=== PATIENT | male | born 1955 | race Caucasian/White ===

== ENCOUNTER 2017-08-18 16:45 | Inpatient (IN) ==
[2017-08-18] MEDS ORDERED: Acetaminophen 325 MG TABLET PO ONE (19:05)
[2017-08-18] MEDS ORDERED: Naloxone 0.4 MG/ML INJ IVP PRN (19:32)
[2017-08-18] MEDS ORDERED: Acetaminophen 325 MG TABLET PO PRN (19:32)
[2017-08-18] MEDS ORDERED: Ondansetron 4 MG/2 ML VIAL IVP PRN (19:32)
--- NOTE | 2017-08-18 20:48 | Internal Med History&Physical ---
Date of Encounter: 08/18/17 Time of Encounter: 20:15 Assessment and Plan (1) NSTEMI (non-ST elevated myocardial infarction) Current visit: No Status: Acute Non-ST elevation [place] - currently chest pain-free Continue Aspirin, Plavix, Lipitor, Coreg, NTG as needed, IV Morphine as needed Avoid IV Heparin due to recent subdural hematoma Chest x-ray - no acute process EKG - sinus rhythm with no acute ST-T changes Troponin - 0.92, cycle troponin BNP - 85 Echocardiogram - pending PT/INR - 10.8/1.0 Cardiology consult - discussed with Dr. Steel, advised to continue Aspirin, Plavix for now Cardiac telemetry, labs in a.m., monitor closely (2) Subdural hematoma Current visit: Yes Status: Acute Recent Subdural Hematoma - s/p mechanical fall with injury - did not require any surgical intervention - no obvious focal neurological deficits Discharged from [facility] about 2 weeks ago Follow-up CT brain was done about 2 days ago as outpatient and results are pending Medical records from [facility] requested (3) CAD (coronary artery disease) Current visit: Yes Status: Chronic History of coronary artery disease status post stent Patient has been on Aspirin, Plavix and statin Qualifiers: Coronary Disease-Associated Artery/Lesion type: [place] artery [place] vs. transplanted heart: [place] heart Associated angina: with stable angina Qualified Code(s): I25.118 - Atherosclerotic heart disease of [place] coronary artery with other forms of angina pectoris (4) Hyperlipidemia Current visit: Yes Status: Chronic Continue Lipitor Qualifiers: Hyperlipidemia type: unspecified Qualified Code(s): E78.5 - Hyperlipidemia , unspecified (5) Alcohol abuse Current visit: Yes Status: Chronic Counseled about cessation, monitor for alcohol withdrawal Continue IV Thiamine, Folic Acid, CIWA protocol (6) Tobacco abuse Current visit: Yes Status: Chronic Patient states he smokes about 1 pack of cigarettes daily Counseled about cessation (7) DVT prophylaxis Current visit: Yes Status: Acute Continue SCDs, avoid anticoagulants due to recent subdural hematoma Internal Medicine - H&P: HPI Chief complaint: Chest pain Admitted From: Emergency Dept Plans for Post Hospital Care: Home History of present illness: Mr. Arriaza is a 62 year old male with past medical history of CVA, hyperlipidemia , hypertension, coronary artery disease status post stent and recent subdural hematoma. Patient presents as a transfer from [facility] for chest pain. Examined in the room. Patient is awake and alert. Not in any distress. Able to provide history. and daughter are at bedside. Patient states he woke up at around 10 AM this morning with chest pain. Patient describes it as left side and substernal chest pain radiating to left arm. Describes it as constant burning and pressure type of pain. He initially thought it was heartburn. Initial pain was 7 out of 10. Pain was constant. Patient was then taken to the ED by his , about 6 hours after symptom onset. Patient also complains of palpitations and mild shortness of breath. No aggravating factors. Alleviated with nitroglycerin. Patient states he is currently chest pain-free. States he is hungry and wants to eat something now. No other associated symptoms. According to family, patient had a subdural hematoma about 4 weeks ago, and was admitted at [facility]. Patient patient was in the hospital for about 2 weeks because of the subdural hematoma and alcohol withdrawal. Patient had a follow-up CT scan as outpatient about 2 days ago, and the results are still pending. Patient states he continues to smoke about 1 pack cigarettes daily. He states he had about 3-4 beers yesterday. Initial workup at [facility] revealed elevated troponin at 0.10. I do not have an EKG from [facility] at this time. Chest x-ray is negative. Repeat troponin here is 0.92, and EKG shows sinus rhythm and I do not see any acute ST- T changes. Patient has been given Aspirin, Plavix and Lipitor. He cannot receive IV Heparin at this time because of recent subdural hematoma. I have discussed with on-call jointer machine operator, Dr. Samy Steel. He agrees with continuing only Aspirin and Plavix. Patient will be evaluated by cardiology. I have discussed with the patient and his family regarding his condition and that he has NSTEMI. They are interested and agreed. Today also that IV heparin cannot be given at this time. CODE STATUS full code. Past Med Surg Social Fam HX - Past Medical History Medical history: CVA, hyperlipidemia, hypertension, myocardial infarction Psychiatric history: depression - Past Surgical History Surgical History: angioplasty/stent - Social History Smoking Status: Current every day smoker Smokeless Tobacco Status: No Alcohol use: heavy, recent Drug use: none Internal Medicine - H&P: Meds Atorvastatin [Lipitor] 40 mg PO HS 08/18/17 [History] Carvedilol [Coreg] 6.25 mg PO BIDWM 08/18/17 [History] Clopidogrel [Plavix] 75 mg PO DAILY 08/18/17 [History] FLUoxetine HCl [Fluoxetine HCl] 10 mg PO DAILY 08/18/17 [History] NIFEdipine [Nifedipine ER] 90 mg PO DAILY 08/18/17 [History] 3 Allergy/AdvReac Type Severity Reaction Status Date / Time No Known Allergies Allergy Verified 07/07/17 09:48 All Systems PM: A 10-system review of systems was performed and is negative for pertinent findings except as documented above in the HPI. - Constitutional Constitutional: no fatigue, no fever(s), no weakness - EENT Eyes: no blurry vision - Cardiovascular Cardiovascular ROS IM: chest pain, palpitations, no diaphoresis, no dyspnea, no dyspnea on exertion, no edema, no lightheadedness, no orthopnea, no syncope - Gastrointestinal Gastrointestinal: heartburn, no abdominal pain, no bloating, no cramping, no diarrhea, no hematemesis, no hematochezia, no nausea, no vomiting - Genitourinary Genitourinary ROS male: no dysuria - Musculoskeletal Musculoskeletal ROS IM: no back pain - Neurological Neurological ROS: no confusion, no dizziness, no loss of vision, no numbness, no tingling - Constitutional Vitals: Temp Pulse Resp BP Pulse Ox 98.0 F 94 20 132/93 96 08/18/17 18:38 08/18/17 18:38 08/18/17 18:38 08/18/17 18:38 08/18/17 18:38 General appearance: Present: cooperative, A&O X 3, pleasant, no acute distress, answers questions appropriately - Head Head exam: Present: atraumatic - Eye Eye exam: Present: EOMI - ENT ENT exam: Present: mucous membranes moist - Neck Neck exam general surgery: Present: full ROM - Respiratory Respiratory exam: Present: CTAB. Absent: accessory muscle use, chest wall tenderness, rales, rhonchi, wheezes, tachypnea - Cardiovascular Cardiovascular exam: Present: RRR, +S1, +S2 - GI/Abdominal GI/Abdominal exam: Present: soft. Absent: distended, firm, guarding, tenderness - Extremities Exam Extremities exam: Present: radial pulses palpable and symmetrical. Absent: calf tenderness, cyanotic, pedal edema - Neurological Exam Neurological exam: Present: alert, oriented X3, no focal deficits. Absent: facial droop, speech deficit
[2017-08-18] MEDS ORDERED: Folic Acid 1 MG TABLET PO SCH (21:00)
[2017-08-18] MEDS ORDERED: Thiamine (B-1) 100 MG in D5% in Water 50 ML IVPB SCH (21:00)
[2017-08-18] MEDS ORDERED: Nitroglycerin 0.4 MG TAB.SUBL SL PRN (21:52)
[2017-08-19 02:52] LABS: Prothrombin Time 11.1 Seconds (9.4-12.1)
[2017-08-19 02:56] LABS: Basophils % 0.6 %; Eosinophils # 0.2 K/mcL (0.0-0.6); Eosinophils % 2.5 %; Hematocrit 41.1 % (37.5-50.1); Hemoglobin 13.7 g/dL (12.9-16.9); Immature Granulocytes % 0.3 % (0-4); Lymphocytes # 1.5 K/mcL (0.6-4.6); Lymphocytes % 24.5 %; Mean Corpuscular HGB Conc 33.3 g/dL (31.6-35.5); Mean Corpuscular Hemoglobin 32.9 pg (28.0-33.3); Mean Corpuscular Volume 98.6 fL (83.0-100.0); Mean Platelet Volume 9.6 fL (9.4-12.4); Monocytes # 0.7 K/mcL (0.0-1.3); Monocytes % 11.5 %; Neutrophils # 3.8 K/mcL (1.6-8.9); Platelet Count 292 K/mcL (140-400); Red Blood Count 4.17 M/mcL (4.19-5.50); Red Cell Distribution Width 13.4 % (11.5-14.5); Segmented Neutrophils % 60.6 %
[2017-08-19 03:12] LABS: BUN/Creatinine Ratio 9 (6-26); Blood Urea Nitrogen 9 mg/dL (8-26); Calcium 8.6 mg/dL (8.6-10.8); Carbon Dioxide 21 mEq/L (19-29); Chloride 106 mEq/L (98-109); Cholesterol 149 mg/dL (< 200); Glucose 113 mg/dL (70-99); HDL Cholesterol 25 mg/dL (40-59); LDL Cholesterol,Calculated 94 mg/dL (0-99); Osmolality,Calculated 285 (280-300); Potassium 3.6 mEq/L (3.5-4.5); Sodium 138 mEq/L (136-145); Triglycerides 151 mg/dL (< 150); eGFR For African Americans > 60 (> 60); eGFR For Non-African Americans > 60 (> 60)
[2017-08-19] MEDS ORDERED: Heparin 25,000 UNIT/500 ML D5W 25,000 UNIT/500 ML MLS IVC SCH (03:30)
--- NOTE | 2017-08-19 03:39 | Event Note ---
Date of Encounter: 08/19/17 Time of Encounter: 03:15 Troponin has bumped up to 2.98. Repeat EKG does not show any changes from the previous EKG, sinus rhythm with no acute ST-T changes. Patient is awake and alert. Not in any distress. Denies chest pain or shortness of breath. He is resting comfortably. HR 90, BP 110/68, O2 sat 94% on room air. Heart: S1-S2 positive. Lungs: bilateral good air entry with no wheezes or crackles. I had discussed with on-call neurologist Dr. Pacheco earlier, regarding patient's recent subdural hematoma. Since patient does have a NSTEMI, he advised that patient can be started on low-dose IV Heparin without any bolus. Advised to closely monitor patient. IV Heparin was held until the medical records from [facility] were faxed back to us. I have reviewed the discharge summary and all the CT scans that were done recently. Patient was admitted for left frontal subdural hematoma after a mechanical fall. Most recent CT scan of the head w/o contrast was done on 08/16/2017 at [facility]. Report states that the left frontal hematoma has now resolved and the patient has a small residual hygroma. When patient was discharged, he was advised to continue Plavix. Patient will be started on low-dose IV Heparin as per protocol without any bolus. Patient will be monitored closely with neuro checks. Cardiology will evaluate patient this morning.
[2017-08-19 03:45] LABS: Bilirubin,Urine Negative (Negative); Blood,Urine Negative (Negative); Clarity,Urine Clear (Clear); Color,Urine Yellow (Yellow); Glucose,Urine (UA) Normal (Normal); Ketones,Urine Negative (Negative); Leukocyte Esterase,Urine Negative (Negative); Nitrite,Urine Negative (Negative); Protein,Urine Negative (Neg-Trace); Urobilinogen,Urine Normal (Normal)
[2017-08-19] MEDS ORDERED: 0.9 % Sodium Chloride 250 ML ONE (04:16)
[2017-08-19 04:27] LABS: Activated Partial Thrombo Time 28.7 Seconds (26.0-36.0)
[2017-08-19] MEDS ORDERED: Famotidine 20 MG/2 ML VIAL IVP SCH (06:00)
[2017-08-19] MEDS: *HR* Morphine 2 MG/ML SYRINGE IVP PRN ×2 (06:22→11:03)
--- NOTE | 2017-08-19 08:35 | Neurology - Consult Note ---
Date of Encounter: 08/19/17 Time of Encounter: 08:30 Assessment and Plan (1) History of subdural hematoma Current Visit: Yes Status: Acute Neurology was consulted for recommendations concerning use of heparin in patient who had former a former, traumatic subdural hematoma on 07/07/17. He had obtained the subdural hematoma after suffering a mechanical fall and hitting his head on his dryer. At that time he denied having any neurological symptoms other than headache. He reports these have a continuation of a headache for the past 6 week and continues to deny having any neurological symptoms. He will follow-up CT performed at [place] on 08/16/17 showed resorption of prior hematoma. Recommendation continue heparin without bolus Continue to monitor patient neurologic status Cease anticoagulation when able Plan for patient NSTEMI per primary team and cardiology (2) NSTEMI (non-ST elevated myocardial infarction) Current Visit: Yes Status: Acute Patient presented to [facility] with complaints of chest pain that have elevated troponin of 0.1 repeat troponins showed continued elevation to 2.98. Plan per primary team and cardiology (3) Alcohol abuse Current Visit: Yes Status: Chronic Patient reports drinking at least 2-3 beers a day. Continue neurologic checks Consider [facility] History of Present Illness Chief complaint: NSTEMI HPI: Mr. Arriaza is a 62 year old male with prior medical history of CVA (2 years ago), hypertension, hyperlipidemia, and coronary artery disease (s/p stent placement 2 years) who presented to the [facility] yesterday afternoon because of chest pain. He was found to have a NSTEMI and transferred to [place]. Neurology was consulted for recommendations concerning anticoagulation given patient had subdural hematoma [address] Pacheco was spoken to by the emergency room patient was placed on a heparin drip without bolus. Patient reports that he had developed the sudden dural hematoma 6 weeks ago after suffering a mechanical fall at home. He states he tripped on a step and hit his head on the dryer. He reports his only neurological symptom of that time was development of headache. He states his headache has persisted since that time being alleviated with running of his posterior right mastoid area. The pain is a 8/10 in severity on the right side of his head and nonradiating. He denies that at that time he had any sensation changes, weakness, or visual disturbances. He continues to deny having any of those neurological symptoms and states he has had relief of his headache with use of the morphine in the ER last night. Past Med Surg Social Fam HX - Past Medical History Medical history: CVA, hyperlipidemia, hypertension, myocardial infarction Psychiatric history: depression - Past Surgical History Surgical History: angioplasty/stent - Social History Smoking Status: Current every day smoker Smokeless Tobacco Status: No Alcohol use: heavy, recent Drug use: none Medications and Allergies Atorvastatin [Lipitor] 40 mg PO HS 08/18/17 [History] Carvedilol [Coreg] 6.25 mg PO BIDWM 08/18/17 [History] Clopidogrel [Plavix] 75 mg PO DAILY 08/18/17 [History] FLUoxetine HCl [Fluoxetine HCl] 10 mg PO DAILY 08/18/17 [History] NIFEdipine [Nifedipine ER] 90 mg PO DAILY 08/18/17 [History] 3 Allergy/AdvReac Type Severity Reaction Status Date / Time No Known Allergies Allergy Verified 07/07/17 09:48 - Constitutional Constitutional ROS IM: fever(s), headache(s), no chills, no night sweats - Nose, Mouth, Throat Nose, mouth and throat: no disequilibrium, no dizziness - Cardiovascular Cardiovascular ROS IM: chest pain, diaphoresis, no lightheadedness, no palpitations - Respiratory Respiratory IM: no cough, no chest congestion - Gastrointestinal Gastrointestinal: no abdominal pain, no nausea, no vomiting - Neurological Neurological ROS: headache(s), no dizziness, no focal weakness, no frequent falls, no lack of coordination, no numbness, no tingling, no tremor(s), no vertigo, no weakness, no other visual disturbances Physical Examination - Vital Signs Vital Signs: Initial Vital Signs Temp Pulse Resp BP Pulse Ox 98.0 F 94 20 132/93 96 08/18/17 18:38 08/18/17 18:38 08/18/17 18:38 08/18/17 18:38 08/18/17 18:38 - Exam Exam: General: Cooperative, pleasant, no acute distress, alert and oriented 3, answers questions appropriately HEENT: Normocephalic, atraumatic, neck supple, trachea midline, Conjunctiva pink , sclera anicteric, EOMI, PERRL, oral mucosa moist, no orophargeal erythema or exudates Respiratory: No accessory muscle usage, Diffuse rhonchi Cardiovascular: Regular rate and rhythm, S1 and S2 present, no murmurs/rubs/ gallops/clicks appreciated GI/abdominal: Nondistended, nontender, soft, normal bowel sounds, no peritoneal signs Extremities: No calf tenderness, noncyanotic, no pedal edema appreciated, warm, lower extremity pulses palpable and symmetrical Neurological: Alert and oriented 3, no facial droop, no focal deficits, cranial nerves II through XII intact and without focal deficit, finger to nose and heel to man intact, rapid alternating movements through the good anabel, strength 5/5 in bilateral upper and lower extremities, sensation to light touch grossly intact in upper and lower extremity bilaterally, DTRs 2+/5 in Achilles, patellar, biceps, brachioradialis Skin: Dry, intact, normal color Results - Laboratory Findings CBC and BMP: 08/19/17 02:40 08/19/17 02:40 Abnormal lab findings: Abnormal lab results RBC 4.17 M/mcL (4.19-5.50) L 08/19/17 02:40 Glucose 113 mg/dL (70-99) H 08/19/17 02:40 Troponin I 2.98 ng/mL (0-0.03) H* 08/19/17 02:40 Triglycerides 151 mg/dL (< 150) H 08/19/17 02:40 HDL Cholesterol 25 mg/dL (40-59) L 08/19/17 02:40 Cholesterol/HDL Ratio 6.0 (0-4.9) H 08/19/17 02:40 Consult Discharge Plan - Plan Referrals: NONE,PCP [Primary Care Provider] -
[2017-08-19] MEDS ORDERED: NIFEdipine XL (24 HR) 30 MG TAB.ER.24 PO SCH (09:00)
[2017-08-19] MEDS ORDERED: FLUoxetine 20 MG CAPSULE PO SCH (09:00)
[2017-08-19] MEDS ORDERED: Thiamine (B-1) 100 MG TABLET PO SCH ×2 (09:00→18:00)
[2017-08-19] MEDS: FLUoxetine HCl 10 MG CAPSULE PO SCH (09:33)
[2017-08-19] MEDS: Aspirin 81 MG TAB.CHEW PO SCH (09:33)
[2017-08-19] MEDS: Multivit/Ca/Min/Fe/FA 1 TAB TABLET PO SCH (09:33)
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
[2017-08-19] MEDS ORDERED: *HR* HYDROcodone/Acet 5/325 mg TABLET PO PRN (11:59)
[2017-08-19] MEDS ORDERED: *HR* LORazepam 1 MG TABLET PO PRN (12:00)
[2017-08-19] MEDS ORDERED: Heparin 1,000 UNITS/500 mL NS 500 ML ONE (13:03)
[2017-08-19] MEDS ORDERED: *HR* Heparin 10,000 UNIT/10 ML VIAL ONE (13:03)
[2017-08-19] MEDS ORDERED: 0.9 % Sodium Chloride 1,000 ML ONE ×2 (13:03→13:43)
[2017-08-19] MEDS ORDERED: Nitroglycerin 1,000 MCG/10 ML VIAL IV ONE (13:17)
[2017-08-19] MEDS ORDERED: *HR* FentaNYL (PF) 100 MCG/2 ML VIAL ONE (13:43)
[2017-08-19] MEDS ORDERED: *HR* Midazolam HCl 2 MG/2 ML VIAL ONE (13:43)
--- NOTE | 2017-08-19 13:49 | Pre-Sedation Evaluation ---
Pre-sedation evaluation - Pre-sedation checklist Date of procedure: 08/19/17 Procedure: [facility] Recent Vitals: Last Vital Signs Temp 98.5 F 08/19/17 11:28 Pulse 98 08/19/17 11:28 Resp 20 08/19/17 11:28 BP 136/93 08/19/17 11:28 Pulse Ox 95 08/19/17 11:28 H&P (including ROS) documented in medical record: Yes Previous reaction to sedatives/anesthetics: No Dietary Status: NPO after Midnight Airway Assessment: Patient can open mouth completely, TMJ function normal, Micrognathia (under-bite, receding chin) absent, Neck with adequate range of motion Dentition: poor dentition Possible difficult airway: No ASA Classification *see protocol: CLASS II-Mild systemic disease Plan of Care: Pt appropriate candidate for procedure/moderate/conscious sedation , Risks/benefits of procedure/sedation discussed w/ patient/family
[2017-08-19] MEDS ORDERED: *HR* Bivalirudin 250 MG VIAL IVC ONE ×2 (14:03→15:05)
[2017-08-19] MEDS ORDERED: *HR* Ticagrelor 90 MG TABLET ONE (14:58)
--- NOTE | 2017-08-19 15:27 | Invasive Diagnostic Lab Proc ---
Name: Matthieu Arriaza Date of Study: 08/19/2017 Date: 1955 Ht: 70.0in Medical Record#: [id number] Age: 62 Wt: 163.36lb Gender: Male BSA: 1.92 Order #: [id number] BMI: 23.44 Physicians Procedure Physician: Lala Steel MD, FACC Referring MD: Referring MD: Staff Name Position Time In Alexus Lui RN Drink Box Mechanic 01:38 PM Kelsie Peck RT (R) Scrub 01:38 PM Agustin Crowell RT (R) Monitor 01:38 PM Indications Indication Non-Stemi Procedures Performed Procedure L HRT ARTERY/VENTRICLE ANGIO PRQ CARD BM STENT W/ANGIO 1 VSL Pre-Procedure Checklist Informed consent is complete signed and on chart. H&P is on chart. ID band is on and ID verified with patient. Patient NPO for procedure The procedure was described for the patient and questions were answered. Blood Pressure: 138/94 ECG is on chart. Rhythm: NSR Plan of Care Patient will tolerate the procedure without complications. Adequate level of comfort will be maintained. Hemodynamics will remain stable Patient will recover from procedure without complications. Respiratory function will be maintained. Cardiac rhythm will remain stable. Patient temperature will be maintained. Patient and/or family have verbalized understanding of the procedure. Patient Education Chief Complaint/Reason for Test: Cardiac Cath Developmental Category: Geriatric (65+ years) Developmentally Appropriate for Age: Yes Learning Barriers: None Education Needs: Procedure Education Method: Verbal Information Taught: Cardiac Cath Educational Evaluation: Able to repeat information Intravenous Access Time IV Size Location DC'd Fluid/Drip Rate Units RN 01:40 PM 18g 1 11/24" Patent On Arrival Lt Antecubital 0.9NaCl 25 ml/hr Alexus Lui RN Allergies No Known Allergies Vital Signs Time BP (mmHg) HR (bpm) O2 Sat. RR (bpm) LOC 01:39 PM 138 / 94 92 100 % 16 5 = Fully awake and oriented or at pre-proc level 01:49 PM 138 / 94 91 99 % 10 01:54 PM 125 / 92 90 98 % 13 01:59 PM 123 / 88 87 99 % 14 02:04 PM 121 / 86 86 100 % 13 02:09 PM 114 / 83 85 100 % 12 02:14 PM 117 / 86 84 100 % 12 02:19 PM 115 / 82 84 99 % 13 02:24 PM 122 / 85 84 100 % 14 02:29 PM 121 / 83 83 100 % 12 02:34 PM 124 / 92 84 100 % 13 02:39 PM 137 / 99 86 100 % 13 02:44 PM 140 / 100 86 100 % 16 02:49 PM 144 / 102 88 100 % 12 02:50 PM 132 / 104 93 99 % 19 02:55 PM 132 / 98 89 96 % 17 03:00 PM 137 / 90 81 95 % 20 Procedural Medications Time Medication Dose Units Method Given By 01:50 PM Oxygen 2 L/min nasal cannula Alexus Lui RN 01:51 PM Versed 2 mg Intravenous Alexus Lui RN 01:51 PM Fentanyl 50 mcg Intravenous Alexus Lui RN 01:57 PM Benadryl 25 mg Intravenous Alexus Lui RN 01:57 PM Lidocaine 2% 12 ml Subcutaneous Lala Steel MD, FACC 02:04 PM Angiomax 0.75mg/kg bolus: 11 ml Intravenous Alexus Lui RN 02:04 PM Angiomax 1.75mg/kg/hr: 26 ml Intravenous Alexus Lui RN 02:53 PM Nitroglycerin 200 mcg Intracoronary Lala Steel MD, FACC 03:03 PM Brilinta 180 mg Orally Alexus Lui RN ASA Classification: CLASS II- Mild systemic disease (i.e. well-controlled diabetes, hypertension, asthma, cigarette smoking) Rody Score Preprocedure Postprocedure Activity 2- Moves 4 extremities sustained head lift Activity 2- Moves 4 extremities sustained head lift Circulation 2- SBP +/= 20 points of pre-anesthetic level Circulation 2- SBP +/= 20 points of pre-anesthetic level Consciousness 2- Awake and alert oriented x 3 Consciousness 2- Awake and alert oriented x 3 O2 Saturation 2- Able to maintain O2 satruation of 92% on room air O2 Saturation 2- Able to maintain O2 satruation of 92% on room air Respiratory 2- Able to deep breathe and cough well Respiratory 2- Able to deep breathe and cough well Total Score 10 Total Score 10 Contrast Agent: Isovue Diagnostic Contrast: 164 ml Total Contrast: 164 ml Fluoro Dose: 891 mGy Procedure Log Time Note Enter By 01:38 PM CathStat 01:38 PM Pt arrived to manager laboratory 1 at 13:38 01:38 PM Patient charges- Angio tray pack, Navilyst 3mm J, Pulse Oximetry and ACIST tubing and transducer :38 PM Case Delayed No :38 PM Alexus Lui RN Position: Drink Box Mechanic Time in: 13:38 01:38 PM Kelsie Peck RT (R) Position: Scrub Time in: ::39 PM Agustin Crowell RT (R) Position: Monitor Time in: ::39 PM Time: 13:39 Patient comfortable and pain free: Yes :39 PM Time: 13:39LOC: 5 = Fully awake and oriented or at pre-proc level :39 PM Clinical Presentation: Non-STEMI 01:41 PM Physician arrived 13:41 :41 PM ASA Class CLASS II- Mild systemic disease (i.e. well-controlled diabetes, hypertension, asthma, cigarette smoking) :41 PM Meet and greet completed :41 PM Sign in performed according to hospital policy. [email or web address] 22:41 PM Procedure start 13:41 :48 PM Vitals capture started with the following parameters, Patient=Adult, Interval=5 min, Initial Mbgyjxek=574 mmHg, Deflation Rate=5 mmHg, Cuff placed on Right Arm 01:49 PM HR=91 bpm, NTDC=186/94 mmhg, SpO2=99.0 %, Resp=10 B/min 01:51 PM Time: 13:50 Oxygen on at 2 L/min per nasal cannula by Alexus Lui RN :51 PM Time: 13:51 Versed 2 mg Intravenous Given by Alexus Lui RN :51 PM Time: 13:51 Fentanyl 50 mcg Intravenous Given by Alexus Lui RN :51 PM Hair removed from procedure site in procedure lab using clippers. Bilateral groin prepped with Chloraprep by Kelsie Peck RT (R), safety strap applied then patient was draped. Skin intact. :51 PM Recorded ECG: HR=90 Condition=Condition 1 01:53 PM Pressure channel 2 zeroed. 01:54 PM HR=90 bpm, ABPC=243/92 mmhg, SpO2=98.0 %, Resp=13 B/min 01:55 PM Time out performed according to hospital policy 01:57 PM Time: 13:57 Benadryl 25 mg Intravenous Given by Alexus Lui RN 01:57 PM Time: 13:57 12 ml Lidocaine 2% to right groin Subcutaneous Given by Lala Steel MD, [facility] 01:58 PM Access obtained by percutaneous puncture. 5Fr 10cm Terumo [place] sheath placed in right Femoral artery. [id number] 01:59 PM HR=87 bpm, NZTW=505/88 mmhg, SpO2=99.0 %, Resp=14 B/min 01:59 PM 5Fr FL 4 catheter inserted over the wire [facility] :59 PM 0.035 145cm Navilyst 3mmJ wire [id number] 01:59 PM LCA angiography performed in multiple views. 02:00 PM Recorded Pressure: Ao, HR=89, Condition=Condition 1 (Aorta) Ao 476/-73/214 02:00 PM Recorded Pressure: Ao, HR=87, Condition=Condition 1 (Aorta) Ao 115/92/103 02:01 PM Catheter removed 02:01 PM RCA angiography performed in multiple views. 02:02 PM Recorded Pressure: Ao, HR=87, Condition=Condition 1 (Aorta) Ao 110/85/98 02:02 PM Catheter removed 02:03 PM Sheath exchanged for a 6 Fr 11 cm Cordis Siena sheath [id number] 02:04 PM HR=86 bpm, LKJJ=752/86 mmhg, FaE7=498.0 %, Resp=13 B/min 02:04 PM Time: 14:04 Angiomax 0.75mg/kg bolus: 11 ml Intravenous Given by Alexus Lui RN Simon pump 02:04 PM Time: 14:04 Angiomax 1.75mg/kg/hr: 26 ml Intravenous Given by Alexus Lui RN Simon pump 02:05 PM 6Fr XB LAD 3.5 [place] Bright-Tip guide catheter was used to cannulate the PCI vessel successfully. reused? No [email or web address] 02:05 PM Lesion found in Proximal LAD. Pre Stenosis: 100 Pre BRE Flow: [email or web address] 02:05 PM Proximal Left Anterior Descending Coronary Artery with 100% stenosis. If graft is supplying this territory, 0 % stenosis. [email or web address] 02:05 PM Coronary Dominance: right [email or web address] 02:07 PM .014 Prowater 180cm guide wire across target lesion- . reused? No [email or web address] 02:07 PM Recorded Pressure: Ao, HR=86, Condition=Condition 1 (Aorta) Ao 115/74/92 02:09 PM HR=85 bpm, LBEU=067/83 mmhg, EgO4=688.0 %, Resp=12 B/min 02:11 PM .014 ChoICE PT Extra Support 300cm guide wire across target lesion- successful. reused? No [email or web address] 02:12 PM Inflation device was opened. [email or web address] 02:14 PM HR=84 bpm, YRTT=079/86 mmhg, KtQ7=941.0 %, Resp=12 B/min 02:14 PM Recorded Pressure: Ao, HR=85, Condition=Condition 1 (Aorta) Ao 109/79/93 02:16 PM 1.5 mm x 15 mm Emerge OTW balloon across target lesion- successful. reused? No [email or web address] 02:19 PM HR=84 bpm, ORQW=822/82 mmhg, SpO2=99.0 %, Resp=13 B/min 02:21 PM Guide wire removed intact. Choice PT to reshape. [email or web address] 02:24 PM HR=84 bpm, WYYU=577/85 mmhg, QgV0=170.0 %, Resp=14 B/min 02:29 PM HR=83 bpm, SAUP=943/83 mmhg, JqD4=078.0 %, Resp=12 B/min 02:29 PM Guide wire removed intact. choice Pt [email or web address] 02:30 PM .014 Fielder XT 300cm guide wire across target lesion- successful. reused? No [email or web address] 02:34 PM HR=84 bpm, BZQQ=581/92 mmhg, VuY7=069.0 %, Resp=13 B/min 02:39 PM HR=86 bpm, STWJ=154/99 mmhg, CqY6=602.0 %, Resp=13 B/min 02:41 PM Lesion found in Mid RCA. Pre Stenosis: 90 Pre BRE Flow: [email or web address] 02:42 PM Guide wire removed intact. [email or web address] 02:42 PM Guide wire removed intact. [email or web address] 02:42 PM Guide catheter removed intact. [email or web address] 02:42 PM Balloon catheter removed intact. [email or web address] 02:43 PM Recorded Pressure: Ao, HR=88, Condition=Condition 1 (Aorta) Ao 146/93/114 02:43 PM 6Fr JR 4 [place] Bright-Tip guide catheter was used to cannulate the PCI vessel successfully. reused? No [email or web address] 02:44 PM HR=86 bpm, VVGH=103/100 mmhg, QiJ3=224.0 %, Resp=16 B/min 02:44 PM prowater adavanced [email or web address] 02:45 PM 2.0 mm x 15 mm Emerge Monorail balloon across target lesion- successful. reused? No [email or web address] 02:45 PM Balloon inflated @ 14 melvi for 20 seconds [email or web address] 02:46 PM Right Coronary, Right Posterior Descending Arteries with Right Posterolateral and Acute Marginal branches with 90 % stenosis. If graft is supplying this area, 0 % stenosis [email or web address] 02:47 PM Balloon catheter removed intact. [email or web address] 02:48 PM 3.5mm x 24mm Synergy drug-eluting stent across target lesion- successful Lot #[id number] [email or web address] 02:49 PM HR=88 bpm, SXMH=548/102 mmhg, XkW7=489.0 %, Resp=12 B/min 02:49 PM Vitals capture stopped. 02:49 PM Vitals capture started with the following parameters, Patient=Adult, Interval=5 min, Initial Brxpzjhe=149 mmHg, Deflation Rate=5 mmHg, Cuff placed on Right Arm 02:49 PM Stent deployed @ 12 melvi for 30 seconds [email or web address] 02:50 PM HR=93 bpm, GBFO=652/104 mmhg, SpO2=99.0 %, Resp=19 B/min 02:50 PM Recorded Pressure: Ao, HR=86, Condition=Condition 1 (Aorta) Ao 140/97/116 02:51 PM Stent balloon reinflated @ 16 melvi for 20 seconds [email or web address] 02:52 PM Stent delivery system removed intact. [email or web address] 02:53 PM Time: 14:53 Nitroglycerin 200 mcg Intracoronary Given by Lala Steel MD, [facility] [email or web address] 02:54 PM Guide wire removed intact. [email or web address] 02:54 PM Guide catheter removed intact. [email or web address] 02:55 PM HR=89 bpm, XRMC=222/98 mmhg, SpO2=96.0 %, Resp=17 B/min 02:55 PM 5Fr Pigtail catheter inserted over the wire [facility] [email or web address] 02:55 PM Catheter selectively placed in left ventricle [email or web address] 02:55 PM Pressure channel 2 zeroed. 02:56 PM Recorded Pressure: LV, HR=84, Condition=Condition 1 (Left Ventricle) LV 113/14/16 02:56 PM Bolus angiogram of left Ventricle complete: 8 ml/sec for a total of 24 mls [email or web address] 02:56 PM Recorded Pressure: LV, Ao, HR=83, Condition=Condition 1 (Left Ventricle) LV 109/26/32, (Aorta) Ao 119/47/80 02:56 PM Catheter removed [email or web address] 02:57 PM Bolus angiogram of right Femoral complete: 4 ml/sec for a total of 7 mls [email or web address] 02:57 PM Procedure completed at 14:57 [email or web address] 02:58 PM Sign out completed: Radiation Dose mGy Fluoro Time: 24 Isovue 370 - 200ml contrast 164 ml given by Lala Steel MD, [facility]. Complications: NoneCardiac Rehab Consult needed: YesConfirmed administered medications: Yes [email or web address] 02:58 PM Sheath left in place to be pulled on floor/holding areaV+Pad [email or web address] 03:00 PM HR=81 bpm, FUIM=281/90 mmhg, SpO2=95.0 %, Resp=20 B/min 03:00 PM Post ECG NSR [email or web address] 03:00 PM Post Blood Pressure 137/90 [email or web address] 03:01 PM Lesion found in Proximal RCA. Pre Stenosis: 25 Pre BRE Flow: [email or web address] 03:01 PM Lesion found in Distal RCA. Pre Stenosis: 30 Pre BRE Flow: [email or web address] 03:02 PM Lesion found in LMCA. Pre Stenosis: 15 Pre BRE Flow: [email or web address] 03:02 PM Left Main Coronary Artery with 15% stenosis [email or web address] 03:02 PM Lesion found in 1st Diagonal. Pre Stenosis: 30 Pre BRE Flow: [email or web address] 03:02 PM Mid/Distal Left Anterior Descending Coronary Artery and diagonal branches with 30% stenosis. If graft is supplying this area, 0 % stenosis [email or web address] 03:02 PM Lesion found in Proximal Circumflex. Pre Stenosis: 30 Pre BRE Flow: [email or web address] 03:02 PM Circumflex, Obtuse Marginal, Left Posterior Descending, and Left Posterolateral Coronary Arteries with 30 % stenosis. If graft is supplying this area, 0 % stenosis [email or web address] 03:03 PM Lesion found in 1st RPL. Pre Stenosis: 50 Pre BRE Flow: [email or web address] 03:03 PM Lesion found in Ramus. Pre Stenosis: 25 Pre BRE Flow: [email or web address] 03:03 PM Ramus with 25% stenosis. If graft is supplying this area, 0 % stenosis [email or web address] 03:03 PM Time: 15:03 Brilinta 180 mg Orally Given by Alexus Lui RN [email or web address] 03:04 PM Vitals capture stopped. 03:04 PM Information taught Cardiac Cath and PCI [email or web address] 03:04 PM Education needs Procedure, Plan of Care, and Disease Process [email or web address] 03:04 PM Learning barriers :Sedated [email or web address] 03:04 PM Education Methods Verbal [email or web address] 03:05 PM Education evaluation Needs further instruction [email or web address] 03:05 PM Site status No bleeding/hematoma - Rt Groin as reported by Kelsie Peck RT (R) at 15:05 [email or web address] 03:05 PM Opsite applied [email or web address] 03:05 PM Delay to floor No [email or web address] 03:05 PM Family placed in consult room. [email or web address] 03:05 PM Complications: None [email or web address] 03:05 PM Fluoro Time: 24 [email or web address] 03:05 PM Isovue 370 - 200ml contrast 164 ml given by Lala Steel MD, [facility]. [email or web address] 03:05 PM Radiation Dose 891.39 mGy [email or web address] 03:12 PM 15:12 Post Pulses Bilateral DP & PT 2+ [email or web address] 03:15 PM Report given to carrie VELAZCO Pt taken to Room #10. 15:12 [email or web address] 03:18 PM Patient out of room: 15:18 [email or web address] Complications Complication None None Hemodynamics Pressures Site Systolic/A Wave Diastolic/V Wave Mean AO 476 -73 214 AO 115 92 103 AO 110 85 98 AO 115 74 92 AO 109 79 93 AO 146 93 114 AO 140 97 116 LV 113 14 16 LV 109 26 32 AO 119 47 80 Post Procedure Information Blood Pressure: 137/90 mmHg Rhythm: NSR Post procedural instructions were given Site Checks Time Location Status Staff Sheath In? Note 03:05 PM Rt Groin No bleeding/hematoma Kelsie Peck RT (R) Pulses Time Site Pre-Procedure Post-Procedure Note 08/19/2017 1:40:00 PM Bilateral DP & PT 2+ 08/19/2017 1:40:00 PM Bilateral radial 2+ 3:18:00 PM Bilateral DP & PT 2+ Updated by Agustin Crowell RT (R) on 08/19/2017 3:19:04 PM Agustin Crowell RT electronically signed on 08/19/2017 3:19:29 PM with status of Final
--- NOTE | 2017-08-19 16:46 | Internal Med Progress Note ---
Date of Encounter: 08/19/17 Time of Encounter: 16:41 - Assessment and plan (1) NSTEMI (non-ST elevated myocardial infarction) Current Visit: Yes Status: Acute (2) Subdural hematoma Current Visit: Yes Status: Acute (3) Alcohol abuse Current Visit: Yes Status: Chronic (4) Tobacco abuse Current Visit: Yes Status: Chronic (5) Hyperlipidemia Current Visit: Yes Status: Chronic Qualifiers: Hyperlipidemia type: unspecified Qualified Code(s): E78.5 - Hyperlipidemia , unspecified - Subjective Interval history: Mr. Matthieu Arriaza is a 62-year-old male with history of hypertension dyslipidemia and coronary artery disease a status post stent. Unfortunately he regularly smokes and drinks. He came to be a yesterday with chest pain and was diagnosed with non-STEMI with his creatinine continuously mounting up. To complicate the matter more he had an accidental fall 6 weeks ago when he sustained subdural hematoma. Repeat CT head showed chronic hematoma which is organized. Neurology was consulted. Patient was decided to be started on IV heparin while cardiology is planning for cardiac catheter today. His lab reviewed and he was discussed in PCR rounds. His hemoglobin and electrolytes as well as renal function is stable. Troponin mount to 5.9. He is already on IV heparin. He is also taking aspirin Plavix Coreg Lipitor. I will let thiamine multivitamin and folic acid as well as low-dose Ativan. If he goes in DTs. Transferred to [facility] under [facility] protocol. Consult provided. Unfortunately patient is not willing to quit his smoking or alcohol. - Constitutional Vitals: Temp Pulse Resp BP Pulse Ox 97.9 F 86 16 132/95 97 08/19/17 16:00 08/19/17 16:00 08/19/17 16:00 08/19/17 16:00 08/19/17 16:00 General appearance: Present: cooperative, A&O X 3, pleasant, no acute distress, answers questions appropriately - Head Head exam: Present: atraumatic, normocephalic - Eye Eye exam: Present: PERRL, conjuntiva pink, sclera anicteric Pupils: Present: PERRL - Neck Neck exam general surgery: Present: supple, trachea midline. Absent: lymphadenopathy - Respiratory Respiratory exam: Present: CTAB. Absent: accessory muscle use, rales, rhonchi, wheezes - Cardiovascular Cardiovascular exam: Present: RRR, +S1, +S2. Absent: diastolic murmur, gallop, rubs, systolic murmur - GI/Abdominal GI/Abdominal exam: Present: normal bowel sounds, soft, no peritoneal signs. Absent: distended, tenderness - Extremities Exam Extremities exam: Present: warm, radial pulses palpable and symmetrical. Absent : calf tenderness, cyanotic, pedal edema - Neurological Exam Neurological exam: Present: CN II-XII intact, oriented X3, no focal deficits. Absent: pronater drift, facial droop, speech deficit - Skin Skin exam: Present: dry, intact Internal Medicine: Result - Labs CBC & Chem 7: 08/19/17 02:40 08/19/17 02:40 Labs: Short CBC 08/19/17 Range/Units 02:40 WBC 6.3 (4.3-11.1) K/mcL Hgb 13.7 D (12.9-16.9) g/dL Hct 41.1 (37.5-50.1) % Plt Count 292 (140-400) K/mcL Neutrophils # 3.8 (1.6-8.9) K/mcL BMP 08/19/17 02:40 Sodium 138 Potassium 3.6 Chloride 106 Carbon Dioxide 21 BUN 9 Creatinine 0.96 Glucose 113 H Calcium 8.6 Cardiac Enzymes 08/18/17 08/19/17 08/19/17 Range/Units 20:24 02:40 08:30 Troponin I 0.92 H* 2.98 H* 5.94 H* (0-0.03) ng/mL Urine 08/19/17 Range/Units 03:30 Urine Color Yellow (Yellow) Urine Clarity Clear (Clear) Urine pH 6.0 (5.0-8.0) pH Units Ur Specific [place] 1.010 (1.010-1.025) Urine Protein Negative (Neg-Trace) mg/dL Urine Glucose (UA) Normal (Normal) mg/dL - ABG Interpretation ABG results: PT/INR, D-dimer PT 11.1 Seconds (9.4-12.1) 08/19/17 02:40 - Impressions Impressions Echocardiogram 08/19/17 09:00 Impressions: LVEF 35%. Mildly dilated left ventricle. Left ventricular systolic dysfunction (LAD distribution). Indeterminate diastolic function. Normal right ventricular structure and function. Unable to estimate RVSP due to lack of TR jet. No significant valvular dysfunction. Wall motion abnormalities similar to prior test results. Cardiology service aware. Spoke with Pao Fletcher CNP. Left Ventricular Wall Motion: Rest Echo Findings The apex, apical inferior, apical anterior and apical lateral booth were hypokinetic. The apical septal, mid inferior septal and mid anterior septal booth were akinetic. All other wall segments showed normal motion. Findings: Study Quality * Technically adequate exam. ECG Findings * Normal sinus rhythm. Left Ventricle * LVEF 35%. * Mildly dilated left ventricle. * Left ventricular systolic dysfunction (LAD distribution). * Indeterminate diastolic function. Right Ventricle * Normal right ventricular structure and function. Left Atrium * Mild to moderately dilated left atrium. Right Atrium * Normal right atrial size. Interatrial Septum * No evidence of PFO by color Doppler. Aortic Valve * Trileaflet aortic valve with normal function. * No aortic regurgitation. * No aortic stenosis. Mitral Valve * Normal mitral valve structure and function. * No mitral stenosis. * Trace mitral regurgitation. Tricuspid Valve * Normal tricuspid valve structure and function. * No tricuspid regurgitation. * Unable to estimate RVSP due to lack of TR jet. Pulmonic Valve * Normal pulmonic valve structure and function. * No pulmonic regurgitation. Aorta * Normally sized aortic root. Pericardium * The pericardium appears normal. IVC * Normal IVC dimensions and inspiratory collapse. Pulmonary Artery * Normal visualized portions of the main pulmonary artery. Head CT 08/19/17 10:21 IMPRESSION: 1. Expected evolution of the left subdural hematoma, now with a subacute to chronic appearance. No acute intracranial abnormality. 2. Periventricular and subcortical white matter hypodensities are commonly due to chronic small vessel ischemic change. D/ / Carson Lozoya MD / Carson Lozoya MD Interpreting Provider: Carson Lozoya MD Consult Discharge Plan - Plan Referrals: NONE,PCP [Primary Care Provider] -
[2017-08-19] MEDS ORDERED: Folic Acid 1 MG TABLET PO SCH (18:00)
--- NOTE | 2017-08-19 18:10 | Electrocardiograph Report ---
[place] [id number] Test Date: 2017-08-18 Pat Name: Matthieu Arriaza Department: 112 Room: 2N10 Gender: Clerk Operator: CHRIS : 1955 Requested By: Abdullahi Suazo Order Number: [id number] Reading MD: Lala Steel Measurements Intervals [place] Rate: 89 P: 13 [place]: 145 QRS: -17 QRSD: 86 T: 28 QT: 380 QTc: 427 Interpretive Statements SINUS RHYTHM INFERIOR MYOCARDIAL INFARCTION, OF INDETERMINATE AGE ANTEROSEPTAL MYOCARDIAL INFARCTION, OF INDETERMINATE AGE Electronically Signed On 08-19-2017 18:08:57 EDT by Lala Steel
--- NOTE | 2017-08-19 18:12 | Electrocardiograph Report ---
[place] [id number] Test Date: 2017-08-19 Pat Name: Matthieu Arriaza Department: 112 Room: 2N10 Gender: M Alternative Education Teacher: [facility] : 1955 Requested By: Abdullahi Suazo Order Number: [id number] Reading MD: Lala Steel Measurements Intervals [place] Rate: 97 P: 29 [place]: 134 QRS: -5 QRSD: 86 T: -64 QT: 372 QTc: 426 Interpretive Statements SINUS RHYTHM INFERIOR MYOCARDIAL INFARCTION, OF INDETERMINATE AGE ANTEROSEPTAL MYOCARDIAL INFARCTION, OF INDETERMINATE AGE Electronically Signed On 08-19-2017 18:10:51 EDT by Lala Steel
[2017-08-19] MEDS ORDERED: *HR* Atropine Sulfate 1 MG/10 ML SYRINGE ONE (20:36)
[2017-08-19] MEDS: Famotidine 20 MG TABLET PO SCH (21:44)
[2017-08-20 02:47] LABS: Basophils # 0.1 K/mcL (0.0-0.2); Basophils % 0.8 %; Eosinophils # 0.1 K/mcL (0.0-0.6); Eosinophils % 1.6 %; Hematocrit 41.3 % (37.5-50.1); Hemoglobin 13.6 g/dL (12.9-16.9); Immature Granulocytes % 0.2 % (0-4); Lymphocytes # 1.3 K/mcL (0.6-4.6); Lymphocytes % 20.6 %; Mean Corpuscular HGB Conc 32.9 g/dL (31.6-35.5); Mean Corpuscular Hemoglobin 33.1 pg (28.0-33.3); Mean Corpuscular Volume 100.5 fL (83.0-100.0); Mean Platelet Volume 9.5 fL (9.4-12.4); Monocytes # 0.8 K/mcL (0.0-1.3); Monocytes % 11.9 %; Neutrophils # 4.2 K/mcL (1.6-8.9); Platelet Count 269 K/mcL (140-400); Red Blood Count 4.11 M/mcL (4.19-5.50); Red Cell Distribution Width 13.6 % (11.5-14.5); Segmented Neutrophils % 64.9 %
[2017-08-20 02:59] LABS: BUN/Creatinine Ratio 10 (6-26); Blood Urea Nitrogen 8 mg/dL (8-26); Calcium 8.1 mg/dL (8.6-10.8); Carbon Dioxide 22 mEq/L (19-29); Chloride 107 mEq/L (98-109); Glucose 95 mg/dL (70-99); Osmolality,Calculated 280 (280-300); Potassium 3.8 mEq/L (3.5-4.5); Sodium 136 mEq/L (136-145); eGFR For African Americans > 60 (> 60); eGFR For Non-African Americans > 60 (> 60)
[2017-08-20] MEDS: Multivit/Ca/Min/Fe/FA 1 TAB TABLET PO SCH (08:14)
[2017-08-20] MEDS: FLUoxetine HCl 10 MG CAPSULE PO SCH (08:14)
[2017-08-20] MEDS: Aspirin 81 MG TAB.CHEW PO SCH (08:15)
[2017-08-20] MEDS: Famotidine 20 MG TABLET PO SCH (08:15)
--- NOTE | 2017-08-20 10:21 | Cardiology Progress Note ---
Date of Encounter: 08/20/17 Time of Encounter: 09:00 Assessment and Plan (1) NSTEMI (non-ST elevated myocardial infarction) Current Visit: Yes Status: Acute Per cardiology: -NSTEMI on presentation. Peak troponin 5.94. -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 -On asa, statin, beta andrea, and plavix. -Patient educated on dual anti-platelet therapy uninterrupted for at least one year. Patient states understanding. -Denies chest pain overnight. -Right groin access site education given to patient. Patient states understanding. -Cardiology will sign off and will follow in outpatient setting. Follow up set. Patient educated on importance of cardiology follow up. (2) Tobacco abuse Current Visit: Yes Status: Chronic Per cardiology: -Patient states that he has smoked about about a PPD for the past 50 year. -I spent 3 minutes reviewing smoking cessation education with patient. Discussion w patient/family: The assessment and plan as outlined above was discussed with the patient who expressed understanding and agreement. All questions were answered. Thank you for involving us in the care of your patient. Please call with any questions. Discussed and reviewed with . Subjective Principal diagnosis: NSTEMI Interval history: Patient states he feels great this morning. Denies chest pain. Denies issues walking or using right leg. Objective Vital Signs, Last 4 Hours Temp Pulse Resp BP Pulse Ox 08/20/17 08:14 97.8 F 86 18 127/84 97 General: Conversant, No Apparent Distress HEENT: Atraumatic, Normocephaly, Mucus Membranes Moist Neck: No JVD, Normal carotid pulses Cardiac: Reg Rate and Rhythm, Normal S1 and S2, No Murmur Lungs: Normal Breath Sounds, No Wheeze, Rales, Rhonchi Neuro: Alert and responsive, No focal deficits noted Abdomen: Soft, Non-Tender Skin: No rashes noted on visualized skin, Other (Right groin access site without hematoma or ecchymosis. ) Musculoskeletal: No Chest Wall Tenderness Extremities: No Clubbing, No Cyanosis, No Edema, Normal Pulses Results 08/20/17 02:41 08/20/17 02:41 Lab Results Impressions Head CT 08/19/17 10:21 IMPRESSION: 1. Expected evolution of the left subdural hematoma, now with a subacute to chronic appearance. No acute intracranial abnormality. 2. Periventricular and subcortical white matter hypodensities are commonly due to chronic small vessel ischemic change. D/ / Carson Lozoya MD / Carson Lozoya MD Interpreting Provider: Carson Lozoya MD Active Medications Acetaminophen (Tylenol) 650 mg PO Q6HR PRN PRN Reason: Mild Pain (1-3) Stop: 02/17/18 19:33 Hydrocodone Bitart/Acetaminophen ([place] 5-325 Mg) 1 tab PO Q6HR PRN PRN Reason: Moderate to Severe Pain (4-10) Stop: 02/18/18 12:00 Last Admin: 08/19/17 21:45 Dose: 1 tab Aspirin (Aspirin) 81 mg PO DAILY [facility] Stop: 02/18/18 09:01 Last Admin: 08/20/17 08:15 Dose: 81 mg Atorvastatin Calcium (Lipitor) 40 mg PO HS [facility] Stop: 02/17/18 21:01 Last Admin: 08/19/17 21:44 Dose: 40 mg Carvedilol (Coreg) 6.25 mg PO BIDWM [facility]ADI PRN Reason: Protocol Stop: 02/18/18 08:01 Last Admin: 08/20/17 08:14 Dose: 6.25 mg Clopidogrel Bisulfate (Plavix) 75 mg PO DAILY [facility] Stop: 02/17/18 19:46 Last Admin: 08/20/17 08:14 Dose: 75 mg Famotidine (Pepcid) 20 mg PO 0730,1630 FADI PRN Reason: Protocol Stop: 02/18/18 16:31 Last Admin: 08/20/17 08:15 Dose: 20 mg Fluoxetine HCl (Prozac) 10 mg PO DAILY [facility] Stop: 02/18/18 09:01 Last Admin: 08/20/17 08:14 Dose: 10 mg Folic Acid (Folic Acid) 1 mg PO Q24H [facility] Stop: 02/18/18 18:01 Last Admin: 08/19/17 21:45 Dose: 1 mg Lorazepam (Ativan) 1 mg PO TID PRN PRN Reason: Anxiety Stop: 02/18/18 12:01 Multivitamins/Calcium (Thera M Plus) 1 tab PO DAILY FADI PRN Reason: Protocol Stop: 02/18/18 09:01 Last Admin: 08/20/17 08:14 Dose: 1 tab Naloxone HCl (Narcan) 0.4 mg IVP Q2MIN PRN PRN Reason: Opioid Reversal Stop: 02/17/18 19:33 Nitroglycerin (Nitroglycerin) 0.4 mg SL Q5MIN PRN PRN Reason: Chest Pain Stop: 02/17/18 21:53 Ondansetron HCl (Zofran) 4 mg IVP Q8HR PRN PRN Reason: Nausea And Vomiting Stop: 02/17/18 19:33 Last Admin: 08/19/17 06:28 Dose: 4 mg Thiamine HCl (Vitamin B-1) 100 mg PO Q24H [facility] Stop: 02/18/18 18:01 Last Admin: 08/19/17 21:44 Dose: 100 mg Laboratory Tests 08/20/17 08/20/17 02:41 02:41 Hgb 13.6 Creatinine 0.84 - Imaging and Cardiology Chest Xray: report reviewed Cardiac cath: report reviewed - EKG Interpretation EKG results cardiology: other (Telemetry reviewed with average HR 85, sinus rhythm. PVCs and PACs noted.) Consult Discharge Plan - Plan Referrals: NONE,PCP [Primary Care Provider] -
[2017-08-20 11:31] VITALS: BP 115/83
--- NOTE | 2017-08-20 13:51 | Discharge Summary ---
Date of Encounter: 08/20/17 Time of Encounter: 13:44 - Discharge Diagnosis (1) NSTEMI (non-ST elevated myocardial infarction) Priority: Primary Status: Acute (2) Subdural hematoma Priority: Secondary Status: Acute (3) Alcohol abuse Priority: Secondary Status: Chronic (4) Tobacco abuse Priority: Secondary Status: Chronic (5) Hyperlipidemia Priority: Secondary Status: Chronic Qualifiers: Hyperlipidemia type: unspecified Qualified Code(s): E78.5 - Hyperlipidemia , unspecified - Discharge Medications Prescriptions: Nitroglycerin 0.4 mg SL Q5MIN PRN #40 tab.subl PRN Reason: Chest Pain Atorvastatin [Lipitor] 40 mg PO HS #30 tablet Carvedilol [Coreg] 12.5 mg PO BIDWM #60 tablet Clopidogrel [Plavix] 75 mg PO DAILY #30 tablet FLUoxetine HCl [Fluoxetine HCl] 10 mg PO DAILY #30 capsule Lisinopril [Zestril] 5 mg PO DAILY #30 tablet Home Medications: Acetaminophen [Tylenol] 650 mg PO Q6HR PRN tablet 08/20/17 [Rx] Aspirin 81 mg PO DAILY tab.chew 08/20/17 [Rx] Atorvastatin [Lipitor] 40 mg PO HS #30 tablet 08/20/17 [Rx] Carvedilol [Coreg] 12.5 mg PO BIDWM #60 tablet 08/20/17 [Rx] Clopidogrel [Plavix] 75 mg PO DAILY #30 tablet 08/20/17 [Rx] FLUoxetine HCl [Fluoxetine HCl] 10 mg PO DAILY #30 capsule 08/20/17 [Rx] Folic Acid 1 mg PO Q24H tablet 08/20/17 [Rx] Lisinopril [Zestril] 5 mg PO DAILY #30 tablet 08/20/17 [Rx] Multivit/Ca/Min/Fe/FA [Thera M Plus] 1 tab PO DAILY tablet 08/20/17 [Rx] Nitroglycerin 0.4 mg SL Q5MIN PRN #40 tab.subl 08/20/17 [Rx] Thiamine (B-1) [Vitamin B-1] 100 mg PO Q24H tablet 08/20/17 [Rx] Allergies/Adverse Reactions: 3 Allergy/AdvReac Type Severity Reaction Status Date / Time No Known Allergies Allergy Verified 07/07/17 09:48 Procedures/tests Complete & Pending: Procedures Performed prior 72 hours Category Date Time Status CT head/brain wo con [CT] Stat Cat Scan 08/19/17 10:21 Completed CL Cardiac Catheterization [CL] Routine Opal Miner 08/19/17 10:12 Completed ECG 12 lead ECG [ECG] AM 0600 Y 08/19/17 06:00 Ordered ECG 12 lead ECG [ECG] Stat Y 08/18/17 19:32 Completed EKG [ECG 12 lead ECG] [ECG] Stat Y 08/19/17 03:21 Completed EV echocardiogram Routine Y 08/19/17 09:00 Completed Date of admission: 08/18/17 19:32 Primary care physician: PCP HERLINDA Consults: 08/18/17 20:49 Consult to Cardiology [CONS] Routine Comment: Consulting Provider: Cardiology Cecelia Reason for Consult: chest pain, elevated troponin Call Completed: No 08/19/17 03:25 Consult to Neurology [CONS] Routine Consulting Provider: [facility] Reason for Consult: recent subdural hematoma Call Completed: Yes 08/19/17 15:16 Consult to Cardiac Rehabilitation-Phase1 [CONS] Routine Comment: Reason for Consult: post op cath Call Completed: Yes Discharging clinician: Alanis Alcantara Anticipated date of discharge: 08/20/17 - Patient Status Disposition: Home, Self-Care Condition: Fair Overall status at discharge: patient is progressing back to baseline - Discharge Instructions Follow Up With: NONE,PCP [Primary Care Provider] - - Diet and Activity Activity: resume usual activities as tolerated Diet: advance to your usual diet, low fat, low cholesterol, low salt diet Hospital course: Mr. Matthieu Arriaza is a 62-year-old male with history of hypertension dyslipidemia and coronary artery disease and status post stent. Unfortunately he regularly smokes and drinks. He came to be a yesterday with chest pain and was diagnosed with non-STEMI . To complicate the matter more he had an accidental fall 6 weeks ago when he sustained subdural hematoma. Repeat CT head showed chronic hematoma which is organized. Neurology was consulted. Patient was decided to be started on IV heparin while cardiology proceeded with cardiac catheter and placed a stent. 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 Patient will be discharged home on Coreg and aspirin Plavix lisinopril. Strongly recommended not to smoke or drink. Patient suggested to use nicotine patch which are available [id number]. He is aware of outpatient alcohol rehabilitation and encouraged to contact. Nursing staff asked to make an appointment with cardiology and [facility]. - Time Spent with Patient Total time spent providing and/or coordinating discharge services: Greater than 30 minutes - Constitutional Vitals: Temp Pulse Resp BP Pulse Ox 97.7 F 81 16 115/83 99 08/20/17 11:23 08/20/17 11:38 08/20/17 11:38 08/20/17 11:38 08/20/17 11:38 General appearance: Present: cooperative, A&O X 3, pleasant, no acute distress, answers questions appropriately - Head Head exam: Present: atraumatic, normocephalic - Eye Eye exam: Present: PERRL, conjuntiva pink, sclera anicteric Pupils: Present: PERRL - Neck Neck exam general surgery: Present: supple, trachea midline. Absent: lymphadenopathy - Respiratory Respiratory exam: Present: CTAB. Absent: accessory muscle use, rales, rhonchi, wheezes - Cardiovascular Cardiovascular exam: Present: RRR, +S1, +S2. Absent: diastolic murmur, gallop, rubs, systolic murmur - GI/Abdominal GI/Abdominal exam: Present: normal bowel sounds, soft, no peritoneal signs. Absent: distended, tenderness - Extremities Exam Extremities exam: Present: warm, radial pulses palpable and symmetrical. Absent : calf tenderness, cyanotic, pedal edema - Neurological Exam Neurological exam: Present: CN II-XII intact, oriented X3, no focal deficits. Absent: pronater drift, facial droop, speech deficit - Skin Skin exam: Present: dry, intact
== END 2017-08-20 14:42 | disposition home or self-care (01) | DRG 247 ==
LOC: 2ANU → 2NNU 08-19 15:18
PROVIDERS: ADMIT Internal Medicine; ATTEND Internal Medicine

== ENCOUNTER 2018-08-10 21:21 | Observation (INO) ==
[2018-08-10 21:59] LABS: Basophils # 0.1 K/mcL (0.0-0.2); Eosinophils # 0.1 K/mcL (0.0-0.6); Eosinophils % 1.8 %; Hematocrit 39.5 % (37.5-50.1); Hemoglobin 13.7 g/dL (12.9-16.9); Immature Granulocytes % 0.2 % (0-4); Lymphocytes # 1.8 K/mcL (0.6-4.6); Lymphocytes % 36.5 %; Mean Corpuscular HGB Conc 34.7 g/dL (31.6-35.5); Mean Corpuscular Hemoglobin 33.7 pg (28.0-33.3); Mean Corpuscular Volume 97.3 fL (83.0-100.0); Mean Platelet Volume 9.4 fL (9.4-12.4); Monocytes # 0.5 K/mcL (0.0-1.3); Monocytes % 10.6 %; Neutrophils # 2.5 K/mcL (1.6-8.9); Platelet Count 195 K/mcL (140-400); Red Blood Count 4.06 M/mcL (4.19-5.50); Red Cell Distribution Width 14.4 % (11.5-14.5); Segmented Neutrophils % 49.9 %
[2018-08-10 22:04] LABS: INR 0.9; Prothrombin Time 10.3 Seconds (9.4-12.1)
[2018-08-10 22:07] LABS: Activated Partial Thrombo Time 27.6 Seconds (26.0-36.0)
[2018-08-10 22:17] LABS: BUN/Creatinine Ratio 10 (6-26); Blood Urea Nitrogen 9 mg/dL (8-23); Calcium 8.3 mg/dL (8.6-10.3); Carbon Dioxide 23 mEq/L (23-29); Chloride 107 mEq/L (98-107); Glucose 104 mg/dL (70-105); Osmolality,Calculated 285 (280-300); Potassium 3.7 mEq/L (3.5-5.1); Sodium 138 mEq/L (136-145); eGFR For Non-African Americans > 60 (> 60)
--- NOTE | 2018-08-10 22:22 | Emergency Department Note ---
Disposition Clinical Impression: Unstable angina Disposition: Admitted As Inpatient Condition: Good [facility]errals: [facility] [Primary Care Provider] - Forms: ED Satisfaction Letter General Adult HPI - General Chief complaint: ED Chest Pain Stated complaint: cp harika Time Seen by Provider: 08/10/18 21:24 Source: patient, family, EMS Mode of arrival: EMS Limitations: no limitations Nursing Notes Reviewed: Yes Vital Signs Reviewed: Yes - History of Present Illness HPI Narrative: 63-year-old male with significant past medical history of coronary artery disease and hypertension presenting to the emergency department chief complaint of chest pain. Patient states for the past week he has had intermittent substernal chest pain and pressure that takes his breath away. Denies nausea, vomiting or diaphoresis. Patient states approximately one year ago he had a stent placed. Currently on Plavix. Patient states when he has the pressure in his chest that takes his breath away and make him feel weak. Has been feeling weak for the past week. Patient called EMS today when he was having crushing substernal chest pain. They provided him with 4 nitroglycerin, morphine and Zofran and the pain was resolved. Patient chest pain-free at this time. Pain Scale: 0 - Related Data Previous Rx's Medication Instructions Recorded Acetaminophen [Tylenol] 650 mg PO Q6HR PRN tablet 08/20/17 Aspirin 81 mg PO DAILY tab.chew 08/20/17 Atorvastatin [Lipitor] 40 mg PO HS #30 tablet 08/20/17 Carvedilol [Coreg] 12.5 mg PO BIDWM #60 tablet 08/20/17 Clopidogrel [Plavix] 75 mg PO DAILY #30 tablet 08/20/17 FLUoxetine HCl [Fluoxetine HCl] 10 mg PO DAILY #30 capsule 08/20/17 Folic Acid 1 mg PO Q24H tablet 08/20/17 Lisinopril [Zestril] 5 mg PO DAILY #30 tablet 08/20/17 Multivit/Ca/Min/Fe/FA [Thera M 1 tab PO DAILY tablet 08/20/17 Plus] Nitroglycerin 0.4 mg SL Q5MIN PRN #40 tab.subl 08/20/17 Thiamine (B-1) [Vitamin B-1] 100 mg PO Q24H tablet 08/20/17 Allergies Allergy/AdvReac Type Severity Reaction Status Date / Time No Known Allergies Allergy Verified 07/07/17 09:48 All systems ED: reviewed and negative except as stated. Constitutional: Reports: weakness. Denies: fever, chills Eyes: Reports: as per HPI ENT ED: Reports: as per HPI Cardiovascular: Reports: chest pain. Denies: palpitations Respiratory: Reports: dyspnea. Denies: wheezes, hemoptysis Gastrointestinal: Denies: abdominal pain, nausea, vomiting Genitourinary: Reports: as per HPI Musculoskeletal: Reports: as per HPI Integumentary: Reports: as per HPI Neurological: Denies: numbness, paresthesias Psychiatric: Reports: as per HPI Endocrine: Reports: as per HPI Hematological/Lymphatic: Reports: as per HPI Allergic/Immunologic: Reports: as per HPI Past Medical History - Past Medical History Attestation: Yes The following information was validated with the patient. Medical history: Reports: CVA, hyperlipidemia, hypertension, myocardial infarction Surgical history: Reports: angioplasty/stent Psychiatric history: Reports: depression - Social History Smoking Status: Current every day smoker Smokeless Tobacco Status: No Alcohol use: Reports: heavy, recent Drug use: Reports: none Physical Exam - General Limitations: other General appearance: alert, in no apparent distress - Head Head exam: atraumatic, normocephalic, normal inspection - Eye Eye exam: Present: normal appearance. Absent: scleral icterus, conjunctival injection - ENT ENT exam: normal exam, mucous membranes moist - Neck Neck exam: Present: normal inspection, full ROM. Absent: tenderness, meningismus - Chest Chest inspection: Present: normal inspection, symmetric chest wall rise. Absent : tenderness, rash - Respiratory Respiratory exam: Present: normal lung sounds bilaterally. Absent: respiratory distress, wheezes - Cardiovascular Cardiovascular exam: Present: regular rate, normal rhythm, normal heart sounds - Abdominal Exam Abdominal exam: Present: soft, Non-Tender. Absent: distention, guarding, rebound - Extremities Exam Extremities exam: Present: normal inspection, full ROM - Neurological Exam Neurological exam: Present: alert, oriented X3 - Psychiatric Psychiatric exam: Present: normal affect, normal mood - Skin Skin exam: Present: warm, intact Course Course Narrative: 63-year-old male presenting for chest pain. Has history of coronary artery disease and recent stent. Patient has not had workup in approximately one year. Patient chest pain-free at this time. He is alert and oriented 3 in room with stable vital signs. We will perform chest pain rule out. Due to patient's risk factors patient will most likely be admitted. Pending results. Patient agrees with this plan. - Reevaluation(s) Reevaluation #1: Patient laboratory analysis benign. EKG does showed J point elevation in V1 and V2 but this is unchanged from previous. Patient remains chest pain-free. He is alert and oriented 3 in the room with stable vital signs. We will plan to admit the patient for further chest pain evaluation. I spoke with the hospitalist front end application developer Dr. Mills who is concerned that the patient has unstable angina and would like us to provide him with one dose of Lovenox in the emergency department. Patient agrees to admission. Vital Signs Temperature 98.4 F 08/10/18 21:30 Pulse Rate 97 08/10/18 21:30 Respiratory Rate 24 08/10/18 21:30 Blood Pressure 125/90 08/10/18 21:30 O2 Sat by Pulse Oximetry 100 08/10/18 21:30 Temperature 98.4 F 08/10/18 21:30 Pulse Rate 78 08/10/18 22:35 Respiratory Rate 22 08/10/18 22:35 Blood Pressure 136/88 08/10/18 22:35 O2 Sat by Pulse Oximetry 98 08/10/18 22:35 Oxygen Delivery Oxygen Delivery Room Air Medical Decision Making - Lab Data Result diagrams: 08/10/18 21:42 08/10/18 21:42 Lab Results 08/10/18 08/10/18 08/10/18 Range/Units 21:42 21:42 21:42 WBC 5.0 (4.3-11.1) K/mcL RBC 4.06 L (4.19-5.50) M/mcL Hgb 13.7 (12.9-16.9) g/dL Hct 39.5 (37.5-50.1) % MCV 97.3 (83.0-100.0) fL MCH 33.7 H (28.0-33.3) pg MCHC 34.7 (31.6-35.5) g/dL RDW 14.4 (11.5-14.5) % Plt Count 195 (140-400) K/mcL MPV 9.4 (9.4-12.4) fL Immature Gran % 0.2 (0-4) % Seg Neutrophils % 49.9 % Lymphocytes % 36.5 % Monocytes % 10.6 % Eosinophils % 1.8 % Basophils % 1.0 % Neutrophils # 2.5 (1.6-8.9) K/mcL Lymphocytes # 1.8 (0.6-4.6) K/mcL Monocytes # 0.5 (0.0-1.3) K/mcL Eosinophils # 0.1 (0.0-0.6) K/mcL Basophils # 0.1 (0.0-0.2) K/mcL PT 10.3 (9.4-12.1) Seconds INR 0.9 APTT 27.6 (26.0-36.0) Seconds Sodium 138 (136-145) mEq/L Potassium 3.7 (3.5-5.1) mEq/L Chloride 107 (98-107) mEq/L Carbon Dioxide 23 (23-29) mEq/L BUN 9 (8-23) mg/dL Creatinine 0.92 (0.70-1.30) mg/dL Est GFR ( Amer) > 60 (> 60) Est GFR (Non-Af Amer) > 60 (> 60) BUN/Creatinine Ratio 10 (6-26) Glucose 104 (70-105) mg/dL Calculated Osmolality 285 (280-300) Calcium 8.3 L (8.6-10.3) mg/dL Troponin I < 0.03 (< 0.04) ng/mL - EKG Data EKG #1 EKG attestation: Yes I reviewed and interpreted this EKG. EKG results narrative: Sinus rhythm. 89 beats for minute. J-point elevation in V1, V2 and V3.. No other signs of acute ischemia. Compared to previous EKG completed on 2016 no significant changes noted.
[2018-08-10 22:50] LABS: Troponin I < 0.03 ng/mL (< 0.04)
--- NOTE | 2018-08-10 22:54 | Emergency Department Note ---
Disposition Clinical Impression: Unstable angina Disposition: Admitted As Inpatient Condition: Good [facility]errals: [facility] [Primary Care Provider] - Forms: ED Satisfaction Letter General Adult HPI - General Chief complaint: ED Chest Pain Stated complaint: cp harika Time Seen by Provider: 08/10/18 21:24 Source: patient, family, EMS Mode of arrival: EMS Limitations: other - History of Present Illness Pain Scale: 0 - Related Data Previous Rx's Medication Instructions Recorded Acetaminophen [Tylenol] 650 mg PO Q6HR PRN tablet 08/20/17 Aspirin 81 mg PO DAILY tab.chew 08/20/17 Atorvastatin [Lipitor] 40 mg PO HS #30 tablet 08/20/17 Carvedilol [Coreg] 12.5 mg PO BIDWM #60 tablet 08/20/17 Clopidogrel [Plavix] 75 mg PO DAILY #30 tablet 08/20/17 FLUoxetine HCl [Fluoxetine HCl] 10 mg PO DAILY #30 capsule 08/20/17 Folic Acid 1 mg PO Q24H tablet 08/20/17 Lisinopril [Zestril] 5 mg PO DAILY #30 tablet 08/20/17 Multivit/Ca/Min/Fe/FA [Thera M 1 tab PO DAILY tablet 08/20/17 Plus] Nitroglycerin 0.4 mg SL Q5MIN PRN #40 tab.subl 08/20/17 Thiamine (B-1) [Vitamin B-1] 100 mg PO Q24H tablet 08/20/17 Allergies Allergy/AdvReac Type Severity Reaction Status Date / Time No Known Allergies Allergy Verified 07/07/17 09:48 Constitutional: Reports: weakness. Denies: fever, chills Eyes: Reports: as per HPI ENT ED: Reports: as per HPI Cardiovascular: Reports: chest pain. Denies: palpitations Respiratory: Reports: dyspnea. Denies: wheezes, hemoptysis Gastrointestinal: Denies: abdominal pain, nausea, vomiting Genitourinary: Reports: as per HPI Musculoskeletal: Reports: as per HPI Integumentary: Reports: as per HPI Neurological: Denies: numbness, paresthesias Psychiatric: Reports: as per HPI Endocrine: Reports: as per HPI Hematological/Lymphatic: Reports: as per HPI Allergic/Immunologic: Reports: as per HPI Past Medical History - Past Medical History Medical history: Reports: CVA, hyperlipidemia, hypertension, myocardial infarction Surgical history: Reports: angioplasty/stent Psychiatric history: Reports: depression - Social History Smoking Status: Current every day smoker Smokeless Tobacco Status: No Alcohol use: Reports: heavy, recent Drug use: Reports: none Physical Exam - General Limitations: other General appearance: alert, in no apparent distress Course Vital Signs Temperature 98.4 F 08/10/18 21:30 Pulse Rate 97 08/10/18 21:30 Respiratory Rate 24 08/10/18 21:30 Blood Pressure 125/90 08/10/18 21:30 O2 Sat by Pulse Oximetry 100 08/10/18 21:30 Temperature 98.4 F 08/10/18 21:30 Pulse Rate 77 08/10/18 23:18 Respiratory Rate 20 08/10/18 23:18 Blood Pressure 139/95 08/10/18 23:18 O2 Sat by Pulse Oximetry 97 08/10/18 23:18 Oxygen Delivery Oxygen Delivery Room Air Medical Decision Making - Lab Data Result diagrams: 08/10/18 21:42 08/10/18 21:42 Lab Results 08/10/18 08/10/18 08/10/18 Range/Units 21:42 21:42 21:42 WBC 5.0 (4.3-11.1) K/mcL RBC 4.06 L (4.19-5.50) M/mcL Hgb 13.7 (12.9-16.9) g/dL Hct 39.5 (37.5-50.1) % MCV 97.3 (83.0-100.0) fL MCH 33.7 H (28.0-33.3) pg MCHC 34.7 (31.6-35.5) g/dL RDW 14.4 (11.5-14.5) % Plt Count 195 (140-400) K/mcL MPV 9.4 (9.4-12.4) fL Immature Gran % 0.2 (0-4) % Seg Neutrophils % 49.9 % Lymphocytes % 36.5 % Monocytes % 10.6 % Eosinophils % 1.8 % Basophils % 1.0 % Neutrophils # 2.5 (1.6-8.9) K/mcL Lymphocytes # 1.8 (0.6-4.6) K/mcL Monocytes # 0.5 (0.0-1.3) K/mcL Eosinophils # 0.1 (0.0-0.6) K/mcL Basophils # 0.1 (0.0-0.2) K/mcL PT 10.3 (9.4-12.1) Seconds INR 0.9 APTT 27.6 (26.0-36.0) Seconds Sodium 138 (136-145) mEq/L Potassium 3.7 (3.5-5.1) mEq/L Chloride 107 (98-107) mEq/L Carbon Dioxide 23 (23-29) mEq/L BUN 9 (8-23) mg/dL Creatinine 0.92 (0.70-1.30) mg/dL Est GFR ( Amer) > 60 (> 60) Est GFR (Non-Af Amer) > 60 (> 60) BUN/Creatinine Ratio 10 (6-26) Glucose 104 (70-105) mg/dL Calculated Osmolality 285 (280-300) Calcium 8.3 L (8.6-10.3) mg/dL Troponin I < 0.03 (< 0.04) ng/mL Attestation Statement - Attestation Attestation: I examined this patient and my medical decision-making was reviewed with the Resident Physician. I agree with the documented findings, disposition and treatment plan as described except to the extent set forth below. 63-year-old male in presented to the emergency room for chest pain. Intermittent times one week. Worse tonight. EKG is not normal however there is findings on the EKG that are unchanged from her previous EKG. The concern today was possible ST elevation in the septal leads however there is no reciprocal changes and I feel like there is a slight J-point present. The previous EKG also suffers the same morphology in all leads. And the fact that he is not having active chest pain and do not feel that this is an acute ME. His troponin came back negative. We will admit the patient if he will be willing to for observation for ACS rule out. hosptialist preferred lovenox so it was given at their request.
[2018-08-10] MEDS ORDERED: *HR* Enoxaparin 100 MG/ML SYRINGE SQ STA (23:10)
[2018-08-10] MEDS ORDERED: Acetaminophen 325 MG TABLET PO ONE (23:30)
[2018-08-11] MEDS ORDERED: Naloxone 0.4 MG/ML INJ IVP PRN (02:03)
[2018-08-11] MEDS ORDERED: Nitroglycerin 0.4 MG TAB.SUBL SL PRN (02:10)
[2018-08-11] MEDS ORDERED: *HR* Morphine 2 MG/ML SYRINGE IVP PRN (02:10)
[2018-08-11] MEDS ORDERED: 0.9 % Sodium Chloride w KCl 20 MEQ/1,000 ML MLS IVC SCH (02:15)
--- NOTE | 2018-08-11 02:24 | Internal Med History&Physical ---
Date of Encounter: 08/11/18 Time of Encounter: 01:45 Internal Medicine - H&P: HPI Chief complaint: chest pain Admitted From: Emergency Dept Plans for Post Hospital Care: Home History of present illness: Mr. Arriaza is a 63 year old male who presents with complaints of chest pain, pressure, and shortness of breath tonight. Symptoms started while he was watching TV. He took a SL nitroglycerin without relief. He then called EMS and was brought to ER. He received 3 more SL NTG en route to ER. By the time he arrived to ER, he was chest pain free after 4 total doses of NTG. Work-up in ER was negative, and patient was admitted to hospitalist service. Upon my assessment of the patient, he remains chest pain free. He reiterates the above history. He also states his chest pain was identical to that of his NSTEMI last year. He states he has been taking his ASA and Plavix as directed. He continues to smoke despite his coronary disease. He denies any coughing, fevers, chest congestion, wheezing, vomiting, or diarrhea. Past Med Surg Social Fam HX - Past Medical History Attestation: Yes The following information was validated with the patient. Source: patient, old records reviewed Medical history: CVA, hyperlipidemia, hypertension, myocardial infarction Additional medical history: alcohol abuse Psychiatric history: depression - Past Surgical History Surgical History: angioplasty/stent - Social History Smoking Status: Current every day smoker Smokeless Tobacco Status: No Alcohol use: heavy, recent Drug use: none Current living situation: Home, With Family Activity Level: Independent ambulation Recent Out of Country Travel Within the Last 8 Weeks: No - Family History Mother Adopted: No Living Status: Cause of : cancer Hx Family Cardiac Disorders: No Hx Family Respiratory Disorders: Yes (mother COPD) Hx Family Cancer: Yes (mother lung) Hx Family GI Disorders: No Hx Family Genitourinary Disorders: No Hx Family Endocrine Disorder: No Hx Family Musculoskeletal Disorders: No Hx Family Neuromuscular Disorders: No Hx Family Neurologic Disorders: No Hx Family HEENT Disorders: No Hx Family Autoimmune Disorders: No Hx Family Reproductive Disorders: No Hx Family Psychosocial Disorders: No Hx Family Medical Disorders: No Internal Medicine - H&P: Meds Acetaminophen [Tylenol] 650 mg PO Q6HR PRN tablet 08/20/17 [Rx] Aspirin 81 mg PO DAILY tab.chew 08/20/17 [Rx] Atorvastatin [Lipitor] 40 mg PO HS #30 tablet 08/20/17 [Rx] Carvedilol [Coreg] 12.5 mg PO BIDWM #60 tablet 08/20/17 [Rx] Clopidogrel [Plavix] 75 mg PO DAILY #30 tablet 08/20/17 [Rx] FLUoxetine HCl [Fluoxetine HCl] 10 mg PO DAILY #30 capsule 08/20/17 [Rx] Folic Acid 1 mg PO Q24H tablet 08/20/17 [Rx] Lisinopril [Zestril] 5 mg PO DAILY #30 tablet 08/20/17 [Rx] Multivit/Ca/Min/Fe/FA [Thera M Plus] 1 tab PO DAILY tablet 08/20/17 [Rx] Nitroglycerin 0.4 mg SL Q5MIN PRN #40 tab.subl 08/20/17 [Rx] Thiamine (B-1) [Vitamin B-1] 100 mg PO Q24H tablet 08/20/17 [Rx] 3 Allergy/AdvReac Type Severity Reaction Status Date / Time No Known Allergies Allergy Verified 07/07/17 09:48 - Constitutional Constitutional: no chills, no fever(s), no night sweats - EENT Eyes: no blurry vision, no change in vision Ears: no ear pain, no tinnitus Nose, mouth and throat: no nasal congestion, no sinus pressure, no sore throat - Cardiovascular Cardiovascular ROS IM: chest pain, diaphoresis, dyspnea, no palpitations, no syncope - Respiratory Respiratory: no cough, no hemoptysis, no chest congestion, no excessive phlegm production, no change in phlegm color - Gastrointestinal Gastrointestinal: no abdominal pain, no diarrhea, no hematemesis, no hematochezia, no melena, no nausea, no vomiting - Genitourinary Genitourinary ROS male: no dysuria, no flank pain, no hematuria - Musculoskeletal Musculoskeletal ROS IM: no arthralgias, no back pain - Integumentary Integumentary IM: no rash, no jaundice - Neurological Neurological ROS: no dizziness, no focal weakness, no frequent falls, no headache(s) - Psychiatric Psychiatric: no anxiety, no depression - Endocrine Endocrine IM: no polydipsia, no polyphagia, no polyuria - Allergic/Immunologic Allergic/Immunologic: no wheezing, no GI upset with certain foods - Constitutional Vitals: Temp Pulse Resp BP Pulse Ox 98.6 F 93 17 150/90 96 08/11/18 01:09 08/11/18 01:08/11/18 01:08/11/18 01:08/11/18 01:09 General appearance: Present: cooperative, A&O X 3, pleasant, no acute distress, answers questions appropriately Exam: see below - Head Head exam: Present: normal inspection - Eye Eye exam: Present: EOMI, PERRL. Absent: scleral icterus Pupils: Present: normal accommodation - ENT ENT exam: Present: mucous membranes dry, normal exam, normal oropharynx - Neck Neck exam general surgery: Present: full ROM, supple. Absent: tenderness, nuchal rigidity, thyromegaly - Respiratory Respiratory exam: Present: CTAB. Absent: chest wall tenderness, rales, rhonchi , wheezes - Cardiovascular Cardiovascular exam: Present: distant heart sounds, RRR, +S1, +S2. Absent: diastolic murmur, systolic murmur - GI/Abdominal GI/Abdominal exam: Present: normal bowel sounds, soft. Absent: guarding, hepatomegaly, mass, rebound, splenomegaly, tenderness - Extremities Exam Extremities exam: Present: full ROM, warm, radial pulses palpable and symmetrical. Absent: calf tenderness, pedal edema, tenderness - Back Exam Back exam: Absent: CVA tenderness (L), CVA tenderness (R) - Neurological Exam Neurological exam: Present: alert, CN II-XII intact, oriented X3, no focal deficits - Psychiatric Psychiatric exam: Present: normal affect, normal mood - Skin Skin exam: Present: dry, intact, warm Internal Med - H&P Results - Labs CBC & Chem 7: 08/10/18 21:42 08/10/18 21:42 - EKG Data -: EKG Interpreted by Myself - EKG Data Prior EKG available for review: yes When compared to previous EKG: there is no significant change EKG comments: 08/11/18 02:50 NSR; old anteroseptal PA; no acute ST-T changes 08/11/18 02:50 - Diagnostic Studies Chest x-ray Status: image reviewed by me (negative) - Assessment and plan (1) Unstable angina Current Visit: Yes Status: Acute Assessment and plan: 1. Will continue ASA, Plavix, and home meds as appropriate. 2. Will place him on Lovenox 1 mg/kg SQ Q12H. 3. Will order SL NTG PRN IV Morphine PRN chest pain. 4. Will trend EKG's, Troponins, and order ECHO. 5. Keep npo and consult cardiology for possible LHC. (2) Alcohol abuse Current Visit: Yes Status: Chronic Assessment and plan: 1. Will place on CIWA protocol and monitor for withdrawal. 2. Continue MVI, Thiamine, and Folate. (3) DVT prophylaxis Current Visit: Yes Status: Acute Assessment and plan: 1. Patient on Lovenox 1 mg/kg SQ Q 12h for unstable angina.
[2018-08-11] MEDS ORDERED: *HR* LORazepam 2 MG/ML VIAL IVP PRN ×3 (02:47→11:23)
[2018-08-11] MEDS ORDERED: Ondansetron ODT 4 MG TAB.RAPDIS SL PRN (05:28)
[2018-08-11 05:38] LABS: Basophils # 0.1 K/mcL (0.0-0.2); Basophils % 0.9 %; Eosinophils # 0.1 K/mcL (0.0-0.6); Hematocrit 40.3 % (37.5-50.1); Hemoglobin 13.7 g/dL (12.9-16.9); Immature Granulocytes % 0.4 % (0-4); Lymphocytes # 1.9 K/mcL (0.6-4.6); Lymphocytes % 34.9 %; Mean Corpuscular Hemoglobin 33.5 pg (28.0-33.3); Mean Corpuscular Volume 98.5 fL (83.0-100.0); Mean Platelet Volume 9.8 fL (9.4-12.4); Monocytes # 0.4 K/mcL (0.0-1.3); Monocytes % 7.9 %; Neutrophils # 2.9 K/mcL (1.6-8.9); Platelet Count 190 K/mcL (140-400); Red Blood Count 4.09 M/mcL (4.19-5.50); Red Cell Distribution Width 14.4 % (11.5-14.5); Segmented Neutrophils % 53.9 %
[2018-08-11 05:42] LABS: Prothrombin Time 10.8 Seconds (9.4-12.1)
[2018-08-11 05:44] LABS: Activated Partial Thrombo Time 41.3 Seconds (26.0-36.0)
[2018-08-11 06:18] LABS: Troponin I < 0.03 ng/mL (< 0.04)
[2018-08-11 06:42] LABS: Alanine Aminotransferase 35 Units/L (7-52); Albumin 3.3 g/dL (3.5-5.7); Albumin/Globulin Ratio 1.3 (1.1-2.2); Alkaline Phosphatase 56 Units/L (34-104); Aspartate Amino Transferase 37 Units/L (13-39); BUN/Creatinine Ratio 9 (6-26); Bilirubin,Total 0.4 mg/dL (0.3-1.0); Blood Urea Nitrogen 9 mg/dL (8-23); Calcium 8.2 mg/dL (8.6-10.3); Carbon Dioxide 25 mEq/L (23-29); Chloride 105 mEq/L (98-107); Chol/HDL Ratio 2.7 (0-4.9); Cholesterol 143 mg/dL (< 200); Globulin 2.6 g/dL (2.4-3.5); Glucose 129 mg/dL (70-105); HDL Cholesterol 53 mg/dL (40-59); LDL Cholesterol,Calculated 57 mg/dL (0-99); Magnesium 1.8 mg/dL (1.6-2.6); Osmolality,Calculated 286 (280-300); Potassium 3.5 mEq/L (3.5-5.1); Sodium 138 mEq/L (136-145); Total Protein 5.9 g/dL (6.4-8.9); Triglycerides 164 mg/dL (< 150); eGFR For Non-African Americans > 60 (> 60)
[2018-08-11] MEDS ORDERED: Aspirin 81 MG TAB.CHEW PO SCH (09:00)
[2018-08-11] MEDS ORDERED: Thiamine (B-1) 100 MG TABLET PO SCH (09:00)
[2018-08-11] MEDS ORDERED: Multivit/Ca/Min/Fe/FA 1 TAB TABLET PO SCH (09:00)
[2018-08-11] MEDS ORDERED: Folic Acid 1 MG TABLET PO SCH (09:00)
--- NOTE | 2018-08-11 09:24 | Cardiology Consult Note ---
<MichaelShaquille evans R - Last Filed: 08/11/18 09:20> Date of Encounter: 08/11/18 Time of Encounter: 09:20 Assessment and Plan (1) Chest pain Status: Acute Presents with chest pain, similar to prior anginal equivalent, but not as severe. Relieved with nitro en route to ED. No recurrence. Troponin negative x 2. EKG no ischemic change compared to prior. [facility] 08/19/17 Double vessel CAD. RUNNING SPECIALIST of previously stented pLAD. EF 35%. Successful PTCA/Drug-Eluting Stent placement in mRCA. TTE 08/19/17 LVEF 35%. Left ventricular systolic dysfunction (LAD distribution). Pt reports compliance with DAPT (ASA and Plavix). Single CP episode relieved with nitro with known RUNNING SPECIALIST of pLAD. Discussed medical management vs. ischemic evaluation (stress test) with pt. He declines stress test, opts for medical management. Add Imdur 30mg daily. TTE pending. If no significant change from previous TTE, no further inpt cardiac testing will be warranted. BP elevated. Will resume BB and ACEi. Qualifiers: Chest pain type: unspecified Qualified Code(s): R07.9 - Chest pain, unspecified (2) CAD (coronary artery disease) Status: Chronic As above, [facility] 08/19/17 Double vessel CAD. RUNNING SPECIALIST of previously stented pLAD. [facility] Continue DAPT (ASA and Plavix), Statin, BB, ACEi. Will start Imdur 30mg daily. Qualifiers: Coronary Disease-Associated Artery/Lesion type: [place] artery [place] vs. transplanted heart: [place] heart Associated angina: with stable angina Qualified Code(s): I25.118 - Atherosclerotic heart disease of [place] coronary artery with other forms of angina pectoris (3) Tobacco abuse Status: Chronic Continues to smoke 1PPD. Smoking cessation counseling given. (4) Essential hypertension Status: Chronic BP elevated this AM 170s systolic. Will resume home BB and ACEi. Adjust as necessary to optimal BP control. (5) Ischemic cardiomyopathy Status: Chronic Known ICMP. TTE 08/19/17: LVEF 35%. Left ventricular systolic dysfunction (LAD distribution). Repeat TTE pending. Euvolemic on exam. Continue BB and ACEi. If EF remains <35%, outpt referral to ICD insertion. Discussion w patient/family: The assessment and plan as outlined above was discussed with the patient and/or family members who expressed understanding and agreement. All questions were answered. Thank you for involving us in the care of your patient. Please call with any questions. I will discuss all the above with Dr. Liao and make changes as necessary. History of Present Illness Consult date: 08/11/18 Requesting physician: [place] Consult reason: Chest pain Chief complaint: Chest pain History of present illness: Mr. Arriaza is a 63 year old male with PMH of CAD with hx NSTEMI and PCI (most recent 07/2017), ICMP EF 35%, tobacco abuse, presented with complaints of chest pain, pressure, and shortness of breath last night. Symptoms started while he was watching TV. He states it felt like a "punch" to the chest. He took a SL nitroglycerin without relief. He then called EMS and was brought to ER. He received 3 more SL NTG en route to ER. By the time he arrived to ER, he was chest pain free after 4 total doses of NTG. He remains chest pain free. Pt states pain was similar to prior anginal equivalent, but not as severe and did not last as long. He states he has been compliant with DAPT (ASA and Plavix). He unfortunately continues to smoke 1PPD. Troponin negative x 2. Cardiology consulted for further recs. Prior CV testing [facility] 08/19/17: Double vessel coronary artery disease. RUNNING SPECIALIST of previously stented proximal LAD. There is moderate to severe LV Dysfunction EF 35%. Patient had successful PTCA/Drug-Eluting Stent placement in the mid RCA. TTE 08/19/17: LVEF 35%. Mildly dilated left ventricle. Left ventricular systolic dysfunction (LAD distribution). Indeterminate diastolic function. Normal right ventricular structure and function. Unable to estimate RVSP due to lack of TR jet. No significant valvular dysfunction. Wall motion abnormalities similar to prior test results. Past Med Surg Social Fam HX - Past Medical History Medical history: cardiomyopathy, coronary artery disease, CVA, hyperlipidemia, hypertension, myocardial infarction Additional medical history: alcohol abuse Psychiatric history: depression - Past Surgical History Surgical History: angioplasty/stent - Social History Smoking Status: Current every day smoker Smokeless Tobacco Status: No Alcohol use: heavy, recent Drug use: none - Family History Mother Adopted: No Living Status: Cause of : cancer Hx Family Cardiac Disorders: No Hx Family Respiratory Disorders: Yes (mother COPD) Hx Family Cancer: Yes (mother lung) Hx Family GI Disorders: No Hx Family Genitourinary Disorders: No Hx Family Endocrine Disorder: No Hx Family Musculoskeletal Disorders: No Hx Family Neuromuscular Disorders: No Hx Family Neurologic Disorders: No Hx Family HEENT Disorders: No Hx Family Autoimmune Disorders: No Hx Family Reproductive Disorders: No Hx Family Psychosocial Disorders: No Hx Family Medical Disorders: No Medications and Allergies Acetaminophen [Tylenol] 650 mg PO Q6HR PRN tablet 08/20/17 [Rx] Clopidogrel [Plavix] 75 mg PO DAILY #30 tablet 08/20/17 [Rx] FLUoxetine HCl [Fluoxetine HCl] 10 mg PO DAILY #30 capsule 08/20/17 [Rx] Nitroglycerin 0.4 mg SL Q5MIN PRN #40 tab.subl 08/20/17 [Rx] Aspirin 325 mg PO DAILY 08/11/18 [History] Atorvastatin Calcium 80 mg PO DAILY 08/11/18 [History] Carvedilol [Coreg] 6.25 mg PO BIDWM 08/11/18 [History] Isosorbide MONOnitrate (24 HR) [Imdur] 30 mg PO DAILY 30 Days #30 tab.er.24h [Rx] Losartan Potassium [Cozaar] 50 mg PO DAILY 08/11/18 [History] 3 Allergy/AdvReac Type Severity Reaction Status Date / Time No Known Allergies Allergy Verified 08/11/18 09:12 All Systems Review: The remainder of the systems were reviewed and are negative - Cardiovascular Cardiovascular: as per HPI, chest pain at rest, dyspnea at rest - Respiratory Respiratory: dyspnea Physical Examination Vital Signs, Last 4 Hours Temp Pulse Resp BP Pulse Ox 08/11/18 08:10 97.9 F 78 18 173/85 96 Vital Signs Temp Pulse Resp BP Pulse Ox 08/11/18 08:10 97.9 F 78 18 173/85 96 08/11/18 01:09 98.6 F 93 17 150/90 96 08/11/18 00:02 18 144/90 08/10/18 23:45 81 22 144/98 98 08/10/18 23:18 77 20 139/95 97 08/10/18 22:35 78 22 136/88 98 08/10/18 21:30 98.4 F 97 24 125/90 100 Intake and Output 08/10/18 08/11/18 08/11/18 23:59 07:59 15:59 Output Total 0 / 0 Balance 0 / 0 Output: Urine 0 / 0 Other: Weight 86.636 kg 85.1 kg Patient Weight 08/11/18 23:59 Weight 85.1 kg General: Conversant, No Apparent Distress HEENT: Atraumatic, Normocephaly, Mucus Membranes Moist Neck: No JVD, Normal carotid pulses Cardiac: Reg Rate and Rhythm, Normal S1 and S2, No Murmur Lungs: Other (coarse) Neuro: Alert and responsive, No focal deficits noted Abdomen: Soft, Non-Tender Skin: No rashes noted on visualized skin Musculoskeletal: No Chest Wall Tenderness Extremities: No Clubbing, No Cyanosis, No Edema, Normal Pulses Results 08/11/18 04:36 08/11/18 04:36 Lab Results 08/11/18 08/11/18 08/11/18 04:36 04:36 04:36 WBC 5.5 Hgb 13.7 Hct 40.3 Plt Count 190 INR 1.0 APTT 41.3 H Sodium 138 Potassium 3.5 Chloride 105 Carbon Dioxide 25 BUN 9 Creatinine 1.02 Glucose 129 H Calcium 8.2 L Magnesium 1.8 Total Bilirubin 0.4 AST 37 ALT 35 Alkaline Phosphatase 56 Troponin I < 0.03 Short CBC 08/11/18 08/10/18 Range/Units 04:36 21:42 WBC 5.5 5.0 (4.3-11.1) K/mcL Hgb 13.7 13.7 (12.9-16.9) g/dL Hct 40.3 39.5 (37.5-50.1) % Plt Count 190 195 (140-400) K/mcL Neutrophils # 2.9 2.5 (1.6-8.9) K/mcL BMP 08/11/18 08/10/18 Range/Units 04:36 21:42 Sodium 138 138 (136-145) mEq/L Potassium 3.5 3.7 (3.5-5.1) mEq/L Chloride 105 107 (98-107) mEq/L Carbon Dioxide 25 23 (23-29) mEq/L BUN 9 9 (8-23) mg/dL Creatinine 1.02 0.92 (0.70-1.30) mg/dL Glucose 129 H 104 (70-105) mg/dL Calcium 8.2 L 8.3 L (8.6-10.3) mg/dL Cardiac Enzymes 08/11/18 08/10/18 Range/Units 04:36 21:42 Troponin I < 0.03 < 0.03 (< 0.04) ng/mL Liver Function 08/11/18 Range/Units 04:36 Total Bilirubin 0.4 (0.3-1.0) mg/dL AST 37 (13-39) Units/L ALT 35 (7-52) Units/L Alkaline Phosphatase 56 (34-104) Units/L Albumin 3.3 L (3.5-5.7) g/dL Impressions Chest X-Ray 08/10/18 21:28 IMPRESSION: No radiographic evidence of acute cardiopulmonary disease. D/ / Caden Camargo / Caden Camargo Interpreting Provider: Caden Camargo Active Medications Aspirin (Aspirin) 81 mg PO DAILY [facility] Stop: 02/10/19 09:01 Atorvastatin Calcium (Lipitor) 40 mg PO HS [facility] Stop: 02/10/19 21:01 Clopidogrel Bisulfate (Plavix) 75 mg PO DAILY [facility] Stop: 02/10/19 09:01 Enoxaparin Sodium (Lovenox) 90 mg 1 mg/kg (90 mg) SQ Q12H [facility] PRN Reason: Protocol Stop: 02/10/19 11:01 Folic Acid (Folic Acid) 1 mg PO DAILY [facility] Stop: 02/10/19 09:01 Potassium Chloride/Sodium Chloride (Kcl 20 Meq In 0.9% Sodium Chloride) 20 meq in 1,000 mls @ 75 mls/hr IVC .[id number] [facility]ADI Stop: 08/12/18 04:54 Last Admin: 08/11/18 03:41 Dose: 75 mls/hr Isosorbide Mononitrate (Imdur) 30 mg PO DAILY [facility] Stop: 02/10/19 09:31 Lorazepam (Ativan) 1 mg IVP Q1H PRN PRN Reason: Alcohol Withdrawal Stop: 02/10/19 02:48 Morphine Sulfate (Morphine Sulfate) 2 mg IVP Q3H PRN; Protocol PRN Reason: Chest Pain Stop: 02/10/19 02:11 Multivitamins/Calcium (Thera M Plus) 1 tab PO DAILY [facility]ADI PRN Reason: Protocol Stop: 02/10/19 09:01 Naloxone HCl (Narcan) 0.4 mg IVP Q2MIN PRN PRN Reason: SEE COMMENTS Stop: 02/10/19 02:04 Nitroglycerin (Nitroglycerin) 0.4 mg SL Q5MIN PRN PRN Reason: Chest Pain Stop: 02/10/19 02:11 Ondansetron HCl (Zofran Odt) 4 mg SL Q6HR PRN PRN Reason: Nausea And Vomiting Stop: 02/10/19 05:29 Last Admin: 08/11/18 05:39 Dose: 4 mg Thiamine HCl (Vitamin B-1) 100 mg PO DAILY [facility]ADI Stop: 02/10/19 09:01 - Imaging and Cardiology Echo: pending Cardiac cath: report reviewed - EKG Interpretation EKG results cardiology: personally reviewed (SR, prior infarct), other (12 hr tele AVG HR 87, SR, no significant pauses or arrhythmias.) Consult Discharge Plan - Plan Instructions: Chest Pain (DC) Additional Instructions: Dr Chambers office is aware you require follow up and will be contacting you to schedule appointment [facility] - 08/18/18 10:30 am (Please follow up as schedule...) Prescriptions: Isosorbide MONOnitrate (24 HR) [Imdur] 30 mg PO DAILY 30 Days #30 tab.er.24h < A - Last Filed: 08/11/18 17:33> Date of Encounter: 08/11/18 - Attending Attestation I have personally performed a face to face evaluation on this patient. I have reviewed and agree with the care plan. History and Exam by me shows: 63 y/o M with hx of CAD presenting with chest pain. Echo shows EF of 40%. Patient does not want stress test or coronary angiogram. Optimize medical management, with B and[place], and ACEI. Assessment and Plan Discussion w patient/family: The assessment and plan as outlined above was discussed with the patient and/or family members who expressed understanding and agreement. All questions were answered. Thank you for involving us in the care of your patient. Please call with any questions. History of Present Illness History of present illness: Mr. Arriaza is a 63 year old male All Systems Review: The remainder of the systems were reviewed and are negative Results 08/11/18 04:36 08/11/18 04:36 Lab Results 08/11/18 08/11/18 08/11/18 04:36 04:36 04:36 WBC 5.5 Hgb 13.7 Hct 40.3 Plt Count 190 INR 1.0 APTT 41.3 H Sodium 138 Potassium 3.5 Chloride 105 Carbon Dioxide 25 BUN 9 Creatinine 1.02 Glucose 129 H Calcium 8.2 L Magnesium 1.8 Total Bilirubin 0.4 AST 37 ALT 35 Alkaline Phosphatase 56 Troponin I < 0.03 08/11/18 10:23 WBC Hgb Hct Plt Count INR APTT Sodium Potassium Chloride Carbon Dioxide BUN Creatinine Glucose Calcium Magnesium Total Bilirubin AST ALT Alkaline Phosphatase Troponin I < 0.03
[2018-08-11] MEDS ORDERED: Isosorbide MONOnitrate (24 HR) 30 MG TAB.ER.24H PO SCH (09:30)
[2018-08-11] MEDS ORDERED: Perflutren Lipid Microsphere 1.3 ML in 0.9 % Sodium Chloride 8.7 ML IVP ONE (09:30)
[2018-08-11] MEDS ORDERED: *HR* Enoxaparin 100 MG/ML SYRINGE SQ SCH (11:00)
[2018-08-11 11:24] VITALS: BP 156/82
--- NOTE | 2018-08-11 12:59 | Event Note ---
Date of Encounter: 08/11/18 Time of Encounter: 10:40 pt seen and examined Denies any further episodes of chest pain, no palpitations, sob/n/v/ diaphoresis. No presyncope, syncope, le edema or orthopnea. Awaiting echo results and further cards recs He is stating he wants to dc to home today. at bedside encouraging him to permit full work up to be completed gen- awake, alert, nad eyes- pupils equal round, eom intact neck - supple, trachea midline cv- RRR, no murmurs appreciated, normal S1S2, no jvd, no le edema, radial pulse 2+ and regular lungs- occassional exp wheeze anteriorly, no rhonchi, no crackles, normal resp effort on ra abd- soft, nt, nd, + bs skin - normal color, no rash, pallor or jaundice Angina with known CAD. Compliant with meds -cards work up today-trop trend neg, echo pending, he refused stress test, further cards recs pending echo Bp elevated- cont home meds and improved, monitor and will require outpt fu hx etoh abuse on ciwa, no s/s of w/d at this time
--- NOTE | 2018-08-11 13:45 | Discharge Summary ---
- NOTES TO OUTPATIENT PROVIDER Notes to Outpatient Provider: requires outpt cards follow up Orders not resulted at time of discharge: Pending orders 08/11/18 06:00 ECG 12 lead ECG [ECG] AM 0600 Date of Encounter: 08/11/18 Time of Encounter: 10:40 - Discharge Diagnosis (1) Unstable angina Priority: Primary Status: Resolved Assessment and Plan: Known hx cad, ICM and prsented with chest pain concerning for unstable angina Chest pain likely 2/2 Angina, not unstable History includes: HC 08/19/17 Double vessel CAD. REIMBURSEMENT REP of previously stented pLAD. EF 35%. Successful PTCA/Drug-Eluting Stent placement in mRCA. TTE 08/19/17 LVEF 35%. Left ventricular systolic dysfunction (LAD distribution). pain resolved with nitro en route and did not return -trop trend neg, ekg without acute ischemic changes -cont DAPT and pt reported compliance -therapeutic lovenox on admit discontinued -cont statin, BB, arb, prn nitro (docuemnted by cards cont acei however updated pharm med rec determined he takes arb now not acei) -consulted cards and rec for stress test vs medical management and pt opted for med management -imdur added -echo 08/11 EF 40%, hypokinetic booth not sig changed from prior as d/w cards team -08/11 as d/w cards may dc to home and their office will be in touch with him to schedule his outpt appt with dr Chambers (2) CAD (coronary artery disease) Priority: Primary Status: Chronic Assessment and Plan: as above cont home meds + imdur at dc and fu with dr Chambers Qualifiers: Coronary Disease-Associated Artery/Lesion type: [place] artery [place] vs. transplanted heart: [place] heart Associated angina: with stable angina Qualified Code(s): I25.118 - Atherosclerotic heart disease of [place] coronary artery with other forms of angina pectoris (3) Essential hypertension Priority: Secondary Status: Chronic Assessment and Plan: Bps mildly elevated and imdur added as above requires outpt fu for further management (4) Ischemic cardiomyopathy Priority: Secondary Status: Chronic Assessment and Plan: as above (5) Hyperlipidemia Priority: Secondary Status: Chronic Assessment and Plan: Lipid panl here with elevated TGs -cont statin Qualifiers: Hyperlipidemia type: unspecified Qualified Code(s): E78.5 - Hyperlipidemia , unspecified (6) Alcohol abuse Priority: Secondary Status: Chronic Assessment and Plan: no s/s of etoh withdrawal ciwa in place this admission (7) DVT prophylaxis Priority: Secondary Status: Acute Assessment and Plan: lovenox (8) Tobacco abuse Priority: Secondary Status: Chronic Assessment and Plan: educated regarding quitting declined nicotine patch Hospital course: Mr. Arriaza is a 63 year old male with chest pain and known CAD. He was evaluated by cardiology with neg trops, unremarkable tele, echo with improved EF and no sig change in wall motion abnormalities. EKG without acute ischemic changes. He refused stress testing and opted for medical management. Cont on home meds with addition of imdur and outpt fu with his cards Dr Chambers and rec by cards team. dc to home in stable condition. He is not interested in stopping smoking. Full details of admission as above in a/p. This was a same day admission and discharge with face to face encounters occurring >8 hrs apart Discharge discussed with: patient - Time Spent with Patient Total time spent providing and/or coordinating discharge services: Less than 30 minutes - Discharge Medications Prescriptions: Isosorbide MONOnitrate (24 HR) [Imdur] 30 mg PO DAILY 30 Days #30 tab.er.24h Home Medications: Acetaminophen [Tylenol] 650 mg PO Q6HR PRN tablet 08/20/17 [Rx] Clopidogrel [Plavix] 75 mg PO DAILY #30 tablet 08/20/17 [Rx] FLUoxetine HCl [Fluoxetine HCl] 10 mg PO DAILY #30 capsule 08/20/17 [Rx] Nitroglycerin 0.4 mg SL Q5MIN PRN #40 tab.subl 08/20/17 [Rx] Aspirin 325 mg PO DAILY 08/11/18 [History] Atorvastatin Calcium 80 mg PO DAILY 08/11/18 [History] Carvedilol [Coreg] 6.25 mg PO BIDWM 08/11/18 [History] Isosorbide MONOnitrate (24 HR) [Imdur] 30 mg PO DAILY 30 Days #30 tab.er.24h [Rx] Losartan Potassium [Cozaar] 50 mg PO DAILY 08/11/18 [History] Allergies/Adverse Reactions: 3 Allergy/AdvReac Type Severity Reaction Status Date / Time No Known Allergies Allergy Verified 08/11/18 09:12 Date of admission: 08/10/18 23:44 Primary care physician: URBAN FLORES Consults: 08/11/18 02:07 Consult to Physician [CONS] Routine Consulting Provider: Christopher Liao Reason for Consult: unstable angina Call Completed: No Discharging clinician: Rosa Elena Brothers - Constitutional Vitals: Temp Pulse Resp BP Pulse Ox 98.8 F 82 17 156/82 94 08/11/18 11:23 08/11/18 11:23 08/11/18 11:23 08/11/18 11:23 08/11/18 11:23 General appearance: Present: cooperative, A&O X 3, pleasant, no acute distress, answers questions appropriately Exam: gen- awake, alert, nad eyes- pupils equal round, eom intact neck - supple, trachea midline cv- RRR, no murmurs appreciated, normal S1S2, no jvd, no le edema, radial pulse 2+ and regular lungs- occassional exp wheeze anteriorly, no rhonchi, no crackles, normal resp effort on ra abd- soft, nt, nd, + bs skin - normal color, no rash, pallor or jaundice - Patient Status Disposition: Home, Self-Care Condition: Good Overall status at discharge: patient is back to baseline - Discharge Instructions Follow Up With: SANDRA,PCP [Primary Care Provider] - 08/18/18 10:30 am (Please follow up as schedule...) Additional Instructions: Dr Chambers office is aware you require follow up and will be contacting you to schedule appointment - Diet and Activity Activity: increase activity as tolerated Diet: low fat, low cholesterol, low salt diet
[2018-08-12] MEDS ORDERED: *HR* Enoxaparin 40 MG/0.4 ML SYRINGE SQ SCH (06:00)
--- NOTE | 2018-08-13 14:56 | Electrocardiograph Report ---
[facility] Test Date: 2018-08-10 Pat Name: Matthieu Arriaza Department: [id number] Room: 2A14 Gender: M [employer]: : 1955 Requested By: Radha Hinson Order Number: [id number] Reading MD: Arun Rousseau Measurements Intervals [place] Rate: 89 P: 6 MN: 130 QRS: 0 QRSD: 84 T: 41 QT: 362 QTc: 441 Interpretive Statements Sinus rhythm Probable inferior infarct, old Anteroseptal infarct, old Electronically Signed On 08-13-2018 14:55:02 EDT by Arun Rousseau
== END 2018-08-11 14:41 | disposition home or self-care (01) ==
LOC: 2ANU 21:21 → EMEROOARM 21:21 → SUATTDRO 23:44 → 2ANU 08-11 00:08
PROVIDERS: ADMIT Pediatrics; ATTEND Internal Medicine

== ENCOUNTER 2019-07-01 19:59 | Inpatient (IN) ==
[2019-07-01] MEDS ORDERED: 0.9 % Sodium Chloride 1,000 ML IVC ONE (20:07)
[2019-07-01 20:55] LABS: Basophils % 0.6 %; Eosinophils # 0.1 K/mcL (0.0-0.6); Eosinophils % 0.8 %; Hematocrit 37.6 % (37.5-50.1); Hemoglobin 12.8 g/dL (12.9-16.9); Immature Granulocytes % 0.2 % (0-4); Lymphocytes # 1.3 K/mcL (0.6-4.6); Lymphocytes % 20.8 %; Mean Corpuscular Hemoglobin 33.9 pg (28.0-33.3); Mean Corpuscular Volume 99.5 fL (83.0-100.0); Mean Platelet Volume 10.4 fL (9.4-12.4); Monocytes # 0.4 K/mcL (0.0-1.3); Monocytes % 5.7 %; Neutrophils # 4.6 K/mcL (1.6-8.9); Platelet Count 162 K/mcL (140-400); Red Blood Count 3.78 M/mcL (4.19-5.50); Segmented Neutrophils % 71.9 %; White Blood Count 6.4 K/mcL (4.3-11.1)
[2019-07-01 21:02] LABS: INR 0.9; Prothrombin Time 10.6 Seconds (9.4-12.1)
[2019-07-01 21:05] LABS: Activated Partial Thrombo Time 25.6 Seconds (26.0-36.0)
[2019-07-01 21:16] LABS: Alanine Aminotransferase 42 Units/L (7-52); Albumin/Globulin Ratio 1.4 (1.1-2.2); Alkaline Phosphatase 73 Units/L (34-104); Aspartate Amino Transferase 47 Units/L (13-39); BUN/Creatinine Ratio 10 (6-26); Bilirubin,Total 0.6 mg/dL (0.3-1.0); Blood Urea Nitrogen 13 mg/dL (8-23); Calcium 8.9 mg/dL (8.6-10.3); Carbon Dioxide 31 mEq/L (23-29); Chloride 98 mEq/L (98-107); Globulin 2.8 g/dL (2.4-3.5); Glucose 148 mg/dL (70-105); Osmolality,Calculated 295 (280-300); Potassium 2.9 mEq/L (3.5-5.1); Sodium 141 mEq/L (136-145); Total Protein 6.8 g/dL (6.4-8.9); eGFR For African Americans > 60 (> 60); eGFR For Non-African Americans 58 (> 60)
[2019-07-01 21:17] LABS: Ethanol 168 mg/dL (Less than 10)
[2019-07-01 21:18] LABS: Troponin I < 0.03 ng/mL (< 0.04)
[2019-07-01] MEDS ORDERED: Thiamine (B-1) 100 MG TABLET PO STA (21:27)
[2019-07-01] MEDS ORDERED: Multivit/Ca/Min/Fe/FA 1 TAB TABLET PO ONE (21:30)
[2019-07-01 23:04] LABS: Bacteria,Urine None Seen per hpf (None-Few); Bilirubin,Urine Small (Negative); Blood,Urine Negative (Negative); Clarity,Urine Clear (Clear); Color,Urine Dark Yellow (Yellow); Glucose,Urine (UA) Normal (Normal); Hyaline Casts,Urine None Seen per lpf (None-Few); Ketones,Urine Trace mg/dL (Negative); Leukocyte Esterase,Urine Negative (Negative); Nitrite,Urine Negative (Negative); Protein,Urine 30 mg/dL (Neg-Trace); Specific Gravity,Urine 1.023 (1.010-1.025); Squamous Epithelial Cell,Urine Many per lpf (None-Few); Urobilinogen,Urine Normal (Normal); WBC,Urine 0-3 per hpf (0-3)
[2019-07-02] MEDS ORDERED: *HR* HYDROcodone/Acet 5/325 mg TABLET PO PRN (01:08)
[2019-07-02] MEDS ORDERED: Acetaminophen 325 MG TABLET PO PRN (01:08)
[2019-07-02] MEDS ORDERED: Naloxone 0.4 MG/ML INJ IVP PRN ×2 (01:08→03:27)
[2019-07-02] MEDS ORDERED: *HR* LORazepam 2 MG/ML VIAL IVP PRN ×5 (01:13→03:27)
[2019-07-02] MEDS ORDERED: *HR* Promethazine 25 MG/ML VIAL IVP PRN ×2 (01:13→03:27)
[2019-07-02] MEDS ORDERED: 0.9 % Sodium Chloride 1,000 ML IVC SCH (01:15)
[2019-07-02] MEDS ORDERED: *HR* LORazepam 2 MG/ML VIAL IVP ONE (02:10)
[2019-07-02 03:35] LABS: Hematocrit 32.7 % (37.5-50.1); Mean Corpuscular HGB Conc 33.9 g/dL (31.6-35.5); Mean Corpuscular Hemoglobin 33.1 pg (28.0-33.3); Mean Corpuscular Volume 97.6 fL (83.0-100.0); Mean Platelet Volume 10.8 fL (9.4-12.4); Platelet Count 130 K/mcL (140-400); Red Blood Count 3.35 M/mcL (4.19-5.50); Red Cell Distribution Width 13.9 % (11.5-14.5); White Blood Count 7.6 K/mcL (4.3-11.1)
[2019-07-02 03:36] LABS: Hemoglobin 11.1 g/dL (12.9-16.9)
[2019-07-02 03:43] LABS: BUN/Creatinine Ratio 11 (6-26); Blood Urea Nitrogen 12 mg/dL (8-23); Carbon Dioxide 28 mEq/L (23-29); Chloride 101 mEq/L (98-107); Glucose 92 mg/dL (70-105); Osmolality,Calculated 287 (280-300); Potassium 3.4 mEq/L (3.5-5.1); Sodium 139 mEq/L (136-145); eGFR For African Americans > 60 (> 60); eGFR For Non-African Americans > 60 (> 60)
[2019-07-02 03:44] LABS: Calcium 8.4 mg/dL (8.6-10.3)
[2019-07-02] MEDS: 0.9 % Sodium Chloride 1,000 ML IVC SCH ×2 (03:55→20:09)
[2019-07-02] MEDS: *HR* LORazepam 2 MG/ML VIAL IVP PRN ×3 (07:43→19:50)
[2019-07-02] MEDS ORDERED: Folic Acid 1 MG TABLET PO SCH (09:00)
[2019-07-02] MEDS: Folic Acid 1 MG TABLET PO SCH (09:23)
[2019-07-02] MEDS: Thiamine (B-1) 100 MG, Folic Acid 1 MG, MVI, adult with vitamin K 10 ML in 0.9 % Sodi... IVPB SCH (15:24)
[2019-07-02] MEDS ORDERED: Thiamine (B-1) 100 MG, Folic Acid 1 MG, MVI, adult with vitamin K 10 ML in 0.9 % Sodi... IVPB SCH (18:00)
[2019-07-03 06:21] LABS: BUN/Creatinine Ratio 14 (6-26); Blood Urea Nitrogen 16 mg/dL (8-23); Calcium 8.4 mg/dL (8.6-10.3); Carbon Dioxide 28 mEq/L (23-29); Chloride 104 mEq/L (98-107); Ethanol < 10 mg/dL (Less than 10); Glucose 95 mg/dL (70-105); Osmolality,Calculated 291 (280-300); Potassium 3.3 mEq/L (3.5-5.1); Sodium 140 mEq/L (136-145); eGFR For African Americans > 60 (> 60); eGFR For Non-African Americans > 60 (> 60)
[2019-07-03] MEDS: Aspirin 325 MG TABLET PO SCH (08:29)
[2019-07-03] MEDS: carvediloL 6.25 MG TABLET PO SCH ×2 (08:29→17:06)
[2019-07-03] MEDS: FLUoxetine HCl 10 MG CAPSULE PO SCH (08:30)
[2019-07-03] MEDS: Folic Acid 1 MG TABLET PO SCH (08:30)
[2019-07-03] MEDS: Thiamine (B-1) 100 MG TABLET PO SCH ×2 (08:31→21:43)
[2019-07-03] MEDS: *HR* HYDROcodone/Acet 5/325 mg TABLET PO PRN ×2 (08:32→13:43)
[2019-07-03] MEDS: *HR* LORazepam 2 MG/ML VIAL IVP PRN ×2 (08:56→22:07)
[2019-07-03] MEDS ORDERED: ACAMPROSATE CALCIUM 333 MG PO SCH (09:00)
[2019-07-03] MEDS: Thiamine (B-1) 100 MG, Folic Acid 1 MG, MVI, adult with vitamin K 10 ML in 0.9 % Sodi... IVPB SCH (17:05)
[2019-07-04] MEDS: Acetaminophen 325 MG TABLET PO PRN ×2 (02:15→09:19)
[2019-07-04] MEDS: *HR* LORazepam 2 MG/ML VIAL IVP PRN (02:15)
[2019-07-04 05:21] LABS: BUN/Creatinine Ratio 14 (6-26); Blood Urea Nitrogen 16 mg/dL (8-23); Calcium 8.3 mg/dL (8.6-10.3); Carbon Dioxide 25 mEq/L (23-29); Chloride 106 mEq/L (98-107); Glucose 140 mg/dL (70-105); Osmolality,Calculated 285 (280-300); Potassium 3.4 mEq/L (3.5-5.1); Sodium 136 mEq/L (136-145); eGFR For African Americans > 60 (> 60); eGFR For Non-African Americans > 60 (> 60)
[2019-07-04] MEDS: carvediloL 6.25 MG TABLET PO SCH (09:14)
[2019-07-04] MEDS: Folic Acid 1 MG TABLET PO SCH (09:14)
[2019-07-04] MEDS: Thiamine (B-1) 100 MG TABLET PO SCH (09:15)
[2019-07-04] MEDS: Aspirin 325 MG TABLET PO SCH (09:15)
[2019-07-04] MEDS: FLUoxetine HCl 10 MG CAPSULE PO SCH (09:15)
[2019-07-04 11:37] VITALS: BP 138/89
[2019-07-05] MEDS ORDERED: Thiamine (B-1) 100 MG TABLET PO SCH ×2 (09:00)
[2019-07-05] MEDS ORDERED: Vitamin B Complex/Vit C/Vit E 1 EACH TABLET PO SCH ×2 (09:00)
== END 2019-07-04 17:11 | disposition home or self-care (01) | DRG 897 ==
LOC: 2ANU 19:59 → EMEROOARM 19:59 → SUATTDRO 22:27 → 2ANU 23:39 → 2NNU 07-02 03:48 → 2ANU 07-03 17:44
PROVIDERS: ADMIT Family Medicine; ATTEND Internal Medicine

== ENCOUNTER 2019-11-09 07:30 | Observation (INO) ==
[2019-11-09] MEDS ORDERED: Aspirin 81 MG TAB.CHEW PO STA (08:11)
[2019-11-09 08:17] LABS: Hematocrit 36.5 % (37.5-50.1); Hemoglobin 12.9 g/dL (12.9-16.9); Mean Corpuscular HGB Conc 35.3 g/dL (31.6-35.5); Mean Corpuscular Hemoglobin 35.3 pg (28.0-33.3); Mean Platelet Volume 10.1 fL (9.4-12.4); Platelet Count 305 K/mcL (140-400); Red Blood Count 3.65 M/mcL (4.19-5.50); Red Cell Distribution Width 16.5 % (11.5-14.5)
[2019-11-09 10:38] LABS: Blood Urea Nitrogen 27 mg/dL (8-23); Calcium 9.3 mg/dL (8.6-10.3); Carbon Dioxide 27 mEq/L (23-29); Chloride 99 mEq/L (98-107); Glucose 90 mg/dL (70-105); Magnesium 1.9 mg/dL (1.6-2.6); Osmolality,Calculated 287 (280-300); Potassium 3.8 mEq/L (3.5-5.1); Sodium 136 mEq/L (136-145); Troponin I < 0.03 ng/mL (< 0.04)
[2019-11-09 11:25] LABS: BUN/Creatinine Ratio 19 (6-26); eGFR For African Americans 59 (> 60); eGFR For Non-African Americans 49 (> 60)
[2019-11-09] MEDS ORDERED: Naloxone 0.4 MG/ML INJ IVP PRN (17:36)
[2019-11-09] MEDS ORDERED: 0.9 % Sodium Chloride 1,000 ML IVC SCH (17:45)
[2019-11-10 04:16] LABS: Hematocrit 35.6 % (37.5-50.1); Hemoglobin 11.9 g/dL (12.9-16.9); Mean Corpuscular HGB Conc 33.4 g/dL (31.6-35.5); Mean Corpuscular Hemoglobin 33.6 pg (28.0-33.3); Mean Corpuscular Volume 100.6 fL (83.0-100.0); Platelet Count 310 K/mcL (140-400); Red Blood Count 3.54 M/mcL (4.19-5.50); Red Cell Distribution Width 16.3 % (11.5-14.5); White Blood Count 6.6 K/mcL (4.3-11.1)
[2019-11-10 04:33] LABS: BUN/Creatinine Ratio 20 (6-26); Blood Urea Nitrogen 24 mg/dL (8-23); Calcium 8.4 mg/dL (8.6-10.3); Carbon Dioxide 26 mEq/L (23-29); Chloride 104 mEq/L (98-107); Glucose 92 mg/dL (70-105); Osmolality,Calculated 286 (280-300); Potassium 3.7 mEq/L (3.5-5.1); Sodium 136 mEq/L (136-145); eGFR For African Americans > 60 (> 60); eGFR For Non-African Americans 59 (> 60)
[2019-11-10 12:29] LABS: Amphetamine Screen,Urine Negative ng/mL (Cutoff=1000); Barbiturate Screen,Urine Negative ng/mL (Cutoff=200); Benzodiazepines Screen,Urine Negative ng/mL (Cutoff=200); Cannabinoid Screen,Urine Positive ng/mL (Cutoff = 50); Cocaine Screen,Urine Negative ng/mL (Cutoff= 300); Opiate Screen,Urine Negative ng/mL (Cutoff=300); Phencyclidine Screen,Urine Negative ng/mL (Cutoff=25)
[2019-11-10] MEDS: FLUoxetine 20 MG CAPSULE PO SCH (13:30)
[2019-11-10] MEDS: Aspirin Enteric Coated 81 MG Tablet PO SCH (13:31)
[2019-11-10 15:13] LABS: Ethanol < 10 mg/dL (Less than 10)
[2019-11-10] MEDS: Acetaminophen 325 MG TABLET PO PRN (23:22)
[2019-11-11] MEDS: Nitroglycerin 0.4 MG TAB.SUBL SL PRN ×2 (06:50→06:56)
[2019-11-11 07:37] LABS: Hematocrit 34.1 % (37.5-50.1); Hemoglobin 11.7 g/dL (12.9-16.9); Mean Corpuscular HGB Conc 34.3 g/dL (31.6-35.5); Mean Corpuscular Hemoglobin 34.7 pg (28.0-33.3); Mean Corpuscular Volume 101.2 fL (83.0-100.0); Platelet Count 292 K/mcL (140-400); Red Blood Count 3.37 M/mcL (4.19-5.50); Red Cell Distribution Width 15.9 % (11.5-14.5); White Blood Count 5.5 K/mcL (4.3-11.1)
[2019-11-11] MEDS: FLUoxetine 20 MG CAPSULE PO SCH (08:00)
[2019-11-11] MEDS: Aspirin Enteric Coated 81 MG Tablet PO SCH (08:00)
[2019-11-11] MEDS: Acetaminophen 325 MG TABLET PO PRN (08:10)
[2019-11-11 08:50] LABS: Blood Urea Nitrogen 21 mg/dL (8-23); Calcium 8.7 mg/dL (8.6-10.3); Carbon Dioxide 27 mEq/L (23-29); Chloride 105 mEq/L (98-107); Glucose 92 mg/dL (70-105); Magnesium 1.9 mg/dL (1.6-2.6); Osmolality,Calculated 291 (280-300); Potassium 4.3 mEq/L (3.5-5.1); Sodium 139 mEq/L (136-145); Troponin I < 0.03 ng/mL (< 0.04)
[2019-11-11 09:52] LABS: BUN/Creatinine Ratio 17 (6-26); eGFR For African Americans > 60 (> 60); eGFR For Non-African Americans 59 (> 60)
[2019-11-11] MEDS ORDERED: Perflutren Lipid Microsphere 1.3 ML in 0.9 % Sodium Chloride 8.7 ML IVP ONE (10:51)
[2019-11-11] MEDS: Nicotine 21 MG PATCH.TD24 TD SCH (13:15)
[2019-11-12] MEDS: Acetaminophen 325 MG TABLET PO PRN ×2 (05:58→11:01)
[2019-11-12 06:42] LABS: Hematocrit 37.7 % (37.5-50.1); Hemoglobin 12.7 g/dL (12.9-16.9); Mean Corpuscular HGB Conc 33.7 g/dL (31.6-35.5); Mean Corpuscular Volume 100.8 fL (83.0-100.0); Platelet Count 337 K/mcL (140-400); Red Blood Count 3.74 M/mcL (4.19-5.50); Red Cell Distribution Width 15.4 % (11.5-14.5); White Blood Count 6.7 K/mcL (4.3-11.1)
[2019-11-12 06:57] LABS: BUN/Creatinine Ratio 18 (6-26); Blood Urea Nitrogen 22 mg/dL (8-23); Calcium 9.3 mg/dL (8.6-10.3); Carbon Dioxide 27 mEq/L (23-29); Chloride 102 mEq/L (98-107); Glucose 106 mg/dL (70-105); Osmolality,Calculated 288 (280-300); Sodium 137 mEq/L (136-145); eGFR For African Americans > 60 (> 60); eGFR For Non-African Americans 60 (> 60)
[2019-11-12] MEDS: FLUoxetine 20 MG CAPSULE PO SCH (08:33)
[2019-11-12] MEDS: Aspirin Enteric Coated 81 MG Tablet PO SCH (08:34)
[2019-11-12] MEDS: Nicotine 21 MG PATCH.TD24 TD SCH (08:34)
[2019-11-12] MEDS ORDERED: Metoprolol XL (24 HR) Succ 25 MG TAB.ER.24H PO SCH (09:00)
[2019-11-12 11:46] VITALS: BP 135/86
== END 2019-11-12 15:14 | disposition home or self-care (01) ==
LOC: 3BNU 07:30 → EMEROOARM 07:30 → 3BNU 17:40
PROVIDERS: ADMIT Internal Medicine; ATTEND Internal Medicine

== ENCOUNTER 2020-07-11 17:56 | Observation (INO) ==
[2020-07-11] MEDS ORDERED: Naloxone 0.4 MG/ML INJ IVP PRN (19:56)
[2020-07-11] MEDS ORDERED: Ondansetron 4 MG/2 ML VIAL IVP PRN (19:56)
[2020-07-11 22:53] LABS: Basophils # 0.1 K/mcL (0.0-0.2); Basophils % 0.6 %; Eosinophils # 0.1 K/mcL (0.0-0.6); Eosinophils % 1.7 %; Hematocrit 42.9 % (37.5-50.1); Hemoglobin 14.5 g/dL (12.9-16.9); Immature Granulocytes % 0.5 % (0-4); Lymphocytes # 2.3 K/mcL (0.6-4.6); Lymphocytes % 29.8 %; Mean Corpuscular HGB Conc 33.8 g/dL (31.6-35.5); Mean Corpuscular Hemoglobin 33.8 pg (28.0-33.3); Mean Platelet Volume 9.6 fL (9.4-12.4); Monocytes # 0.7 K/mcL (0.0-1.3); Monocytes % 8.3 %; Neutrophils # 4.6 K/mcL (1.6-8.9); Platelet Count 263 K/mcL (140-400); Red Blood Count 4.29 M/mcL (4.19-5.50); Red Cell Distribution Width 12.5 % (11.5-14.5); Segmented Neutrophils % 59.1 %; White Blood Count 7.9 K/mcL (4.3-11.1)
[2020-07-12] MEDS ORDERED: *HR* LORazepam 2 MG/ML VIAL IVP PRN ×3 (03:34)
[2020-07-12] MEDS ORDERED: Thiamine (B-1) 100 MG, Folic Acid 1 MG, MVI, adult with vitamin K 10 ML in 0.9 % Sodi... IVPB SCH (04:00)
[2020-07-12 04:33] LABS: Hematocrit 43.5 % (37.5-50.1); Hemoglobin 14.3 g/dL (12.9-16.9); Mean Corpuscular HGB Conc 32.9 g/dL (31.6-35.5); Mean Corpuscular Hemoglobin 33.3 pg (28.0-33.3); Mean Corpuscular Volume 101.2 fL (83.0-100.0); Mean Platelet Volume 9.8 fL (9.4-12.4); Platelet Count 244 K/mcL (140-400); Red Cell Distribution Width 12.6 % (11.5-14.5); White Blood Count 7.8 K/mcL (4.3-11.1)
[2020-07-12 04:48] LABS: BUN/Creatinine Ratio 13 (6-26); Blood Urea Nitrogen 13 mg/dL (8-23); Calcium 8.7 mg/dL (8.6-10.3); Carbon Dioxide 21 mEq/L (23-29); Chloride 106 mEq/L (98-107); Glucose 82 mg/dL (70-105); Magnesium 1.9 mg/dL (1.6-2.6); Osmolality,Calculated 281 (280-300); Phosphorous 3.3 mg/dL (2.7-4.5); Potassium 3.9 mEq/L (3.5-5.1); Sodium 136 mEq/L (136-145); eGFR For African Americans > 60 (> 60); eGFR For Non-African Americans > 60 (> 60)
[2020-07-12] MEDS ORDERED: Pantoprazole 40 MG VIAL IVP SCH (06:00)
[2020-07-12] MEDS ORDERED: Acetaminophen IV 1,000 MG/100 ML INFUS..BTL IVPB ONE (23:59)
[2020-07-13 03:19] LABS: Hematocrit 40.8 % (37.5-50.1); Hemoglobin 13.8 g/dL (12.9-16.9)
[2020-07-13] MEDS ORDERED: Lidocaine -MPF 2% 2 ML VIAL ONE (09:06)
[2020-07-13] MEDS ORDERED: 0.9 % Sodium Chloride 1,000 ML IVC SCH (09:15)
[2020-07-13] MEDS ORDERED: Metoprolol XL (24 HR) Succ 50 MG TAB.ER.24H PO SCH (11:30)
[2020-07-13 16:37] VITALS: BP 141/80
== END 2020-07-13 12:38 | disposition home or self-care (01) ==
LOC: 3ANU → SUATTDRO 19:01
PROVIDERS: ADMIT Internal Medicine; ATTEND Internal Medicine

== ENCOUNTER 2020-10-31 19:23 | Inpatient (IN) ==
[2020-10-31] MEDS ORDERED: 0.9 % Sodium Chloride 1,000 ML IVC ONE ×2 (19:53→20:48)
[2020-10-31 20:17] LABS: Prothrombin Time 11.8 Seconds (9.4-12.1)
[2020-10-31 20:18] LABS: Basophils # 0.1 K/mcL (0.0-0.2); Basophils % 0.7 %; Eosinophils # 0.1 K/mcL (0.0-0.6); Eosinophils % 1.5 %; Hematocrit 47.3 % (37.5-50.1); Hemoglobin 15.6 g/dL (12.9-16.9); Immature Granulocytes % 0.3 % (0-4); Lymphocytes # 1.7 K/mcL (0.6-4.6); Lymphocytes % 18.8 %; Mean Corpuscular Hemoglobin 33.6 pg (28.0-33.3); Mean Corpuscular Volume 101.9 fL (83.0-100.0); Mean Platelet Volume 10.1 fL (9.4-12.4); Monocytes # 0.8 K/mcL (0.0-1.3); Monocytes % 8.5 %; Neutrophils # 6.2 K/mcL (1.6-8.9); Platelet Count 252 K/mcL (140-400); Red Blood Count 4.64 M/mcL (4.19-5.50); Red Cell Distribution Width 14.2 % (11.5-14.5); Segmented Neutrophils % 70.2 %; White Blood Count 8.8 K/mcL (4.3-11.1)
[2020-10-31 20:19] LABS: Activated Partial Thrombo Time 24.7 Seconds (26.0-36.0)
[2020-10-31 20:31] LABS: Alanine Aminotransferase 28 Units/L (7-52); Albumin 3.8 g/dL (3.5-5.7); Albumin/Globulin Ratio 1.3 (1.1-2.2); Alkaline Phosphatase 54 Units/L (34-104); Aspartate Amino Transferase 25 Units/L (13-39); BUN/Creatinine Ratio 9 (6-26); Bilirubin,Total 0.3 mg/dL (0.3-1.0); Blood Urea Nitrogen 14 mg/dL (8-23); Calcium 8.7 mg/dL (8.6-10.3); Carbon Dioxide 21 mEq/L (23-29); Chloride 104 mEq/L (98-107); Creatine Kinase 36 Units/L (30-223); Globulin 2.9 g/dL (2.4-3.5); Glucose 105 mg/dL (70-105); Osmolality,Calculated 285 (280-300); Potassium 3.9 mEq/L (3.5-5.1); Sodium 137 mEq/L (136-145); Total Protein 6.7 g/dL (6.4-8.9); Troponin I < 0.03 ng/mL (< 0.04); eGFR For African Americans 52 (> 60); eGFR For Non-African Americans 43 (> 60)
[2020-10-31 21:39] LABS: Bilirubin,Urine Negative (Negative); Blood,Urine Negative (Negative); Clarity,Urine Clear (Clear); Color,Urine Light-Yellow (Yellow); Glucose,Urine (UA) Normal (Normal); Ketones,Urine Negative (Negative); Leukocyte Esterase,Urine Negative (Negative); Nitrite,Urine Negative (Negative); PH,Urine 6.5 pH Units (5.0-8.0); Protein,Urine Trace mg/dL (Neg-Trace); Specific Gravity,Urine 1.013 (1.010-1.025); Urobilinogen,Urine Normal (Normal)
[2020-10-31 21:59] LABS: Amphetamine Screen,Urine Negative ng/mL (Cutoff=1000); Barbiturate Screen,Urine Negative ng/mL (Cutoff=200); Benzodiazepines Screen,Urine Negative ng/mL (Cutoff=200); Cannabinoid Screen,Urine Positive ng/mL (Cutoff = 50); Cocaine Screen,Urine Negative ng/mL (Cutoff= 300); Opiate Screen,Urine Negative ng/mL (Cutoff=300); Phencyclidine Screen,Urine Negative ng/mL (Cutoff=25)
[2020-10-31] MEDS ORDERED: Mag Hydrox/Al Hydrox/Simeth 30 ML UDC PO PRN (22:37)
[2020-10-31] MEDS ORDERED: Naloxone 0.4 MG/ML INJ IVP PRN (22:37)
[2020-10-31] MEDS ORDERED: Perflutren Lipid Microsphere 1.3 ML in 0.9 % Sodium Chloride 8.7 ML IVP PRN (22:39)
[2020-10-31] MEDS ORDERED: *HR* LORazepam 2 MG/ML VIAL IVP PRN ×3 (22:40)
[2020-10-31] MEDS ORDERED: 0.9 % Sodium Chloride 1,000 ML IVC SCH (22:45)
[2020-10-31 23:34] LABS: Ethanol 133 mg/dL (Less than 10); Magnesium 2.2 mg/dL (1.6-2.6); Phosphorous 3.1 mg/dL (2.7-4.5)
[2020-11-01 00:41] LABS: Basophils # 0.1 K/mcL (0.0-0.2); Basophils % 0.7 %; Eosinophils # 0.1 K/mcL (0.0-0.6); Eosinophils % 0.8 %; Hematocrit 45.4 % (37.5-50.1); Hemoglobin 14.6 g/dL (12.9-16.9); Immature Granulocytes % 0.3 % (0-4); Lymphocytes # 1.6 K/mcL (0.6-4.6); Lymphocytes % 21.1 %; Mean Corpuscular HGB Conc 32.2 g/dL (31.6-35.5); Mean Corpuscular Hemoglobin 33.1 pg (28.0-33.3); Mean Corpuscular Volume 102.9 fL (83.0-100.0); Mean Platelet Volume 10.1 fL (9.4-12.4); Monocytes # 0.4 K/mcL (0.0-1.3); Monocytes % 5.3 %; Neutrophils # 5.5 K/mcL (1.6-8.9); Platelet Count 243 K/mcL (140-400); Red Blood Count 4.41 M/mcL (4.19-5.50); Red Cell Distribution Width 14.4 % (11.5-14.5); Segmented Neutrophils % 71.8 %; White Blood Count 7.6 K/mcL (4.3-11.1)
[2020-11-01 00:46] LABS: Alanine Aminotransferase 26 Units/L (7-52); Albumin 3.6 g/dL (3.5-5.7); Albumin/Globulin Ratio 1.3 (1.1-2.2); Alkaline Phosphatase 52 Units/L (34-104); Aspartate Amino Transferase 23 Units/L (13-39); BUN/Creatinine Ratio 10 (6-26); Bilirubin,Total 0.3 mg/dL (0.3-1.0); Blood Urea Nitrogen 13 mg/dL (8-23); Carbon Dioxide 22 mEq/L (23-29); Chloride 107 mEq/L (98-107); Globulin 2.7 g/dL (2.4-3.5); Glucose 139 mg/dL (70-105); Osmolality,Calculated 286 (280-300); Potassium 3.9 mEq/L (3.5-5.1); Sodium 137 mEq/L (136-145); Total Protein 6.3 g/dL (6.4-8.9); eGFR For African Americans > 60 (> 60); eGFR For Non-African Americans 54 (> 60)
[2020-11-01] MEDS: FLUoxetine 20 MG CAPSULE PO SCH (08:43)
[2020-11-01] MEDS ORDERED: Metoprolol XL (24 HR) Succ 50 MG TAB.ER.24H PO SCH (09:00)
[2020-11-01] MEDS ORDERED: *HR* Rivaroxaban 10 MG TABLET PO SCH (09:00)
[2020-11-01] MEDS ORDERED: *HR* Heparin 5,000 UNIT/ML VIAL IVP ONE (11:05)
[2020-11-01] MEDS ORDERED: *HR* Heparin 5,000 UNIT/ML VIAL IVP PRN ×4 (11:05→21:00)
[2020-11-01] MEDS ORDERED: Heparin 25,000UNIT/250ML 1/2NS 25,000 UNIT/250 ML IV.SOLN IVC SCH (11:15)
[2020-11-01] MEDS ORDERED: Metoprolol XL (24 HR) Succ 25 MG TAB.ER.24H PO ONE (11:15)
[2020-11-01] MEDS ORDERED: Acetaminophen IV 500 MG/50 ML BAG IVPB ONE (11:31)
[2020-11-01 11:56] LABS: Hematocrit 44.2 % (37.5-50.1); Hemoglobin 14.9 g/dL (12.9-16.9); Mean Corpuscular HGB Conc 33.7 g/dL (31.6-35.5); Mean Corpuscular Hemoglobin 34.4 pg (28.0-33.3); Mean Corpuscular Volume 102.1 fL (83.0-100.0); Mean Platelet Volume 10.1 fL (9.4-12.4); Platelet Count 239 K/mcL (140-400); Red Blood Count 4.33 M/mcL (4.19-5.50)
[2020-11-01 12:07] LABS: Heparin anti-factor XA UFH > 2.00 IU/mL (0.30-0.70); Prothrombin Time 22.5 Seconds (9.4-12.1)
[2020-11-01] MEDS: Ondansetron ODT 4 MG TAB.RAPDIS SL PRN (13:21)
[2020-11-01] MEDS: Thiamine (B-1) 100 MG, Folic Acid 1 MG, MVI, adult with vitamin K 10 ML in 0.9 % Sodi... IVPB SCH (17:52)
[2020-11-01] MEDS ORDERED: Warfarin perPT PO PRN (18:00)
[2020-11-01] MEDS: Heparin 25,000UNIT/250ML 1/2NS 25,000 UNIT/250 ML IV.SOLN IVC SCH (21:43)
[2020-11-02] MEDS: Acetaminophen 325 MG TABLET PO PRN (01:35)
[2020-11-02 04:22] LABS: INR 1.1; Prothrombin Time 13.1 Seconds (9.4-12.1)
[2020-11-02 04:33] LABS: BUN/Creatinine Ratio 14 (6-26); Blood Urea Nitrogen 16 mg/dL (8-23); Calcium 8.3 mg/dL (8.6-10.3); Carbon Dioxide 24 mEq/L (23-29); Chloride 104 mEq/L (98-107); Glucose 96 mg/dL (70-105); Osmolality,Calculated 281 (280-300); Sodium 135 mEq/L (136-145); eGFR For African Americans > 60 (> 60); eGFR For Non-African Americans > 60 (> 60)
[2020-11-02] MEDS: FLUoxetine 20 MG CAPSULE PO SCH (07:45)
[2020-11-02] MEDS ORDERED: Metoprolol XL (24 HR) Succ 50 MG TAB.ER.24H PO SCH (09:00)
[2020-11-02 12:37] LABS: Basophils # 0.1 K/mcL (0.0-0.2); Basophils % 0.6 %; Eosinophils # 0.1 K/mcL (0.0-0.6); Eosinophils % 1.7 %; Hematocrit 43.7 % (37.5-50.1); Hemoglobin 14.5 g/dL (12.9-16.9); Immature Granulocytes % 0.4 % (0-4); Lymphocytes # 1.2 K/mcL (0.6-4.6); Lymphocytes % 14.5 %; Mean Corpuscular HGB Conc 33.2 g/dL (31.6-35.5); Mean Corpuscular Hemoglobin 33.6 pg (28.0-33.3); Mean Corpuscular Volume 101.2 fL (83.0-100.0); Mean Platelet Volume 10.2 fL (9.4-12.4); Monocytes # 0.7 K/mcL (0.0-1.3); Monocytes % 8.6 %; Neutrophils # 5.9 K/mcL (1.6-8.9); Platelet Count 230 K/mcL (140-400); Red Blood Count 4.32 M/mcL (4.19-5.50); Red Cell Distribution Width 14.3 % (11.5-14.5); Segmented Neutrophils % 74.2 %
[2020-11-02] MEDS: lisinopriL 5 MG TABLET PO SCH (14:47)
[2020-11-02] MEDS: Thiamine (B-1) 100 MG, Folic Acid 1 MG, MVI, adult with vitamin K 10 ML in 0.9 % Sodi... IVPB SCH (17:13)
[2020-11-02] MEDS: Heparin 25,000UNIT/250ML 1/2NS 25,000 UNIT/250 ML IV.SOLN IVC SCH (17:14)
[2020-11-02] MEDS ORDERED: *HR* Warfarin 5 MG TABLET PO ONE (18:00)
[2020-11-02] MEDS: Metoprolol XL (24 HR) Succ 50 MG TAB.ER.24H PO SCH (21:15)
[2020-11-03 06:03] LABS: Basophils # 0.1 K/mcL (0.0-0.2); Basophils % 0.6 %; Eosinophils # 0.2 K/mcL (0.0-0.6); Eosinophils % 2.1 %; Hemoglobin 14.4 g/dL (12.9-16.9); Immature Granulocytes % 0.4 % (0-4); Lymphocytes # 1.8 K/mcL (0.6-4.6); Lymphocytes % 22.6 %; Mean Corpuscular HGB Conc 33.5 g/dL (31.6-35.5); Mean Corpuscular Hemoglobin 33.3 pg (28.0-33.3); Mean Corpuscular Volume 99.5 fL (83.0-100.0); Mean Platelet Volume 10.3 fL (9.4-12.4); Monocytes # 0.8 K/mcL (0.0-1.3); Monocytes % 10.3 %; Platelet Count 219 K/mcL (140-400); Red Blood Count 4.32 M/mcL (4.19-5.50); Red Cell Distribution Width 13.9 % (11.5-14.5); White Blood Count 7.8 K/mcL (4.3-11.1)
[2020-11-03 06:04] LABS: INR 1.1; Prothrombin Time 12.3 Seconds (9.4-12.1)
[2020-11-03 06:16] LABS: BUN/Creatinine Ratio 15 (6-26); Blood Urea Nitrogen 18 mg/dL (8-23); Carbon Dioxide 25 mEq/L (23-29); Chloride 102 mEq/L (98-107); Glucose 95 mg/dL (70-105); Osmolality,Calculated 282 (280-300); Potassium 3.9 mEq/L (3.5-5.1); Sodium 135 mEq/L (136-145); eGFR For African Americans > 60 (> 60); eGFR For Non-African Americans > 60 (> 60)
[2020-11-03] MEDS: lisinopriL 5 MG TABLET PO SCH (09:35)
[2020-11-03] MEDS: FLUoxetine 20 MG CAPSULE PO SCH (09:35)
[2020-11-03] MEDS: Metoprolol XL (24 HR) Succ 50 MG TAB.ER.24H PO SCH ×2 (09:40→20:21)
[2020-11-03] MEDS: Acetaminophen 325 MG TABLET PO PRN ×2 (11:32→20:22)
[2020-11-03] MEDS: Heparin 25,000UNIT/250ML 1/2NS 25,000 UNIT/250 ML IV.SOLN IVC SCH (16:02)
[2020-11-03] MEDS ORDERED: *HR* Warfarin 5 MG TABLET PO ONE (18:00)
[2020-11-03] MEDS: Thiamine (B-1) 100 MG, Folic Acid 1 MG, MVI, adult with vitamin K 10 ML in 0.9 % Sodi... IVPB SCH (18:34)
[2020-11-04 06:07] LABS: Basophils % 0.6 %; Eosinophils # 0.1 K/mcL (0.0-0.6); Eosinophils % 1.9 %; Hemoglobin 14.9 g/dL (12.9-16.9); Immature Granulocytes % 0.4 % (0-4); Lymphocytes # 1.7 K/mcL (0.6-4.6); Lymphocytes % 24.6 %; Mean Corpuscular HGB Conc 33.9 g/dL (31.6-35.5); Mean Corpuscular Hemoglobin 34.4 pg (28.0-33.3); Mean Corpuscular Volume 101.6 fL (83.0-100.0); Mean Platelet Volume 10.5 fL (9.4-12.4); Monocytes # 0.7 K/mcL (0.0-1.3); Monocytes % 10.7 %; Neutrophils # 4.2 K/mcL (1.6-8.9); Platelet Count 222 K/mcL (140-400); Red Blood Count 4.33 M/mcL (4.19-5.50); Red Cell Distribution Width 13.8 % (11.5-14.5); Segmented Neutrophils % 61.8 %; White Blood Count 6.8 K/mcL (4.3-11.1)
[2020-11-04 06:11] LABS: INR 1.2; Prothrombin Time 13.3 Seconds (9.4-12.1)
[2020-11-04 06:28] LABS: BUN/Creatinine Ratio 16 (6-26); Blood Urea Nitrogen 20 mg/dL (8-23); Calcium 9.1 mg/dL (8.6-10.3); Carbon Dioxide 26 mEq/L (23-29); Chloride 102 mEq/L (98-107); Glucose 101 mg/dL (70-105); Osmolality,Calculated 283 (280-300); Potassium 3.9 mEq/L (3.5-5.1); Sodium 135 mEq/L (136-145); eGFR For African Americans > 60 (> 60); eGFR For Non-African Americans 57 (> 60)
[2020-11-04] MEDS: Metoprolol XL (24 HR) Succ 50 MG TAB.ER.24H PO SCH ×2 (08:43→20:20)
[2020-11-04] MEDS: FLUoxetine 20 MG CAPSULE PO SCH (08:43)
[2020-11-04] MEDS: lisinopriL 5 MG TABLET PO SCH (08:44)
[2020-11-04] MEDS: Heparin 25,000UNIT/250ML 1/2NS 25,000 UNIT/250 ML IV.SOLN IVC SCH (12:18)
[2020-11-04] MEDS: Acetaminophen 325 MG TABLET PO PRN ×2 (15:23→21:59)
[2020-11-04] MEDS ORDERED: *HR* Warfarin 5 MG TABLET PO ONE (18:00)
[2020-11-05 05:58] LABS: Basophils # 0.1 K/mcL (0.0-0.2); Basophils % 0.8 %; Eosinophils # 0.2 K/mcL (0.0-0.6); Eosinophils % 2.3 %; Hematocrit 47.2 % (37.5-50.1); Hemoglobin 15.7 g/dL (12.9-16.9); Immature Granulocytes % 0.5 % (0-4); Lymphocytes # 2.1 K/mcL (0.6-4.6); Lymphocytes % 32.2 %; Mean Corpuscular HGB Conc 33.3 g/dL (31.6-35.5); Mean Corpuscular Volume 102.2 fL (83.0-100.0); Mean Platelet Volume 10.4 fL (9.4-12.4); Monocytes # 0.9 K/mcL (0.0-1.3); Monocytes % 13.8 %; Neutrophils # 3.3 K/mcL (1.6-8.9); Platelet Count 212 K/mcL (140-400); Red Blood Count 4.62 M/mcL (4.19-5.50); Red Cell Distribution Width 13.9 % (11.5-14.5); Segmented Neutrophils % 50.4 %; White Blood Count 6.6 K/mcL (4.3-11.1)
[2020-11-05 05:59] LABS: INR 1.5; Prothrombin Time 16.9 Seconds (9.4-12.1)
[2020-11-05 06:01] LABS: Activated Partial Thrombo Time 102.9 Seconds (26.0-36.0)
[2020-11-05 06:08] LABS: BUN/Creatinine Ratio 16 (6-26); Blood Urea Nitrogen 21 mg/dL (8-23); Calcium 9.4 mg/dL (8.6-10.3); Carbon Dioxide 27 mEq/L (23-29); Chloride 102 mEq/L (98-107); Glucose 102 mg/dL (70-105); Osmolality,Calculated 285 (280-300); Potassium 3.9 mEq/L (3.5-5.1); Sodium 136 mEq/L (136-145); eGFR For African Americans > 60 (> 60); eGFR For Non-African Americans 56 (> 60)
[2020-11-05] MEDS: FLUoxetine 20 MG CAPSULE PO SCH (09:19)
[2020-11-05] MEDS: Metoprolol XL (24 HR) Succ 50 MG TAB.ER.24H PO SCH ×2 (09:19→19:49)
[2020-11-05] MEDS: lisinopriL 5 MG TABLET PO SCH (09:20)
[2020-11-05] MEDS: Heparin 25,000UNIT/250ML 1/2NS 25,000 UNIT/250 ML IV.SOLN IVC SCH ×2 (10:36→23:42)
[2020-11-05] MEDS ORDERED: *HR* Warfarin 5 MG TABLET PO ONE (18:00)
[2020-11-05] MEDS: Acetaminophen 325 MG TABLET PO PRN (19:49)
[2020-11-06 06:11] LABS: Basophils # 0.1 K/mcL (0.0-0.2); Basophils % 0.6 %; Eosinophils # 0.1 K/mcL (0.0-0.6); Eosinophils % 1.7 %; Hematocrit 50.4 % (37.5-50.1); Hemoglobin 16.8 g/dL (12.9-16.9); Immature Granulocytes % 0.6 % (0-4); Lymphocytes # 2.1 K/mcL (0.6-4.6); Lymphocytes % 25.3 %; Mean Corpuscular HGB Conc 33.3 g/dL (31.6-35.5); Mean Corpuscular Hemoglobin 34.1 pg (28.0-33.3); Mean Corpuscular Volume 102.4 fL (83.0-100.0); Mean Platelet Volume 10.5 fL (9.4-12.4); Monocytes # 0.9 K/mcL (0.0-1.3); Monocytes % 10.9 %; Platelet Count 256 K/mcL (140-400); Red Blood Count 4.92 M/mcL (4.19-5.50); Red Cell Distribution Width 14.1 % (11.5-14.5); Segmented Neutrophils % 60.9 %; White Blood Count 8.3 K/mcL (4.3-11.1)
[2020-11-06 06:16] LABS: INR 1.9; Prothrombin Time 21.2 Seconds (9.4-12.1)
[2020-11-06 06:19] LABS: Activated Partial Thrombo Time 58.8 Seconds (26.0-36.0)
[2020-11-06] MEDS: lisinopriL 5 MG TABLET PO SCH (08:26)
[2020-11-06] MEDS: FLUoxetine 20 MG CAPSULE PO SCH (08:28)
[2020-11-06] MEDS: Metoprolol XL (24 HR) Succ 50 MG TAB.ER.24H PO SCH ×2 (08:29→23:23)
[2020-11-06 08:33] LABS: INR 2.2; Prothrombin Time 24.9 Seconds (9.4-12.1)
[2020-11-06] MEDS: Acetaminophen 325 MG TABLET PO PRN (11:09)
[2020-11-06] MEDS: Ondansetron ODT 4 MG TAB.RAPDIS SL PRN ×2 (11:10→19:38)
[2020-11-06] MEDS: Heparin 25,000UNIT/250ML 1/2NS 25,000 UNIT/250 ML IV.SOLN IVC SCH (14:04)
[2020-11-06] MEDS ORDERED: *HR* Warfarin 5 MG TABLET PO ONE (18:00)
[2020-11-06] MEDS ORDERED: Acetaminophen IV 1,000 MG/100 ML BAG IVPB ONE (21:52)
[2020-11-06] MEDS ORDERED: Isovue-370 500 ML BOTTLE IVP ONE (21:52)
[2020-11-06] MEDS ORDERED: *HR* Promethazine 25 MG/ML VIAL IM PRN (21:53)
[2020-11-07] MEDS: Sennosides/Docusate Sodium TABLET PO SCH ×2 (01:42→07:42)
[2020-11-07 07:26] LABS: INR 2.3; Prothrombin Time 26.5 Seconds (9.4-12.1)
[2020-11-07 07:36] LABS: Basophils # 0.1 K/mcL (0.0-0.2); Basophils % 0.4 %; Eosinophils % 0.1 %; Hematocrit 47.3 % (37.5-50.1); Hemoglobin 15.7 g/dL (12.9-16.9); Immature Granulocytes % 0.5 % (0-4); Lymphocytes # 1.3 K/mcL (0.6-4.6); Lymphocytes % 9.6 %; Mean Corpuscular HGB Conc 33.2 g/dL (31.6-35.5); Mean Corpuscular Hemoglobin 33.4 pg (28.0-33.3); Mean Corpuscular Volume 100.6 fL (83.0-100.0); Mean Platelet Volume 10.5 fL (9.4-12.4); Monocytes # 1.3 K/mcL (0.0-1.3); Monocytes % 9.7 %; Neutrophils # 10.7 K/mcL (1.6-8.9); Platelet Count 232 K/mcL (140-400); Red Cell Distribution Width 13.7 % (11.5-14.5); Segmented Neutrophils % 79.7 %
[2020-11-07] MEDS: lisinopriL 5 MG TABLET PO SCH (07:42)
[2020-11-07] MEDS: Metoprolol XL (24 HR) Succ 50 MG TAB.ER.24H PO SCH (07:43)
[2020-11-07] MEDS: FLUoxetine 20 MG CAPSULE PO SCH (07:43)
[2020-11-07 07:55] LABS: BUN/Creatinine Ratio 18 (6-26); Blood Urea Nitrogen 22 mg/dL (8-23); Calcium 9.6 mg/dL (8.6-10.3); Carbon Dioxide 25 mEq/L (23-29); Chloride 102 mEq/L (98-107); Glucose 114 mg/dL (70-105); Osmolality,Calculated 284 (280-300); Potassium 4.1 mEq/L (3.5-5.1); Sodium 135 mEq/L (136-145); eGFR For African Americans > 60 (> 60); eGFR For Non-African Americans 59 (> 60)
[2020-11-07 07:58] LABS: White Blood Count 13.4 K/mcL (4.3-11.1)
[2020-11-07] MEDS ORDERED: *HR* Labetalol 20 MG/4 ML SYRINGE IVP ONE (08:23)
[2020-11-07 09:57] VITALS: BP 171/100
[2020-11-07] MEDS ORDERED: *HR* Warfarin 5 MG TABLET PO ONE (18:00)
== END 2020-11-07 11:30 | disposition home or self-care (01) | DRG 897 ==
LOC: EMEROOARM 19:23 → 3ANU 19:23 → SUATTDRO 22:25 → 3ANU 22:46 → SUATTDRO 11-02 18:09
PROVIDERS: ADMIT Family Medicine; ATTEND Family Medicine

== ENCOUNTER 2021-02-23 16:50 | Observation (INO) ==
[2021-02-23] MEDS ORDERED: Naloxone 0.4 MG/ML INJ IVP PRN (18:43)
[2021-02-23] MEDS ORDERED: Ondansetron 4 MG/2 ML VIAL IVP PRN (18:43)
[2021-02-23] MEDS ORDERED: Melatonin 3 MG TABLET PO PRN (21:00)
[2021-02-23] MEDS ORDERED: *HR* LORazepam 2 MG/ML VIAL IVP PRN ×3 (22:02)
[2021-02-23] MEDS ORDERED: Nitroglycerin 0.4 MG TAB.SUBL SL PRN (22:13)
[2021-02-23] MEDS: Metoprolol XL (24 HR) Succ 50 MG TAB.ER.24H PO SCH (22:49)
[2021-02-23] MEDS: Folic Acid 1 MG TABLET PO SCH (22:49)
[2021-02-23] MEDS: Thiamine (B-1) 100 MG TABLET PO SCH (22:49)
[2021-02-23] MEDS: Apixaban 5 MG TABLET PO SCH (22:50)
[2021-02-24 05:22] LABS: Basophils # 0.1 K/mcL (0.0-0.2); Basophils % 0.9 %; Eosinophils # 0.2 K/mcL (0.0-0.6); Eosinophils % 1.8 %; Hematocrit 45.3 % (37.5-50.1); Hemoglobin 15.1 g/dL (12.9-16.9); Immature Granulocytes % 0.4 % (0-4); Lymphocytes # 1.4 K/mcL (0.6-4.6); Mean Corpuscular HGB Conc 33.3 g/dL (31.6-35.5); Mean Corpuscular Volume 105.1 fL (83.0-100.0); Mean Platelet Volume 9.8 fL (9.4-12.4); Monocytes # 0.9 K/mcL (0.0-1.3); Monocytes % 10.4 %; Neutrophils # 5.9 K/mcL (1.6-8.9); Platelet Count 282 K/mcL (140-400); Red Blood Count 4.31 M/mcL (4.19-5.50); Red Cell Distribution Width 14.1 % (11.5-14.5); Segmented Neutrophils % 69.5 %; White Blood Count 8.5 K/mcL (4.3-11.1)
[2021-02-24 05:46] LABS: BUN/Creatinine Ratio 15 (6-26); Blood Urea Nitrogen 17 mg/dL (8-23); Calcium 8.8 mg/dL (8.6-10.3); Carbon Dioxide 24 mEq/L (23-29); Chloride 104 mEq/L (98-107); Chol/HDL Ratio 4.3 (0-4.9); Cholesterol 188 mg/dL (< 200); Glucose 95 mg/dL (70-105); HDL Cholesterol 44 mg/dL (40-59); LDL Cholesterol,Calculated 100 mg/dL (< 100); Osmolality,Calculated 283 (280-300); Potassium 3.9 mEq/L (3.5-5.1); Sodium 136 mEq/L (136-145); Triglycerides 219 mg/dL (< 150); Troponin I < 0.03 ng/mL (< 0.04); eGFR For African Americans > 60 (> 60); eGFR For Non-African Americans > 60 (> 60)
[2021-02-24] MEDS ORDERED: Regadenoson 0.4 MG/5 ML SYRINGE IVP ONE (06:08)
[2021-02-24] MEDS: Folic Acid 1 MG TABLET PO SCH (09:28)
[2021-02-24] MEDS: Aspirin 81 MG TAB.CHEW PO SCH (09:28)
[2021-02-24] MEDS: Metoprolol XL (24 HR) Succ 50 MG TAB.ER.24H PO SCH ×2 (09:28→20:11)
[2021-02-24] MEDS: FLUoxetine 20 MG CAPSULE PO SCH (09:28)
[2021-02-24] MEDS: Apixaban 5 MG TABLET PO SCH ×2 (09:28→20:11)
[2021-02-24] MEDS: Thiamine (B-1) 100 MG TABLET PO SCH (09:28)
[2021-02-24] MEDS: Acetaminophen 325 MG TABLET PO PRN (14:36)
[2021-02-25 02:46] LABS: Hematocrit 43.4 % (37.5-50.1); Hemoglobin 14.6 g/dL (12.9-16.9); Mean Corpuscular HGB Conc 33.6 g/dL (31.6-35.5); Mean Corpuscular Hemoglobin 34.8 pg (28.0-33.3); Mean Corpuscular Volume 103.3 fL (83.0-100.0); Mean Platelet Volume 9.7 fL (9.4-12.4); Platelet Count 273 K/mcL (140-400); Red Cell Distribution Width 14.1 % (11.5-14.5); White Blood Count 7.7 K/mcL (4.3-11.1)
[2021-02-25 03:06] LABS: BUN/Creatinine Ratio 16 (6-26); Blood Urea Nitrogen 18 mg/dL (8-23); Calcium 8.8 mg/dL (8.6-10.3); Carbon Dioxide 27 mEq/L (23-29); Chloride 103 mEq/L (98-107); Glucose 97 mg/dL (70-105); Magnesium 1.9 mg/dL (1.6-2.6); Osmolality,Calculated 284 (280-300); Phosphorous 3.8 mg/dL (2.7-4.5); Potassium 3.7 mEq/L (3.5-5.1); Sodium 136 mEq/L (136-145); eGFR For African Americans > 60 (> 60); eGFR For Non-African Americans > 60 (> 60)
[2021-02-25] MEDS: Apixaban 5 MG TABLET PO SCH ×2 (07:39→20:26)
[2021-02-25] MEDS: Folic Acid 1 MG TABLET PO SCH (07:39)
[2021-02-25] MEDS: Metoprolol XL (24 HR) Succ 50 MG TAB.ER.24H PO SCH ×2 (07:39→20:26)
[2021-02-25] MEDS: Spironolactone 12.5 MG TABLET PO SCH (07:40)
[2021-02-25] MEDS: Aspirin 81 MG TAB.CHEW PO SCH (07:40)
[2021-02-25] MEDS: Thiamine (B-1) 100 MG TABLET PO SCH (07:40)
[2021-02-25] MEDS: FLUoxetine 20 MG CAPSULE PO SCH (07:40)
[2021-02-25] MEDS ORDERED: Perflutren Lipid Microsphere 1.3 ML in 0.9 % Sodium Chloride 8.7 ML IVP PRN (14:39)
[2021-02-25] MEDS: Acetaminophen 325 MG TABLET PO PRN ×2 (15:19→23:08)
[2021-02-26 03:32] LABS: Hematocrit 44.4 % (37.5-50.1); Hemoglobin 14.7 g/dL (12.9-16.9); Mean Corpuscular HGB Conc 33.1 g/dL (31.6-35.5); Mean Corpuscular Hemoglobin 34.5 pg (28.0-33.3); Mean Corpuscular Volume 104.2 fL (83.0-100.0); Mean Platelet Volume 9.8 fL (9.4-12.4); Platelet Count 268 K/mcL (140-400); Red Blood Count 4.26 M/mcL (4.19-5.50); Red Cell Distribution Width 13.8 % (11.5-14.5); White Blood Count 8.5 K/mcL (4.3-11.1)
[2021-02-26 03:50] LABS: BUN/Creatinine Ratio 18 (6-26); Blood Urea Nitrogen 20 mg/dL (8-23); Calcium 8.6 mg/dL (8.6-10.3); Carbon Dioxide 25 mEq/L (23-29); Chloride 104 mEq/L (98-107); Glucose 102 mg/dL (70-105); Osmolality,Calculated 283 (280-300); Potassium 3.6 mEq/L (3.5-5.1); Sodium 135 mEq/L (136-145); eGFR For African Americans > 60 (> 60); eGFR For Non-African Americans > 60 (> 60)
[2021-02-26] MEDS: Thiamine (B-1) 100 MG TABLET PO SCH (09:10)
[2021-02-26] MEDS: FLUoxetine 20 MG CAPSULE PO SCH (09:11)
[2021-02-26] MEDS: Folic Acid 1 MG TABLET PO SCH (09:11)
[2021-02-26] MEDS: Metoprolol XL (24 HR) Succ 50 MG TAB.ER.24H PO SCH (09:11)
[2021-02-26] MEDS: Spironolactone 12.5 MG TABLET PO SCH (09:11)
[2021-02-26] MEDS: Apixaban 5 MG TABLET PO SCH (09:11)
[2021-02-26] MEDS: Aspirin 81 MG TAB.CHEW PO SCH (09:11)
[2021-02-26 11:33] VITALS: BP 159/98
== END 2021-02-26 14:36 | disposition home or self-care (01) ==
LOC: 2ANU → SUATTDRO 18:04
PROVIDERS: ADMIT Internal Medicine; ATTEND Pharmacist

== ENCOUNTER 2022-01-17 17:37 | Observation (INO) ==
[2022-01-17 18:49] LABS: Basophils # 0.1 K/mcL (0.0-0.2); Basophils % 0.8 %; Eosinophils # 0.2 K/mcL (0.0-0.6); Eosinophils % 2.8 %; Hematocrit 43.6 % (37.5-50.1); Hemoglobin 14.6 g/dL (12.9-16.9); Immature Granulocytes % 0.4 % (0-4); Lymphocytes % 25.8 %; Mean Corpuscular HGB Conc 33.5 g/dL (31.6-35.5); Mean Corpuscular Hemoglobin 33.7 pg (28.0-33.3); Mean Corpuscular Volume 100.7 fL (83.0-100.0); Mean Platelet Volume 10.4 fL (9.4-12.4); Monocytes # 0.6 K/mcL (0.0-1.3); Neutrophils # 4.7 K/mcL (1.6-8.9); Platelet Count 261 K/mcL (140-400); Red Blood Count 4.33 M/mcL (4.19-5.50); Red Cell Distribution Width 13.9 % (11.5-14.5); Segmented Neutrophils % 62.2 %; White Blood Count 7.6 K/mcL (4.3-11.1)
[2022-01-17 18:58] LABS: INR 1.1; Prothrombin Time 12.3 Seconds (9.4-12.1)
[2022-01-17 19:01] LABS: Activated Partial Thrombo Time 34.4 Seconds (26.0-36.0)
[2022-01-17 19:11] LABS: BUN/Creatinine Ratio 10 (6-26); Blood Urea Nitrogen 11 mg/dL (8-23); Calcium 8.7 mg/dL (8.6-10.3); Carbon Dioxide 23 mEq/L (23-29); Chloride 101 mEq/L (98-107); Glucose 82 mg/dL (70-105); Osmolality,Calculated 272 (280-300); Potassium 3.8 mEq/L (3.5-5.1); Sodium 132 mEq/L (136-145); Troponin I 0.03 ng/mL (< 0.04); eGFR For African Americans > 60 (> 60); eGFR For Non-African Americans > 60 (> 60)
[2022-01-17] MEDS ORDERED: carvediloL 25 MG TABLET PO STA (20:44)
[2022-01-17] MEDS ORDERED: Perflutren Lipid Microsphere 1.3 ML in 0.9 % Sodium Chloride 8.7 ML IVP PRN (22:30)
[2022-01-17] MEDS ORDERED: Nitroglycerin 0.4 MG TAB.SUBL SL PRN (22:32)
[2022-01-17] MEDS ORDERED: Morphine Sulfate 2 MG/ML SYRINGE IVP PRN (22:32)
[2022-01-17] MEDS ORDERED: Acetaminophen 325 MG TABLET PO PRN (22:45)
[2022-01-17] MEDS ORDERED: Naloxone 0.4 MG/ML INJ IVP PRN (22:45)
[2022-01-17] MEDS ORDERED: Ondansetron 4 MG/2 ML VIAL IVP PRN (22:45)
[2022-01-17] MEDS ORDERED: *HR* Heparin 5,000 UNIT/ML VIAL IVP PRN ×2 (23:23)
[2022-01-17] MEDS ORDERED: *HR* Heparin 5,000 UNIT/ML VIAL IVP ONE (23:23)
[2022-01-18] MEDS: Heparin 25,000UNIT/250ML 1/2NS 25,000 UNIT/250 ML IV.SOLN IVC SCH (00:38)
[2022-01-18 01:29] LABS: Hematocrit 42.1 % (37.5-50.1); Hemoglobin 14.5 g/dL (12.9-16.9); Mean Corpuscular HGB Conc 34.4 g/dL (31.6-35.5); Mean Corpuscular Hemoglobin 34.3 pg (28.0-33.3); Mean Corpuscular Volume 99.5 fL (83.0-100.0); Mean Platelet Volume 10.7 fL (9.4-12.4); Platelet Count 260 K/mcL (140-400); Red Blood Count 4.23 M/mcL (4.19-5.50); Red Cell Distribution Width 14.1 % (11.5-14.5)
[2022-01-18 01:52] LABS: BUN/Creatinine Ratio 11 (6-26); Blood Urea Nitrogen 13 mg/dL (8-23); Calcium 8.7 mg/dL (8.6-10.3); Carbon Dioxide 24 mEq/L (23-29); Chloride 99 mEq/L (98-107); Chol/HDL Ratio 4.9 (0-4.9); Cholesterol 186 mg/dL (< 200); Glucose 172 mg/dL (70-105); HDL Cholesterol 38 mg/dL (40-59); LDL Cholesterol,Calculated 111 mg/dL (< 100); Osmolality,Calculated 280 (280-300); Potassium 3.6 mEq/L (3.5-5.1); Sodium 133 mEq/L (136-145); Triglycerides 185 mg/dL (< 150); eGFR For African Americans > 60 (> 60); eGFR For Non-African Americans > 60 (> 60)
[2022-01-18 03:05] LABS: Estimated Average Glucose 111 mg/dl; Hemoglobin A1C 5.5 %
[2022-01-18] MEDS ORDERED: Regadenoson 0.4 MG/5 ML SYRINGE IVP ONE (06:23)
[2022-01-18] MEDS: Aspirin Enteric Coated 81 MG Tablet PO SCH (09:20)
[2022-01-18] MEDS ORDERED: Metoprolol 100 MG TABLET PO SCH (11:15)
[2022-01-18] MEDS: Isosorbide MONOnitrate (24 HR) 30 MG TAB.ER.24H PO SCH (12:54)
[2022-01-18] MEDS: Metoprolol XL (24 HR) Succ 50 MG TAB.ER.24H PO SCH (20:27)
[2022-01-19] MEDS: Heparin 25,000UNIT/250ML 1/2NS 25,000 UNIT/250 ML IV.SOLN IVC SCH (00:17)
[2022-01-19 04:17] LABS: Hematocrit 40.1 % (37.5-50.1); Hemoglobin 13.9 g/dL (12.9-16.9); Mean Corpuscular HGB Conc 34.7 g/dL (31.6-35.5); Mean Corpuscular Hemoglobin 34.7 pg (28.0-33.3); Mean Platelet Volume 10.9 fL (9.4-12.4); Platelet Count 256 K/mcL (140-400); Red Blood Count 4.01 M/mcL (4.19-5.50); Red Cell Distribution Width 13.9 % (11.5-14.5); White Blood Count 7.8 K/mcL (4.3-11.1)
[2022-01-19 04:33] LABS: BUN/Creatinine Ratio 12 (6-26); Blood Urea Nitrogen 15 mg/dL (8-23); Calcium 8.8 mg/dL (8.6-10.3); Carbon Dioxide 27 mEq/L (23-29); Chloride 101 mEq/L (98-107); Glucose 93 mg/dL (70-105); Osmolality,Calculated 279 (280-300); Potassium 3.9 mEq/L (3.5-5.1); Sodium 134 mEq/L (136-145); eGFR For African Americans > 60 (> 60); eGFR For Non-African Americans 60 (> 60)
[2022-01-19] MEDS: Metoprolol XL (24 HR) Succ 50 MG TAB.ER.24H PO SCH (08:40)
[2022-01-19] MEDS: Aspirin Enteric Coated 81 MG Tablet PO SCH (08:40)
[2022-01-19] MEDS: Isosorbide MONOnitrate (24 HR) 30 MG TAB.ER.24H PO SCH (08:40)
[2022-01-19 11:03] VITALS: BP 149/93; PULSE 79; TEMP 97.5; O2SAT 96
[2022-01-19] MEDS ORDERED: Apixaban 5 MG TABLET PO SCH (11:45)
== END 2022-01-19 12:53 | disposition home or self-care (01) ==
LOC: 3BNU 17:37 → EMEROOARM 17:37 → SUATTDRO 21:33 → 3BNU 21:50
PROVIDERS: ADMIT Internal Medicine; ATTEND Internal Medicine

== ENCOUNTER 2022-03-20 16:34 | Inpatient (IN) ==
[2022-03-20] MEDS ORDERED: Isovue-370 500 ML BOTTLE IVP ONE (16:48)
[2022-03-20 17:05] LABS: Basophils % 0.6 %; Eosinophils # 0.1 K/mcL (0.0-0.6); Eosinophils % 1.7 %; Hematocrit 47.6 % (37.5-50.1); Hemoglobin 15.8 g/dL (12.9-16.9); Immature Granulocytes % 0.1 % (0-4); Lymphocytes # 1.4 K/mcL (0.6-4.6); Lymphocytes % 19.1 %; Mean Corpuscular HGB Conc 33.2 g/dL (31.6-35.5); Mean Corpuscular Hemoglobin 32.8 pg (28.0-33.3); Mean Corpuscular Volume 98.8 fL (83.0-100.0); Monocytes # 0.5 K/mcL (0.0-1.3); Monocytes % 6.7 %; Neutrophils # 5.2 K/mcL (1.6-8.9); Platelet Count 297 K/mcL (140-400); Red Blood Count 4.82 M/mcL (4.19-5.50); Segmented Neutrophils % 71.8 %; White Blood Count 7.2 K/mcL (4.3-11.1)
[2022-03-20 17:12] LABS: INR 1.1; Prothrombin Time 12.1 Seconds (9.4-12.1)
[2022-03-20 17:15] LABS: Activated Partial Thrombo Time 30.9 Seconds (26.0-36.0)
[2022-03-20 17:26] LABS: Alanine Aminotransferase 10 Units/L (7-52); Albumin 3.9 g/dL (3.5-5.7); Albumin/Globulin Ratio 1.3 (1.1-2.2); Alkaline Phosphatase 88 Units/L (34-104); Aspartate Amino Transferase 15 Units/L (13-39); BUN/Creatinine Ratio 15 (6-26); Bilirubin,Direct 0.1 mg/dL (0.0-0.2); Bilirubin,Indirect 0.4 mg/dL (0.0-1.0); Bilirubin,Total 0.5 mg/dL (0.3-1.0); Blood Urea Nitrogen 16 mg/dL (8-23); Calcium 9.3 mg/dL (8.6-10.3); Carbon Dioxide 27 mEq/L (23-29); Chloride 102 mEq/L (98-107); Ethanol < 10 mg/dL (Less than 10); Globulin 3.1 g/dL (2.4-3.5); Glucose 85 mg/dL (70-105); Osmolality,Calculated 284 (280-300); Potassium 3.6 mEq/L (3.5-5.1); Sodium 137 mEq/L (136-145); eGFR For African Americans > 60 (> 60); eGFR For Non-African Americans > 60 (> 60)
[2022-03-20 17:27] LABS: Troponin I 0.03 ng/mL (< 0.04)
[2022-03-20 18:56] LABS: Bilirubin,Urine Negative (Negative); Blood,Urine Negative (Negative); Clarity,Urine Clear (Clear); Color,Urine Colorless (Yellow); Glucose,Urine (UA) Normal (Normal); Ketones,Urine 20 mg/dL (Negative); Leukocyte Esterase,Urine Negative (Negative); Nitrite,Urine Negative (Negative); Protein,Urine Trace mg/dL (Neg-Trace); Specific Gravity,Urine > 1.030 (1.010-1.025); Urobilinogen,Urine Normal (Normal)
[2022-03-20 19:05] LABS: Amphetamine Screen,Urine Negative ng/mL (Cutoff=1000); Barbiturate Screen,Urine Negative ng/mL (Cutoff=200); Benzodiazepines Screen,Urine Negative ng/mL (Cutoff=200); Cannabinoid Screen,Urine Negative ng/mL (Cutoff = 50); Cocaine Screen,Urine Negative ng/mL (Cutoff= 300); Opiate Screen,Urine Negative ng/mL (Cutoff=300); Phencyclidine Screen,Urine Negative ng/mL (Cutoff=25)
[2022-03-20] MEDS ORDERED: *HR* Labetalol 20 MG/4 ML SYRINGE IVP ONE (19:14)
[2022-03-20] MEDS ORDERED: *HR* OxyCODONE Immed Rel 5 MG TABLET PO PRN (19:19)
[2022-03-20] MEDS ORDERED: Naloxone 0.4 MG/ML INJ IVP PRN (19:19)
[2022-03-20] MEDS ORDERED: Acetaminophen 325 MG TABLET PO PRN (19:19)
[2022-03-20] MEDS ORDERED: Ondansetron ODT 4 MG TAB.RAPDIS SL PRN (19:19)
[2022-03-20] MEDS ORDERED: *HR* HYDROcodone/Acet 5/325 mg TABLET PO PRN (19:19)
[2022-03-20] MEDS: Apixaban 5 MG TABLET PO SCH (21:14)
[2022-03-20] MEDS: Metoprolol XL (24 HR) Succ 50 MG TAB.ER.24H PO SCH (21:15)
[2022-03-20] MEDS: Nicotine 21 MG PATCH.TD24 TD SCH ×2 (21:16→21:28)
[2022-03-20] MEDS: Isosorbide MONOnitrate (24 HR) 30 MG TAB.ER.24H PO SCH (21:16)
[2022-03-20] MEDS: FLUoxetine 20 MG CAPSULE PO SCH (21:17)
[2022-03-21] MEDS ORDERED: *HR* Labetalol 20 MG/4 ML SYRINGE IVP ONE (00:51)
[2022-03-21 02:07] LABS: Hemoglobin 14.5 g/dL (12.9-16.9); Mean Corpuscular HGB Conc 33.7 g/dL (31.6-35.5); Mean Corpuscular Hemoglobin 33.2 pg (28.0-33.3); Mean Corpuscular Volume 98.4 fL (83.0-100.0); Mean Platelet Volume 10.3 fL (9.4-12.4); Platelet Count 293 K/mcL (140-400); Red Blood Count 4.37 M/mcL (4.19-5.50); Red Cell Distribution Width 13.7 % (11.5-14.5)
[2022-03-21 02:27] LABS: Alanine Aminotransferase 9 Units/L (7-52); Albumin 3.5 g/dL (3.5-5.7); Albumin/Globulin Ratio 1.2 (1.1-2.2); Alkaline Phosphatase 78 Units/L (34-104); Aspartate Amino Transferase 12 Units/L (13-39); BUN/Creatinine Ratio 16 (6-26); Bilirubin,Total 0.6 mg/dL (0.3-1.0); Blood Urea Nitrogen 16 mg/dL (8-23); Calcium 8.8 mg/dL (8.6-10.3); Carbon Dioxide 24 mEq/L (23-29); Chloride 103 mEq/L (98-107); Cholesterol 185 mg/dL (< 200); Globulin 2.9 g/dL (2.4-3.5); Glucose 90 mg/dL (70-105); HDL Cholesterol 37 mg/dL (40-59); LDL Cholesterol,Calculated 125 mg/dL (< 100); Magnesium 2.1 mg/dL (1.6-2.6); Osmolality,Calculated 281 (280-300); Phosphorous 3.7 mg/dL (2.7-4.5); Potassium 3.5 mEq/L (3.5-5.1); Sodium 135 mEq/L (136-145); Total Protein 6.4 g/dL (6.4-8.9); Triglycerides 115 mg/dL (< 150); eGFR For African Americans > 60 (> 60); eGFR For Non-African Americans > 60 (> 60)
[2022-03-21 04:11] LABS: Estimated Average Glucose 103 mg/dl; Hemoglobin A1C 5.2 %
[2022-03-21] MEDS: Apixaban 5 MG TABLET PO SCH ×2 (08:37→21:43)
[2022-03-21] MEDS: Isosorbide MONOnitrate (24 HR) 30 MG TAB.ER.24H PO SCH (08:37)
[2022-03-21] MEDS: Metoprolol XL (24 HR) Succ 50 MG TAB.ER.24H PO SCH ×2 (08:37→21:43)
[2022-03-21] MEDS: Aspirin Enteric Coated 81 MG Tablet PO SCH (08:37)
[2022-03-21] MEDS: Nicotine 21 MG PATCH.TD24 TD SCH (08:37)
[2022-03-21] MEDS: FLUoxetine 20 MG CAPSULE PO SCH (08:38)
[2022-03-21] MEDS ORDERED: *HR* LORazepam 2 MG/ML VIAL IVP PRN ×2 (10:03)
[2022-03-21] MEDS ORDERED: Acetaminophen 325 MG TABLET PO PRN (10:15)
[2022-03-21] MEDS: *HR* LORazepam 2 MG/ML VIAL IVP PRN ×2 (17:45→21:59)
[2022-03-22] MEDS: *HR* LORazepam 2 MG/ML VIAL IVP PRN (02:32)
[2022-03-22] MEDS: Thiamine (B-1) 100 MG TABLET PO SCH ×2 (07:58→15:27)
[2022-03-22] MEDS: Vitamin B Complex/Vit C/Vit E 1 EACH TABLET PO SCH ×2 (07:58→15:27)
[2022-03-22] MEDS: Isosorbide MONOnitrate (24 HR) 30 MG TAB.ER.24H PO SCH ×2 (07:58→15:27)
[2022-03-22] MEDS: Aspirin Enteric Coated 81 MG Tablet PO SCH ×2 (07:58→15:27)
[2022-03-22] MEDS: Apixaban 5 MG TABLET PO SCH ×3 (07:58→20:09)
[2022-03-22] MEDS: Folic Acid 1 MG TABLET PO SCH ×2 (07:58→15:27)
[2022-03-22] MEDS: Metoprolol XL (24 HR) Succ 50 MG TAB.ER.24H PO SCH ×3 (07:58→20:09)
[2022-03-22] MEDS: FLUoxetine 20 MG CAPSULE PO SCH ×2 (07:59→15:27)
[2022-03-22] MEDS: Nicotine 21 MG PATCH.TD24 TD SCH ×2 (07:59→10:26)
[2022-03-22] MEDS: Levalbuterol Neb 0.63 MG/3 ML IH SCH ×3 (09:51→20:08)
[2022-03-23] MEDS: Levalbuterol Neb 0.63 MG/3 ML IH SCH ×2 (04:00→10:10)
[2022-03-23] MEDS: Metoprolol XL (24 HR) Succ 50 MG TAB.ER.24H PO SCH ×2 (09:03→22:30)
[2022-03-23] MEDS: Isosorbide MONOnitrate (24 HR) 30 MG TAB.ER.24H PO SCH (09:03)
[2022-03-23] MEDS: Thiamine (B-1) 100 MG TABLET PO SCH (09:03)
[2022-03-23] MEDS: Nicotine 21 MG PATCH.TD24 TD SCH (09:03)
[2022-03-23] MEDS: Aspirin Enteric Coated 81 MG Tablet PO SCH (09:03)
[2022-03-23] MEDS: Folic Acid 1 MG TABLET PO SCH (09:03)
[2022-03-23] MEDS: Vitamin B Complex/Vit C/Vit E 1 EACH TABLET PO SCH (09:03)
[2022-03-23] MEDS: Apixaban 5 MG TABLET PO SCH ×2 (09:03→22:30)
[2022-03-23] MEDS: FLUoxetine 20 MG CAPSULE PO SCH (09:03)
[2022-03-23 09:32] LABS: Basophils # 0.1 K/mcL (0.0-0.2); Basophils % 0.9 %; Eosinophils # 0.1 K/mcL (0.0-0.6); Eosinophils % 1.6 %; Hematocrit 48.3 % (37.5-50.1); Immature Granulocytes % 0.4 % (0-4); Lymphocytes # 1.7 K/mcL (0.6-4.6); Lymphocytes % 22.6 %; Mean Corpuscular HGB Conc 33.5 g/dL (31.6-35.5); Mean Corpuscular Hemoglobin 33.3 pg (28.0-33.3); Mean Corpuscular Volume 99.2 fL (83.0-100.0); Mean Platelet Volume 10.7 fL (9.4-12.4); Monocytes # 0.7 K/mcL (0.0-1.3); Monocytes % 8.5 %; Neutrophils # 5.1 K/mcL (1.6-8.9); Platelet Count 281 K/mcL (140-400); Red Blood Count 4.87 M/mcL (4.19-5.50); White Blood Count 7.7 K/mcL (4.3-11.1)
[2022-03-23 09:35] LABS: Hemoglobin 16.2 g/dL (12.9-16.9)
[2022-03-23 09:53] LABS: BUN/Creatinine Ratio 16 (6-26); Blood Urea Nitrogen 18 mg/dL (8-23); Calcium 9.4 mg/dL (8.6-10.3); Carbon Dioxide 22 mEq/L (23-29); Chloride 105 mEq/L (98-107); Glucose 104 mg/dL (70-105); Osmolality,Calculated 284 (280-300); Potassium 3.9 mEq/L (3.5-5.1); Sodium 136 mEq/L (136-145); eGFR For African Americans > 60 (> 60); eGFR For Non-African Americans > 60 (> 60)
[2022-03-23] MEDS: Melatonin 3 MG TABLET PO PRN (22:29)
[2022-03-24 07:19] LABS: Basophils # 0.1 K/mcL (0.0-0.2); Basophils % 0.7 %; Eosinophils # 0.2 K/mcL (0.0-0.6); Eosinophils % 1.8 %; Hemoglobin 14.7 g/dL (12.9-16.9); Immature Granulocytes % 0.3 % (0-4); Lymphocytes # 1.6 K/mcL (0.6-4.6); Lymphocytes % 17.9 %; Mean Corpuscular HGB Conc 33.4 g/dL (31.6-35.5); Mean Corpuscular Hemoglobin 32.7 pg (28.0-33.3); Monocytes % 10.9 %; Neutrophils # 6.1 K/mcL (1.6-8.9); Platelet Count 286 K/mcL (140-400); Red Blood Count 4.49 M/mcL (4.19-5.50); Red Cell Distribution Width 13.6 % (11.5-14.5); Segmented Neutrophils % 68.4 %; White Blood Count 8.9 K/mcL (4.3-11.1)
[2022-03-24 07:55] LABS: Alanine Aminotransferase 9 Units/L (7-52); Albumin 3.6 g/dL (3.5-5.7); Albumin/Globulin Ratio 1.2 (1.1-2.2); Alkaline Phosphatase 97 Units/L (34-104); Aspartate Amino Transferase 16 Units/L (13-39); BUN/Creatinine Ratio 18 (6-26); Bilirubin,Total 0.7 mg/dL (0.3-1.0); Blood Urea Nitrogen 20 mg/dL (8-23); Calcium 9.1 mg/dL (8.6-10.3); Carbon Dioxide 24 mEq/L (23-29); Chloride 106 mEq/L (98-107); Globulin 2.9 g/dL (2.4-3.5); Glucose 117 mg/dL (70-105); Magnesium 1.9 mg/dL (1.6-2.6); Osmolality,Calculated 286 (280-300); Potassium 3.6 mEq/L (3.5-5.1); Sodium 136 mEq/L (136-145); Total Protein 6.5 g/dL (6.4-8.9); eGFR For African Americans > 60 (> 60); eGFR For Non-African Americans > 60 (> 60)
[2022-03-24] MEDS: Metoprolol XL (24 HR) Succ 50 MG TAB.ER.24H PO SCH ×2 (08:17→21:43)
[2022-03-24] MEDS: Aspirin Enteric Coated 81 MG Tablet PO SCH (08:17)
[2022-03-24] MEDS: Folic Acid 1 MG TABLET PO SCH (08:18)
[2022-03-24] MEDS: FLUoxetine 20 MG CAPSULE PO SCH (08:18)
[2022-03-24] MEDS: Vitamin B Complex/Vit C/Vit E 1 EACH TABLET PO SCH (08:18)
[2022-03-24] MEDS: Thiamine (B-1) 100 MG TABLET PO SCH (08:18)
[2022-03-24] MEDS: Apixaban 5 MG TABLET PO SCH ×2 (08:18→21:43)
[2022-03-24] MEDS: Isosorbide MONOnitrate (24 HR) 30 MG TAB.ER.24H PO SCH (08:18)
[2022-03-24] MEDS: Nicotine 21 MG PATCH.TD24 TD SCH (08:22)
[2022-03-24] MEDS: Levalbuterol Neb 0.63 MG/3 ML IH PRN ×2 (10:34→16:35)
[2022-03-24] MEDS ORDERED: *HR* Midazolam HCl 2 MG/2 ML VIAL IVP PRN (12:56)
[2022-03-24] MEDS ORDERED: *HR* FentaNYL (PF) 100 MCG/2 ML VIAL IVP PRN (12:56)
[2022-03-24] MEDS ORDERED: 0.9 % Sodium Chloride 500 ML IVC ONE (12:56)
[2022-03-24] MEDS ORDERED: Lidocaine Viscous Oral Soln 15 ML SOLUTION MM PRN (12:56)
[2022-03-24] MEDS ORDERED: *HR* Midazolam HCl 5 MG/5 ML VIAL IVP ONE ×2 (13:13)
[2022-03-24] MEDS: Melatonin 3 MG TABLET PO PRN (21:43)
[2022-03-25 05:45] LABS: Hematocrit 42.1 % (37.5-50.1); Hemoglobin 14.3 g/dL (12.9-16.9); Mean Corpuscular Hemoglobin 32.9 pg (28.0-33.3); Mean Platelet Volume 11.2 fL (9.4-12.4); Platelet Count 266 K/mcL (140-400); Red Blood Count 4.34 M/mcL (4.19-5.50); Red Cell Distribution Width 13.7 % (11.5-14.5); White Blood Count 9.1 K/mcL (4.3-11.1)
[2022-03-25 06:08] LABS: BUN/Creatinine Ratio 17 (6-26); Blood Urea Nitrogen 20 mg/dL (8-23); Carbon Dioxide 20 mEq/L (23-29); Chloride 105 mEq/L (98-107); Glucose 87 mg/dL (70-105); Osmolality,Calculated 288 (280-300); Potassium 3.8 mEq/L (3.5-5.1); Sodium 138 mEq/L (136-145); eGFR For African Americans > 60 (> 60); eGFR For Non-African Americans > 60 (> 60)
[2022-03-25] MEDS: Thiamine (B-1) 100 MG TABLET PO SCH (09:26)
[2022-03-25] MEDS: Folic Acid 1 MG TABLET PO SCH (09:26)
[2022-03-25] MEDS: Apixaban 5 MG TABLET PO SCH ×2 (09:26→19:46)
[2022-03-25] MEDS: Aspirin Enteric Coated 81 MG Tablet PO SCH (09:26)
[2022-03-25] MEDS: FLUoxetine 20 MG CAPSULE PO SCH (09:26)
[2022-03-25] MEDS: Metoprolol XL (24 HR) Succ 50 MG TAB.ER.24H PO SCH ×2 (09:26→19:46)
[2022-03-25] MEDS: Vitamin B Complex/Vit C/Vit E 1 EACH TABLET PO SCH (09:26)
[2022-03-25] MEDS: Isosorbide MONOnitrate (24 HR) 30 MG TAB.ER.24H PO SCH (09:26)
[2022-03-25] MEDS: Nicotine 21 MG PATCH.TD24 TD SCH (09:27)
[2022-03-26] MEDS: Metoprolol XL (24 HR) Succ 50 MG TAB.ER.24H PO SCH (08:10)
[2022-03-26] MEDS: FLUoxetine 20 MG CAPSULE PO SCH (08:10)
[2022-03-26] MEDS: Thiamine (B-1) 100 MG TABLET PO SCH (08:10)
[2022-03-26] MEDS: Apixaban 5 MG TABLET PO SCH (08:10)
[2022-03-26] MEDS: Folic Acid 1 MG TABLET PO SCH (08:10)
[2022-03-26] MEDS: Vitamin B Complex/Vit C/Vit E 1 EACH TABLET PO SCH (08:10)
[2022-03-26] MEDS: Isosorbide MONOnitrate (24 HR) 30 MG TAB.ER.24H PO SCH (08:11)
[2022-03-26] MEDS: Aspirin Enteric Coated 81 MG Tablet PO SCH (08:11)
[2022-03-26] MEDS: Nicotine 21 MG PATCH.TD24 TD SCH (08:11)
[2022-03-26 11:25] VITALS: BP 156/94; PULSE 68; TEMP 97.8; O2SAT 92
[2022-03-26] MEDS ORDERED: *HR* Rivaroxaban 10 MG TABLET PO SCH (20:00)
== END 2022-03-26 12:00 | DRG 65 ==
LOC: EMEROOARM 16:34 → 3NENU 16:34 → SUATTDRO 20:27 → 3NENU 21:01 → SUATTDRO 03-23 11:54
PROVIDERS: ADMIT Family Medicine; ATTEND Family Medicine

== ENCOUNTER 2022-04-18 13:14 | Inpatient (IN) ==
[2022-04-18 14:22] LABS: Basophils % 0.3 %; Eosinophils # 0.1 K/mcL (0.0-0.6); Eosinophils % 0.7 %; Hematocrit 40.1 % (37.5-50.1); Hemoglobin 13.3 g/dL (12.9-16.9); Immature Granulocytes % 0.3 % (0-4); Lymphocytes # 1.1 K/mcL (0.6-4.6); Lymphocytes % 9.1 %; Mean Corpuscular HGB Conc 33.2 g/dL (31.6-35.5); Mean Corpuscular Hemoglobin 32.4 pg (28.0-33.3); Mean Corpuscular Volume 97.6 fL (83.0-100.0); Mean Platelet Volume 9.6 fL (9.4-12.4); Monocytes # 0.6 K/mcL (0.0-1.3); Monocytes % 5.6 %; Neutrophils # 9.7 K/mcL (1.6-8.9); Platelet Count 340 K/mcL (140-400); Red Blood Count 4.11 M/mcL (4.19-5.50); Red Cell Distribution Width 13.1 % (11.5-14.5); White Blood Count 11.5 K/mcL (4.3-11.1)
[2022-04-18 14:36] LABS: INR 2.3; Prothrombin Time 25.7 Seconds (9.4-12.1)
[2022-04-18 14:39] LABS: Activated Partial Thrombo Time 32.9 Seconds (26.0-36.0)
[2022-04-18 14:43] LABS: Alanine Aminotransferase 19 Units/L (7-52); Albumin 3.3 g/dL (3.5-5.7); Albumin/Globulin Ratio 1.1 (1.1-2.2); Alkaline Phosphatase 78 Units/L (34-104); Aspartate Amino Transferase 14 Units/L (13-39); BUN/Creatinine Ratio 16 (6-26); Bilirubin,Total 0.5 mg/dL (0.3-1.0); Blood Urea Nitrogen 18 mg/dL (8-23); Calcium 8.8 mg/dL (8.6-10.3); Carbon Dioxide 29 mEq/L (23-29); Chloride 105 mEq/L (98-107); Globulin 3.1 g/dL (2.4-3.5); Glucose 107 mg/dL (70-105); Osmolality,Calculated 290 (280-300); Sodium 139 mEq/L (136-145); Total Protein 6.4 g/dL (6.4-8.9); eGFR For African Americans > 60 (> 60); eGFR For Non-African Americans > 60 (> 60)
[2022-04-18 14:44] LABS: Troponin I < 0.03 ng/mL (< 0.04)
[2022-04-18] MEDS ORDERED: Naloxone 0.4 MG/ML INJ IVP PRN (19:35)
[2022-04-18] MEDS ORDERED: Melatonin 3 MG TABLET PO PRN (19:46)
[2022-04-18] MEDS: Thiamine (B-1) 100 MG in 0.9 % Sodium Chloride 50 ML IVPB SCH (23:34)
[2022-04-19 01:39] LABS: Basophils # 0.1 K/mcL (0.0-0.2); Basophils % 0.5 %; Eosinophils # 0.2 K/mcL (0.0-0.6); Eosinophils % 1.6 %; Hematocrit 38.5 % (37.5-50.1); Hemoglobin 12.8 g/dL (12.9-16.9); Immature Granulocytes % 0.4 % (0-4); Lymphocytes # 1.9 K/mcL (0.6-4.6); Lymphocytes % 20.4 %; Mean Corpuscular HGB Conc 33.2 g/dL (31.6-35.5); Mean Corpuscular Hemoglobin 31.8 pg (28.0-33.3); Mean Corpuscular Volume 95.5 fL (83.0-100.0); Mean Platelet Volume 9.6 fL (9.4-12.4); Monocytes # 0.6 K/mcL (0.0-1.3); Monocytes % 6.4 %; Neutrophils # 6.6 K/mcL (1.6-8.9); Platelet Count 365 K/mcL (140-400); Red Blood Count 4.03 M/mcL (4.19-5.50); Red Cell Distribution Width 12.9 % (11.5-14.5); Segmented Neutrophils % 70.7 %; White Blood Count 9.4 K/mcL (4.3-11.1)
[2022-04-19 02:02] LABS: Alanine Aminotransferase 19 Units/L (7-52); Albumin/Globulin Ratio 0.9 (1.1-2.2); Alkaline Phosphatase 71 Units/L (34-104); Aspartate Amino Transferase 19 Units/L (13-39); BUN/Creatinine Ratio 18 (6-26); Bilirubin,Total 0.5 mg/dL (0.3-1.0); Blood Urea Nitrogen 18 mg/dL (8-23); Calcium 8.6 mg/dL (8.6-10.3); Carbon Dioxide 24 mEq/L (23-29); Chloride 107 mEq/L (98-107); Globulin 3.3 g/dL (2.4-3.5); Glucose 88 mg/dL (70-105); Magnesium 1.9 mg/dL (1.6-2.6); Osmolality,Calculated 291 (280-300); Phosphorous 4.5 mg/dL (2.7-4.5); Potassium 3.7 mEq/L (3.5-5.1); Sodium 140 mEq/L (136-145); Total Protein 6.3 g/dL (6.4-8.9); eGFR For African Americans > 60 (> 60); eGFR For Non-African Americans > 60 (> 60)
[2022-04-19] MEDS ORDERED: *HR* LORazepam 2 MG/ML VIAL IVP PRN ×3 (02:25)
[2022-04-19] MEDS: Aspirin Enteric Coated 81 MG Tablet PO SCH (07:54)
[2022-04-19] MEDS: Folic Acid 1 MG TABLET PO SCH (07:54)
[2022-04-19] MEDS: FLUoxetine 20 MG CAPSULE PO SCH (07:54)
[2022-04-19] MEDS: Thiamine (B-1) 100 MG in 0.9 % Sodium Chloride 50 ML IVPB SCH (07:54)
[2022-04-19] MEDS ORDERED: Thiamine (B-1) 100 MG TABLET PO SCH (09:00)
[2022-04-19] MEDS: *HR* Rivaroxaban 10 MG TABLET PO SCH (22:08)
[2022-04-20] MEDS: Thiamine (B-1) 100 MG in 0.9 % Sodium Chloride 50 ML IVPB SCH (08:14)
[2022-04-20] MEDS: FLUoxetine 20 MG CAPSULE PO SCH (08:15)
[2022-04-20] MEDS: Aspirin Enteric Coated 81 MG Tablet PO SCH (08:15)
[2022-04-20] MEDS: Folic Acid 1 MG TABLET PO SCH (08:15)
[2022-04-20] MEDS: Furosemide 20 MG TABLET PO SCH (13:17)
[2022-04-20] MEDS: Isosorbide MONOnitrate (24 HR) 60 MG TAB.ER.24H PO SCH (13:17)
[2022-04-20] MEDS: *HR* Rivaroxaban 10 MG TABLET PO SCH (20:21)
[2022-04-20] MEDS: Metoprolol XL (24 HR) Succ 50 MG TAB.ER.24H PO SCH (20:21)
[2022-04-20] MEDS: Sennosides/Docusate Sodium TABLET PO SCH (20:22)
[2022-04-21 04:22] LABS: Amphetamine Screen,Urine Negative ng/mL (Cutoff=1000); Barbiturate Screen,Urine Negative ng/mL (Cutoff=200); Benzodiazepines Screen,Urine Negative ng/mL (Cutoff=200); Bilirubin,Urine Negative (Negative); Blood,Urine Negative (Negative); Calcium Oxalate Crystals,Urine Present per hpf; Cannabinoid Screen,Urine Negative ng/mL (Cutoff = 50); Clarity,Urine Clear (Clear); Cocaine Screen,Urine Negative ng/mL (Cutoff= 300); Color,Urine Light-Yellow (Yellow); Glucose,Urine (UA) Normal (Normal); Ketones,Urine Negative (Negative); Leukocyte Esterase,Urine Trace (Negative); Mucus,Urine Few per lpf (None-Few); Nitrite,Urine Negative (Negative); Opiate Screen,Urine Negative ng/mL (Cutoff=300); Phencyclidine Screen,Urine Negative ng/mL (Cutoff=25); Protein,Urine Trace mg/dL (Neg-Trace); RBC,Urine 0-3 per hpf (0-3); Specific Gravity,Urine 1.022 (1.010-1.025); Urobilinogen,Urine Normal (Normal)
[2022-04-21] MEDS: Furosemide 20 MG TABLET PO SCH (08:47)
[2022-04-21] MEDS: Isosorbide MONOnitrate (24 HR) 60 MG TAB.ER.24H PO SCH (08:47)
[2022-04-21] MEDS: Aspirin Enteric Coated 81 MG Tablet PO SCH (08:47)
[2022-04-21] MEDS: Metoprolol XL (24 HR) Succ 50 MG TAB.ER.24H PO SCH (08:47)
[2022-04-21] MEDS: FLUoxetine 20 MG CAPSULE PO SCH (08:47)
[2022-04-21] MEDS: Sennosides/Docusate Sodium TABLET PO SCH (08:47)
[2022-04-21] MEDS: Folic Acid 1 MG TABLET PO SCH (08:47)
[2022-04-21 14:32] VITALS: BP 116/76; PULSE 78; TEMP 98.1; O2SAT 92
== END 2022-04-21 19:13 | disposition home health service (06) | DRG 312 ==
LOC: EMEROOARM 13:14 → 3BNU 13:14 → SUATTDRO 18:40 → 3BNU 19:46
PROVIDERS: ADMIT Student in an Organized Health Care Education/Training Program; ATTEND Internal Medicine

== ENCOUNTER 2022-08-10 11:50 | Inpatient (IN) ==
[2022-08-10 12:30] LABS: Basophils # 0.1 K/mcL (0.0-0.2); Basophils % 0.5 %; Eosinophils # 0.1 K/mcL (0.0-0.6); Eosinophils % 1.1 %; Hematocrit 43.7 % (37.5-50.1); Hemoglobin 14.3 g/dL (12.9-16.9); Immature Granulocytes % 0.4 % (0-4); Lymphocytes # 2.1 K/mcL (0.6-4.6); Mean Corpuscular HGB Conc 32.7 g/dL (31.6-35.5); Mean Corpuscular Volume 94.8 fL (83.0-100.0); Mean Platelet Volume 10.1 fL (9.4-12.4); Monocytes # 0.6 K/mcL (0.0-1.3); Monocytes % 5.7 %; Neutrophils # 7.1 K/mcL (1.6-8.9); Platelet Count 268 K/mcL (140-400); Red Blood Count 4.61 M/mcL (4.19-5.50); Red Cell Distribution Width 14.4 % (11.5-14.5); Segmented Neutrophils % 71.3 %
[2022-08-10 12:48] LABS: Calcium 9.6 mg/dL (8.6-10.3); Potassium 3.6 mEq/L (3.5-5.1)
[2022-08-10 13:23] LABS: INR 3.2; Prothrombin Time 35.8 Seconds (9.4-12.1)
[2022-08-10 13:26] LABS: Activated Partial Thrombo Time 57.5 Seconds (26.0-36.0)
[2022-08-10] MEDS ORDERED: Naloxone 0.4 MG/ML INJ IVP PRN (22:09)
[2022-08-10] MEDS ORDERED: Acetaminophen 325 MG TABLET PO PRN (22:09)
[2022-08-10] MEDS ORDERED: Ondansetron 4 MG/2 ML VIAL IVP PRN (22:09)
[2022-08-11] MEDS: Pantoprazole 40 MG VIAL IVP SCH ×3 (00:23→17:47)
[2022-08-11 03:56] LABS: Basophils % 0.5 %; Eosinophils # 0.2 K/mcL (0.0-0.6); Eosinophils % 2.3 %; Hematocrit 39.6 % (37.5-50.1); Hemoglobin 13.3 g/dL (12.9-16.9); Immature Granulocytes % 0.3 % (0-4); Lymphocytes # 2.4 K/mcL (0.6-4.6); Lymphocytes % 30.2 %; Mean Corpuscular HGB Conc 33.6 g/dL (31.6-35.5); Mean Corpuscular Volume 92.3 fL (83.0-100.0); Mean Platelet Volume 10.3 fL (9.4-12.4); Monocytes # 0.7 K/mcL (0.0-1.3); Monocytes % 8.4 %; Neutrophils # 4.6 K/mcL (1.6-8.9); Platelet Count 255 K/mcL (140-400); Red Blood Count 4.29 M/mcL (4.19-5.50); Red Cell Distribution Width 14.4 % (11.5-14.5); Segmented Neutrophils % 58.3 %; White Blood Count 7.9 K/mcL (4.3-11.1)
[2022-08-11 04:02] LABS: INR 3.5; Prothrombin Time 38.7 Seconds (9.4-12.1)
[2022-08-11 04:19] LABS: Albumin 3.6 g/dL (3.5-5.7); Albumin/Globulin Ratio 1.2 (1.1-2.2); Bilirubin,Direct 0.2 mg/dL (0.0-0.2); Bilirubin,Indirect 0.6 mg/dL (0.0-1.0); Bilirubin,Total 0.8 mg/dL (0.3-1.0); Calcium 9.2 mg/dL (8.6-10.3); Globulin 2.9 g/dL (2.4-3.5); Magnesium 1.7 mg/dL (1.6-2.6); Potassium 3.3 mEq/L (3.5-5.1); Total Protein 6.5 g/dL (6.4-8.9)
[2022-08-11 04:46] LABS: Thyroid Stimulating Hormone 1.71 mcIU/mL (0.340-5.600)
[2022-08-11] MEDS ORDERED: Potassium Chloride Elixir 20 MEQ/15 ML UDC PO ONE (12:26)
[2022-08-11] MEDS: Furosemide 20 MG TABLET PO SCH (13:48)
[2022-08-11] MEDS: Metoprolol XL (24 HR) Succ 50 MG TAB.ER.24H PO SCH (23:01)
[2022-08-12 02:16] LABS: Basophils # 0.1 K/mcL (0.0-0.2); Basophils % 0.6 %; Eosinophils # 0.2 K/mcL (0.0-0.6); Eosinophils % 1.6 %; Hematocrit 41.5 % (37.5-50.1); Hemoglobin 13.5 g/dL (12.9-16.9); Immature Granulocytes % 0.3 % (0-4); Lymphocytes # 2.6 K/mcL (0.6-4.6); Lymphocytes % 25.6 %; Mean Corpuscular HGB Conc 32.5 g/dL (31.6-35.5); Mean Corpuscular Hemoglobin 30.3 pg (28.0-33.3); Mean Corpuscular Volume 93.3 fL (83.0-100.0); Mean Platelet Volume 10.3 fL (9.4-12.4); Monocytes # 0.8 K/mcL (0.0-1.3); Monocytes % 7.6 %; Neutrophils # 6.4 K/mcL (1.6-8.9); Platelet Count 260 K/mcL (140-400); Red Blood Count 4.45 M/mcL (4.19-5.50); Red Cell Distribution Width 14.2 % (11.5-14.5); Segmented Neutrophils % 64.3 %
[2022-08-12 02:36] LABS: Calcium 9.2 mg/dL (8.6-10.3); Potassium 3.6 mEq/L (3.5-5.1)
[2022-08-12] MEDS: Pantoprazole 40 MG VIAL IVP SCH (06:52)
[2022-08-12] MEDS ORDERED: FLUoxetine 20 MG CAPSULE PO SCH (09:00)
[2022-08-12] MEDS ORDERED: Cyanocobalamin (B-12) 1,000 MCG TABLET PO SCH (09:00)
[2022-08-12] MEDS ORDERED: Cholecalciferol (D-3) 1,000 UNIT (25MCG) TABLET PO SCH (09:00)
[2022-08-12] MEDS ORDERED: Aspirin Enteric Coated 81 MG Tablet PO SCH (09:00)
[2022-08-12] MEDS ORDERED: Thiamine (B-1) 100 MG TABLET PO SCH (09:00)
[2022-08-12] MEDS ORDERED: Isosorbide MONOnitrate (24 HR) 60 MG TAB.ER.24H PO SCH (09:00)
[2022-08-12] MEDS ORDERED: Folic Acid 1 MG TABLET PO SCH (09:00)
[2022-08-12] MEDS: Furosemide 20 MG TABLET PO SCH (09:37)
[2022-08-12] MEDS: Metoprolol XL (24 HR) Succ 50 MG TAB.ER.24H PO SCH (09:37)
[2022-08-12 10:47] VITALS: BP 133/86; PULSE 75; TEMP 97.9; O2SAT 97
[2022-08-12] MEDS ORDERED: Flu Vac QV 22-23 (6MOS UP)/PF 0.5 ML SYRINGE IM ONE (10:57)
== END 2022-08-12 11:42 | disposition home or self-care (01) | DRG 378 ==
LOC: EMEROOARM 11:50 → 3ANU 11:50
PROVIDERS: ADMIT Student in an Organized Health Care Education/Training Program; ATTEND Student in an Organized Health Care Education/Training Program